=== PATIENT | female | born 1960 | race American Indian/Alaskan Native ===

== ENCOUNTER 2020-11-11 10:06 | Emergency (ER) | payer SELFPAY ==
[2020-11-11] VITALS (8 sets, daily range): BP systolic 103–130; BP diastolic 62–78; PULSE 71–95; RESP 16–32; TEMP 37; O2SAT 94–99; BMI 41.6
[2020-11-11] MEDS: sodium chloride 0.9% 1,000 ML 999 ML IV ×2 (10:39→12:45)
[2020-11-11] MEDS: ondansetron 2 mg/ML SDV 2 mL 4 MG IVP (10:40)
[2020-11-11 10:41] LABS: Basophils % 0.2 %; Hematocrit 35.1 % (37.0-47.0); Hemoglobin 11.8 g/dL (11.5-15.3); Lymphocytes # 1.6 10^3/uL (0.8-4.8); Lymphocytes % 15.4 %; Mean Corpuscular HGB Conc 33.6 g/dL (30.0-36.0); Mean Corpuscular Volume 101.2 fL (81-99); Mean Platelet Volume 9.5 fL (7.4-10.4); Monocytes # 0.8 10^3/uL (0.2-0.9); Monocytes % 7.7 %; Neutrophils # 8.07 10^3/uL (1.8-7.7); Neutrophils % 76.2 %; Nucleated Red Blood Cells % 0.4 %; Platelet Count 250 10^3/cmm (130-400); Red Blood Count 3.47 10^6/uL (4.1-5.3); Red Cell Distribution Width 13.2 % (12.1-15.1); White Blood Count 10.6 10^3/uL (4.0-10.0)
[2020-11-11 11:08] LABS: Alanine Aminotransferase 31 U/L (0-33); Albumin Level 4.3 g/dL (3.5-5.2); Alkaline Phosphatase 81 IU/L (35-105); Blood Urea Nitrogen 15 mg/dL (8-23); Calcium 8.2 mg/dL (8.5-10.5); Carbon Dioxide 21 mmol/L (22-29); Chloride 90 mmol/L (98-107); Globulin 2.4 g/dL (1.3-4.6); Glomerular Filtration Rate 45.5 mL/min (90-130); Glucose 150 mg/dL (65-115); Osmolality Calculated 278 mOsm/kg (285-295); Sodium 132 mmol/L (136-145); Total Bilirubin 0.7 mg/dL (0.15-1.2); Total Protein 6.7 g/dL (6.6-8.7)
--- NOTE | 2020-11-11 11:11 | PC.NURSE ---
patient stated felt better, no acute distress noted at this time.
[2020-11-11 11:12] LABS: Anion Gap 25.1 (5-19)
[2020-11-11 11:13] LABS: Aspartate Amino Transferase 71 U/L (0-32); Potassium 4.1 mmol/L (3.5-5.1)
--- NOTE | 2020-11-11 11:27 | ED_ITS ---
HPI - Nausea/Vomiting/Diarrhea General: Chief complaint: Nausea/Vomiting/Diarrhea Stated complaint: n/v having cp while n/v Time Seen by Provider: 11/11/20 10:27 History of Present Illness: HPI Narrative: 60 yo m female who presents to ER with comppiants of N/V and mild chest discomfort. She had been out in the heat for the last couple of days and had feeling feeling dehydrated lightheaded and dizzy. She then ate some chicken and crackers that she bought a local [employer] store and immediately got sick to her stomach and is vomiting. She states she feels dehydrated similar to something that happened 8 years ago. MD elicited complaint: nausea and vomiting Onset (ago): hour(s) Description of vomiting: food contents and watery Associated nausea: Yes Associated abdominal pain: Yes Location of pain: Diffuse Pain consistency: intermittent Severity: mild Quality: cramping Exacerbating factors: eating Associated symtoms: Reports bloating, anorexia, malaise and nausea; Denies altered mental status, anxiety, change in vision, chest pain, cough, diaphoresis, decreased urine output, dizziness, dysuria, epistaxis, fatigue, fecal incontinence, fevers/chills, headache(s), myalgias, numbness, palpitations, rash, short of breath, syncope, tenesmus, tinnitus or weakness Review of Systems Const: Reports: malaise; Denies: fatigue or diaphoresis Eyes: Denies: change in vision ENMT: Denies: tinnitus or epistaxis Card: Denies: chest pain, palpitations or syncope Resp: Denies: dyspnea, productive cough or non-productive cough GI: Reports: nausea and bloating; Denies: fecal incontinence : Denies: dysuria Skin/Breast: Denies: rash or pruritus Neuro: Denies: headache(s) or dizziness Psych: Denies: anxiety Physical Exam Const: COMMON NORMALS: no acute distress EXAM LIMITATIONS: no altered mental status GENERAL APPEARANCE: cooperative and comfortable ORIENTATIO N/CONSCIOUSNESS: Yes awake, Yes oriented to person, Yes oriented to place and Yes oriented to time HENMT: COMMON NORMALS: normocephalic, atraumatic, hearing grossly normal bilaterally and external ears normal HEAD & SCALP: normocephalic and atraumatic EXTERNAL EAR: Yes external ears normal Neck/C-Spine: COMMON NORMALS: no JVD Resp: COMMON NORMALS: normal respiratory effort, No retractions, No use of accessory muscles and clear to auscultation bilaterally AUSCULTATION: clear to auscultation bilaterally Cardio: COMMON NORMALS: no JVD, regular rate, regular rhythm and No murmurs present (Cardio) RATE: regular rate RHYTHM: regular rhythm GI: COMMON NORMALS: Soft to palpation and No hepatosplenomegaly present AUSCULTATION: Yes normoactive bowel sounds PALPATION: Yes Soft to palpation, No Tenderness to palpation present (GI), No Guarding due to palpation present (GI) and Yes No hepatosplenomegaly present Extremity: COMMON NORMALS: normal to inspection, capillary refill normal, no clubbing, cyanosis or edema, no calf tenderness and no pedal edema Neuro: SENSORIUM/ORIENTATION: Yes oriented to person, Yes oriented to place a nd Yes oriented to time Skin: COMMON NORMALS: no rashes or lesions noted GENERAL SKIN EXAM: no rashes or lesions noted Course Vital Signs: Vital signs: Vital Signs Temperature 98.6 F 11/11/20 10:18 Pulse Rate 92 11/11/20 15:47 Respiratory Rate 16 11/11/20 15:47 Blood Pressure 130/75 11/11/20 15:47 Pulse Oximetry 96 11/11/20 15:47 MDM - Nausea/Vomiting/Diarrhea MDM Narrative: Medical decision making narrative: Improved after fluids. Will discharge home with antiemetics clear liquid diet for 48 hours and advance as tolerated worsening symptoms return Lab Data: Labs: Lab Results 11/11/20 11/11/20 11/11/20 Range/Units 10:25 10:25 12:01 WBC 10.6 H (4.0-10.0) 10^3/ uL RBC 3.47 L (4.1-5.3) 10^6/u L Hgb 11.8 (11.5-15.3) g/dL Hct 35.1 L (37.0-47.0) % MCV 101.2 H (81-99) fL MCH 34.0 (28.0-34.0) pg MCHC 33.6 (30.0-36.0) g/dL RDW 13.2 (12.1-15.1) % Plt Count 250 (130-400) 10^3/c mm MPV 9.5 (7.4-10.4) fL Neut % (Auto) 76.2 % Lymph % (Auto) 15.4 % Hunt % (Auto) 7.7 % Eos % (Auto) 0.0 % Baso % (Auto) 0.2 % Neut # (Auto) 8.07 H (1.8-7.7) 10^3/u L Lymph # (Auto) 1.6 (0.8-4.8) 10^3/u L Hunt # (Auto) 0.8 (0.2-0.9) 10^3/u L Eos # (Auto) 0.0 (0.0-0.8) 10^3/u L Baso # (Auto) 0.0 (0.0-0.1) 10^3/u L Nucleated RBC % (a uto) 0.4 % Nucleated RBCs # 0.0 /100WBC Sodium 132 L (136-145) mmol/L Potassium 4.1 (3.5-5.1) mmol/L Chloride 90 L (98-107) mmol/L Carbon Dioxide 21 L (22-29) mmol/L Anion Gap 25.1 H (5-19) BUN 15 (8-23) mg/dL Creatinine 1.2 H (0.5-0.9) mg/dL GFR Calculation 45.5 L (90-130) mL/min Glucose 150 H (65-115) mg/dL Calculated Osmolal ity 278 L (285-295) mOsm/k g Calcium 8.2 L (8.5-10.5) mg/dL Total Bilirubin 0.7 (0.15-1.2) mg/dL AST 71 H (0-32) U/L ALT 31 (0-33) U/L Alkaline Phosphata se 81 (35-105) IU/L Total Protein 6.7 (6.6-8.7) g/dL Albumin 4.3 (3.5-5.2) g/dL Globulin 2.4 (1.3-4.6) g/dL Urine Color Yellow (Yellow) Urine Appearance Cloudy (CLEAR) Urine pH 5 (5-7) Ur Specific Gravit y 1.020 (1.005-1.030) Urine Protein Trace (Negative) Urine Glucose (UA) Norm (Normal) Urine Ketones 2+ H (Negative) Urine Blood 2+ H (Negative) Urine Nitrate Negative (Negative) Urine Bilirubin 2+ H (Negative) Urine Urobilinogen 1 H (Negative) mg/dL Ur Leukocyte Amy ase Negative (Negative) Urine RBC 0-4 H (0-2) /hpf Urine WBC 0-4 H (0-5) /hpf Ur Squamous Epith Cells 10-15 H (0-5) /hpf Amorphous Sediment Not Reportable Urine Bacteria 1+ H (NONE) /hpf Hyaline Casts 55-80 H /lpf Urine Mucus Trace /hpf 11/11/20 Range/Units 14:18 WBC (4.0-10.0) 10^3/ uL RBC (4.1-5.3) 10^6/u L Hgb (11.5-15.3) g/dL Hct (37.0-47.0) % MCV (81-99) fL MCH (28.0-34.0) pg MCHC (30.0-36.0) g/dL RDW (12.1-15.1) % Plt Count (130-400) 10^3/c mm MPV (7.4-10.4) fL Neut % (Auto) % Lymph % (Auto) % Hunt % (Auto) % Eos % (Auto) % Baso % (Auto) % Neut # (Auto) (1.8-7.7) 10^3/u L Lymph # (Auto) (0.8-4.8) 10^3/u L Hunt # (Auto) (0.2-0.9) 10^3/u L Eos # (Auto) (0.0-0.8) 10^3/u L Baso # (Auto) (0.0-0.1) 10^3/u L Nucleated RBC % (a uto) % Nucleated RBCs # /100WBC Sodium 133 L (136-145) mmol/L Potassium 3.7 (3.5-5.1) mmol/L Chloride 94 L (98-107) mmol/L Carbon Dioxide 22 (22-29) mmol/L Anion Gap 20.7 H (5-19) BUN 17 (8-23) mg/dL Creatinine 1.0 H (0.5-0.9) mg/dL GFR Calculation 56.2 L (90-130) mL/min Glucose 113 (65-115) mg/dL Calculated Osmolal ity 278 L (285-295) mOsm/k g Calcium 7.6 L (8.5-10.5) mg/dL Total Bilirubin (0.15-1.2) mg/dL AST (0-32) U/L ALT (0-33) U/L Alkaline Phosphata se (35-105) IU/L Total Protein (6.6-8.7) g/dL Albumin (3.5-5.2) g/dL Globulin (1.3-4.6) g/dL Urine Color (Yellow) Urine Appearance (CLEAR) Urine pH (5-7) Ur Specific Gravit y (1.005-1.030) Urine Protein (Negative) Urine Glucose (UA) (Normal) Urine Ketones (Negative) Urine Blood (Negative) Urine Nitrate (Negative) Urine Bilirubin (Negative) Urine Urobilinogen (Negative) mg/dL Ur Leukocyte Amy ase (Negative) Urine RBC (0-2) /hpf Urine WBC (0-5) /hpf Ur Squamous Epith Cells (0-5) /hpf Amorphous Sediment Urine Bacteria (NONE) /hpf Hyaline Casts /lpf Urine Mucus /hpf Discharge Plan Discharge Patient Disposition: Home Clinical Impression: Nausea & vomiting, Dehydration Condition: Stable Prescriptions: New Zofran 4 mg tablet 4 mg PO Q6H PRN (Reason: nausea and vomiting) Qty: 20 RF: 0 No Action lisinopril-hydrochlorothiazide 20-12.5 mg Tablet 1 tab PO DAILY PRN (Reason: Blood Pressure) RF: 0 Discharge Orders: Discharge ED (Routine); Ordered 11/11/20 Ordered By: Jitendra Rosas Discharge Diet: Clear Liquid Discharge Activity: Increase activity as tolerated Patient Instructions: Opioid Safety Activity Restrictions/Additional Instructions: Clear liquid diet for 24 to 48 hours and advance as tolerated. Follow-up with your primary care doctor. Return if you have further problems. Coding Level of Care Code ED Event Operations Manager for Louie Reyes
[2020-11-11 12:44] LABS: Add Urine Microscopic? YES; Bilirubin Urine 2+ (Negative); Blood Urine 2+ (Negative); Glucose Urine UA Norm (Normal); Ketones Urine 2+ (Negative); Leukocyte Esterase Urine Negative (Negative); Nitrate Urine Negative (Negative); Protein Urine Trace (Negative); Urine Appearance Cloudy (CLEAR); Urine Color Yellow (Yellow); Urobilinogen Urine 1 mg/dL (Negative); pH Urine 5 (5-7)
[2020-11-11 12:46] LABS: Bacteria Urine 1+ /hpf; RBC Urine 0-4 /hpf (0-2); WBC Urine 0-4 /hpf (0-5)
[2020-11-11] MEDS: promethazine 25 mg/mL SDV 1 mL 12.5 MG IM (12:46)
[2020-11-11 12:47] LABS: Add Urine Culture? No; Hyaline Casts Urine 55-80 /lpf; Mucus Urine TRACE /hpf
[2020-11-11 15:20] LABS: Anion Gap 20.7 (5-19); Blood Urea Nitrogen 17 mg/dL (8-23); Calcium 7.6 mg/dL (8.5-10.5); Carbon Dioxide 22 mmol/L (22-29); Chloride 94 mmol/L (98-107); Glomerular Filtration Rate 56.2 mL/min (90-130); Glucose 113 mg/dL (65-115); Osmolality Calculated 278 mOsm/kg (285-295); Potassium 3.7 mmol/L (3.5-5.1); Sodium 133 mmol/L (136-145)
--- NOTE | 2020-11-11 15:54 | PC.NURSE ---
outpatient form for enteric parasite panel and instructions given to patient
== END 2020-11-11 15:55 | disposition home or self-care (01) ==
PROVIDERS: Emergency Provider Family Medicine
DX: R11.2 Nausea with vomiting, unspecified (principal); E86.0 Dehydration
CPT/HCPCS: 80048; 80053; 81001; 85025; 96361; 96372; 96374; 99284; J2405; J2550; J7030

== ENCOUNTER 2021-06-11 13:04 | Inpatient (IN) | payer SELFPAY ==
[2021-06-11 13:15] VITALS: BP 135/80; PULSE 81; RESP 18; TEMP 36.6; O2SAT 100; BMI 37.0
--- NOTE | 2021-06-11 13:20 | ECG_ITS ---
[facility] Test Date: 2021-06-11 Pat Name: Denia Espino Department: Room: Gender: Female [employer] Supervisor: : 1960 Requested By: Nguyen Coley Order Number: [id number] Aleksandra MD: RAMÓN DAI Measurements Intervals [place] Rate: 72 P: 75 ME: 156 QRS: 67 QRSD: 104 T: 79 QT: 415 QTc: 456 Interpretive Statements SINUS RHYTHM No previous ECG available for comparison Electronically Signed On 06-11-2021 17:47:12 LINING CLEANER by RAMÓN DAI [email or web address]
--- NOTE | 2021-06-11 13:41 | ED_ITS ---
HPI - Chest Pain General: Chief Complaint: Chest Pain Stated Complaint: CP Time Seen by Provider: 06/11/21 13:35 Source: patient Limitations: no limitations History of Present Illness: HPI narrative: Patient with complaints of intermittent chest pain, tachycardia, palpitations and mild shortness of breath since last night. She states she lives alone and has had no exposures to flu or COVID. She states she has not seen anybody in at least 1 month. She denies any previous cardiac history. She states she has no other medical problems except for obesity. She states she is lost approximately 100 pounds in the last 2 months by dieting. Patient denies tobacco use. She takes no routine medications. MD complaint: chest pain Onset (ago): day(s) (2) Timing of current episode: episodic Prior episodes: No Onset: during rest Pain location: substernal Pain radiation: none Severity: mild Quality: aching Relieving factors: nothing Exacerbating factors: nothing Associated symptoms: Reports dyspnea and palpitations; Deny abdominal pain, diaphoresis, fever(s), leg edema, nausea, sense of impending doom, syncope or vomiting Treatment prior to arrival: none and aspirin (had asa last pm) Review of Systems Const: Denies: fever(s) or diaphoresis Eyes: Denies: change in vision ENMT: Denies: throat pain Card: Reports: chest pain and palpitations; Denies: lightheadedness or syncope Resp: Reports: dyspnea GI: Denies: abdominal pain, nausea or vomiting : Denies: flank pain Musc: Denies: neck pain or back pain Skin/Breast: Denies: rash or pruritus Neuro: Denies: headache(s) or numbness in extremities Psych: Denies: anxiety Mello/Lymph: Denies: enlarged lymph nodes Physical Exam Const: COMMON NORMALS: no acute distress, patient oriented x3, no limitations, healthy appearing, alert and well nourished EXAM LIMITATIONS: altered mental status GENERAL APPEARANCE: cooperative NUTRITIONAL APPEARANCE: obese morbidly obese HENMT: COMMON NORMALS: normocephalic and atraumatic HEAD & SCALP: normocephalic and atraumatic FACE & SINUS: normal facial exam Eye: COMMON NORMALS: EOMs intact bilaterally Neck/C-Spine: COMMON NORMALS: full ROM, no lymphadenopathy, supple, no meningeal signs and no JVD GENERAL: Yes normal visual inspection Lymph: LYMPHATIC: no lymphadenopathy noted Chest: COMMONS NORMALS: normal inspection of the chest and normal palpation of entire chest wall CHEST: No Ecchymosis present and No rash Resp: COMMON NORMALS: normal respiratory effort, No retractions, No use of accessory muscles and clear to auscultation bilaterally EFFORT & INSPECTION: No respiratory distress AUSCULTATION: clear to auscultation bilaterally Cardio: COMMON NORMALS: no JVD, regular rate, regular rhythm and Peripheral pulses 2+ throughout JUGULAR VENOUS DISTENTION: no JVD RATE: regular rate RHYTHM: regular rhythm PERIPHERAL PULSES: Peripheral pulses 2+ throughout GI: COMMON NORMALS: Normal to inspection, nondistended, normoactive bowel sounds present and non-tender : COMMON NORMALS: Yes no CVA tenderness BLADDER/KIDNEY EXAM: Yes no CVA tenderness Back/Pelvis: COMMON NORMALS: no CVA tenderness Extremity: COMMON NORMALS: normal to inspection, full ROM and capillary refill normal Neuro: COMMON NORMALS: patient oriented x3, CN's II-XII intact bilaterally, no focal motor deficits and no sensory deficits noted SENSORIUM/ORIENTATION: Yes alert MENINGEAL SIGNS: Yes no meningeal signs Psych: COMMON NORMALS: mental status grossly normal and Normal thought process present THOUGHT PROCESS: Normal thought process present Skin: COMMON NORMALS: no rashes or lesions noted and no wounds GENERAL SKIN EXAM: no rashes or lesions noted Course Vital Signs: Vital signs: Vital Signs Temperature 97.8 F 06/11/21 13:15 Pulse Rate 79 06/11/21 16:40 Respiratory Rate 16 06/11/21 16:40 Blood Pressure 139/58 06/11/21 16:40 Pulse Oximetry 100 06/11/21 16:40 MDM - Chest Pain MDM Narrative: Medical decision making narrative: 1635: 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 He suggested admission to the hospitalist and if stress test is positive he will consult. 1640: D/w Dr. Chaves. Lab Data: Attestation: I reviewed the patient's lab results. Labs: Lab Results 06/11/21 06/11/21 06/11/21 14:07 14:07 14:07 WBC 6.1 10^3/uL 10^3/ uL (4.0-10.0) RBC 3.04 10^6/uL L 10 ^6/uL (4.1-5.3) Hgb 10.8 g/dL L g/dL (11.5-15.3) Hct 33.0 % L % (37.0-47.0) MCV 108.6 fl H fl (81-99) MCH 35.5 pg H pg (28.0-34.0) MCHC 32.7 g/dL g/dL (30.0-36.0) RDW 15.2 % H % (12.1-15.1) Plt Count 238 10^3/cmm 10^3 /cmm (130-400) MPV 9.9 fL fL (7.4-10.4) Neut % (Auto) 63.5 % % Lymph % (Auto) 25.2 % % [place] % (Auto) 9.8 % % Eos % (Auto) 0.8 % % Baso % (Auto) 0.5 % % Neut # (Auto) 3.89 10^3/uL 10^3 /uL (1.8-7.7) Lymph # (Auto) 1.5 10^3/uL 10^3/ uL (0.8-4.8) [place] # (Auto) 0.6 10^3/uL 10^3/ uL (0.2-0.9) Eos # (Auto) 0.1 10^3/uL 10^3/ uL (0.0-0.8) Baso # (Auto) 0.0 10^3/uL 10^3/ uL (0.0-0.1) Nucleated RBC % (a uto) 0.3 % % Nucleated RBCs # 0.0 /100WBC /100W BC Sodium 137 mmol/L mmol/L (136-145) Potassium 3.7 mmol/L mmol/L (3.5-5.1) Chloride 98 mmol/L mmol/L (98-107) Carbon Dioxide 14 mmol/L L mmol/ L (22-29) Anion Gap 28.7 H (5-19) BUN 6 mg/dL L mg/dL (8-23) Creatinine 0.7 mg/dL mg/dL (0.5-0.9) GFR Calculation 84.5 mL/min L mL/ min (90-130) Glucose 106 mg/dL mg/dL (65-115) Calculated Osmolal ity 282 mOsm/kg L mOs m/kg (285-295) Calcium 8.4 mg/dL L mg/dL (8.5-10.5) Troponin T Baselin e 9 ng/L ng/L (0-10) Troponin T 120 Min maggie Delta Troponin T NT-Pro-B Natriuret Pep 1238 pg/mL H pg/m L (0-125) 06/11/21 16:04 WBC RBC Hgb Hct MCV MCH MCHC RDW Plt Count MPV Neut % (Auto) Lymph % (Auto) [place] % (Auto) Eos % (Auto) Baso % (Auto) Neut # (Auto) Lymph # (Auto) [place] # (Auto) Eos # (Auto) Baso # (Auto) Nucleated RBC % (a uto) Nucleated RBCs # Sodium Potassium Chloride Carbon Dioxide Anion Gap BUN Creatinine GFR Calculation Glucose Calculated Osmolal ity Calcium Troponin T Baselin e Troponin T 120 Min maggie 9.60 ng/L ng/L (0-10) Delta Troponin T 0.60 ABS# ABS# (0-10) NT-Pro-B Natriuret Pep Imaging Data^: CXR: Attestation: I personally reviewed and interpreted this imaging study as follows: My impression: Nothing acute on chest x-ray Radiologist's impression: PROCEDURE INFORMATION: Exam: XR Chest Exam date and time: 06/11/2021 1:45 PM Age: 61 years old Clinical indication: Chest pain/pressure. Dyspnea. TECHNIQUE: Imaging protocol: XR of the chest. Views: 1 view. COMPARISON: No relevant prior studies available. FINDINGS: Lungs: There is smooth bulging of the right hilum that could reflect an ascending thoracic aortic aneurysm. No pulmonary consolidation. Subsegmental atelectasis in the lower chest bilaterally. Pleural spaces: No pleural effusion. No pneumothorax. Heart/Mediastinum: The cardiac silhouette is unremarkable. No gross evidence of pneumomediastinum. Bones/joints: No gross fracture. There is widening of the AC joint on the right which could reflect acute or remote acromioclavicular joint separation or prior surgery. XR/XR chest 1V portable [id number] IMPRESSION: 1. There is smooth bulging of the right hilum that could reflect an ascending thoracic aortic aneurysm. Consider CTA chest to further assess if clinically warranted. 2. There is widening of the AC joint on the right which could reflect acute or remote acromioclavicular joint separation or prior surgery. Correlate clinically. Dictated By:Ronak Duranigned By:Ronak Duranigned Date/Time:06/11/[address] Chest: Radiologist's impression: PROCEDURE INFORMATION: Exam: CTA Chest Without And With Contrast Exam date and time: 06/11/2021 3:20 PM Age: 61 years old Clinical indication: Chest pressure/pain. Complains of central chest pain/pressure with abnormal chest x-ray. TECHNIQUE: Imaging protocol: Computed tomographic angiography of the chest without and with contrast. 3D rendering (Not supervised by radiologist): MIP and/or 3D reconstructed images were created by the technologist. Radiation optimization: All CT scans at this facility use at least one of these dose optimization techniques: automated exposure control; mA and/or kV adjustment per patient size (includes targeted exams where dose is matched to clinical indication); or iterative reconstruction. Contrast material: OMNI 350; Contrast volume: 95 ml; Contrast route: INTRAVENOUS (IV); COMPARISON: CR (CHEST, ) 06/11/2021 2:15 PM RADIATION DOSE METRICS: Total DLP (mGy-cm): 1446.37 FINDINGS: Pulmonary arteries: No acute pulmonary embolus is identified. The main pulmonary artery is enlarged (4 cm) suspicious for pulmonary arterial hypertension. Aorta: No thoracic aortic aneurysm. No thoracic aortic dissection. Lungs: Calcified granuloma in the right upper lobe. Subsegmental atelectasis in the lingula. No pulmonary consolidation. No pulmonary mass. Pleural spaces: No pleural effusion. No pneumothorax. Heart: No pericardial effusion. Lymph nodes: Small calcified right hilar lymph nodes are noted. No significant mediastinal lymphadenopathy. Diaphragm: Small hiatal hernia. Liver: There is diffuse hepatic steatosis. There is a lesion between the left hepatic lobe and the overlying diaphragm that measures 1.0 x 1.7 x 1.4 cm. There are multiple splenules the left upper quadrant. Bones/joints: No acute fracture is seen. Soft tissues: Incompletely visualized nodule in the right breast with an associated calcification. This nodule measures at least 1.[address]/CT angio chest [id number] IMPRESSION: 1. No acute pulmonary embolus is identified. No thoracic aortic aneurysm or dissection. 2. The main pulmonary artery is enlarged (4 cm) suspicious for pulmonary arterial hypertension. 3. Lesion situated between the left hepatic lobe and the overlying diaphragm. Recommend nonemergent MR abdomen hepatic protocol with and without contrast to better characterize. 4. Incompletely visualized nodule in the right breast with an associated calcification. Recommend nonemergent diagnostic right breast mammogram with concurrent ultrasound to further assess. 5. Small hiatal hernia. 6. Diffuse hepatic steatosis. Dictated By:Ronak Duranigned By:Ronak Duranigned Date/Time:06/11/21 1622 EKG Data^: EKG 1: Attestation: I personally reviewed and interpreted this EKG as follows: EKG interpretation date: 06/11/21 EKG interpretation time: 13:45 Interpretation: Normal EKG. Normal sinus rhythm with heart rate of 72. Normal axis. Normal OH interval, normal QRS, normal T waves, normal ST segments. Normal QT interval. Discharge Plan Discharge Patient Disposition: Placed in Observation Clinical Impression: Chest pain Qualifiers: Chest pain type: unspecified Qualified Code(s): R07.9 - Chest pain, unspecified Coding Level of Care Code ED Charge Manager for Chg Fwd Exam Comprehensive
--- NOTE | 2021-06-11 13:45 | XRR_ITS ---
PROCEDURE INFORMATION: Exam: XR Chest Exam date and time: 06/11/2021 1:45 PM Age: 61 years old Clinical indication: Chest pain/pressure. Dyspnea. TECHNIQUE: Imaging protocol: XR of the chest. Views: 1 view. COMPARISON: No relevant prior studies available. FINDINGS: Lungs: There is smooth bulging of the right hilum that could reflect an ascending thoracic aortic aneurysm. No pulmonary consolidation. Subsegmental atelectasis in the lower chest bilaterally. Pleural spaces: No pleural effusion. No pneumothorax. Heart/Mediastinum: The cardiac silhouette is unremarkable. No gross evidence of pneumomediastinum. Bones/joints: No gross fracture. There is widening of the AC joint on the right which could reflect acute or remote acromioclavicular joint separation or prior surgery. XR/XR chest 1V portable [id number] IMPRESSION: 1. There is smooth bulging of the right hilum that could reflect an ascending thoracic aortic aneurysm. Consider CTA chest to further assess if clinically warranted. 2. There is widening of the AC joint on the right which could reflect acute or remote acromioclavicular joint separation or prior surgery. Correlate clinically.
[2021-06-11 14:16] LABS: Basophils % 0.5 %; Eosinophils # 0.1 10^3/uL (0.0-0.8); Eosinophils % 0.8 %; Hemoglobin 10.8 g/dL (11.5-15.3); Lymphocytes # 1.5 10^3/uL (0.8-4.8); Lymphocytes % 25.2 %; Mean Corpuscular HGB Conc 32.7 g/dL (30.0-36.0); Mean Corpuscular Hemoglobin 35.5 pg (28.0-34.0); Mean Corpuscular Volume 108.6 fl (81-99); Mean Platelet Volume 9.9 fL (7.4-10.4); Monocytes # 0.6 10^3/uL (0.2-0.9); Monocytes % 9.8 %; Neutrophils # 3.89 10^3/uL (1.8-7.7); Neutrophils % 63.5 %; Nucleated Red Blood Cells % 0.3 %; Platelet Count 238 10^3/cmm (130-400); Red Blood Count 3.04 10^6/uL (4.1-5.3); Red Cell Distribution Width 15.2 % (12.1-15.1); White Blood Count 6.1 10^3/uL (4.0-10.0)
[2021-06-11] MEDS: aspirin 81 mg Chew Tablet 324 MG PO (14:28)
[2021-06-11 14:41] LABS: Troponin(5th) Baseline 9 ng/L (0-10)
[2021-06-11 14:44] LABS: Blood Urea Nitrogen 6 mg/dL (8-23); Calcium 8.4 mg/dL (8.5-10.5); Carbon Dioxide 14 mmol/L (22-29); Chloride 98 mmol/L (98-107); Glomerular Filtration Rate 84.5 mL/min (90-130); Glucose 106 mg/dL (65-115); NT Pro B Type Natriuretic Pept 1238 pg/mL (0-125); Osmolality Calculated 282 mOsm/kg (285-295); Sodium 137 mmol/L (136-145)
[2021-06-11 14:48] LABS: Anion Gap 28.7 (5-19); Potassium 3.7 mmol/L (3.5-5.1)
--- NOTE | 2021-06-11 15:20 | CTR_ITS ---
PROCEDURE INFORMATION: Exam: CTA Chest Without And With Contrast Exam date and time: 06/11/2021 3:20 PM Age: 61 years old Clinical indication: Chest pressure/pain. Complains of central chest pain/pressure with abnormal chest x-ray. TECHNIQUE: Imaging protocol: Computed tomographic angiography of the chest without and with contrast. 3D rendering (Not supervised by radiologist): MIP and/or 3D reconstructed images were created by the technologist. Radiation optimization: All CT scans at this facility use at least one of these dose optimization techniques: automated exposure control; mA and/or kV adjustment per patient size (includes targeted exams where dose is matched to clinical indication); or iterative reconstruction. Contrast material: OMNI 350; Contrast volume: 95 ml; Contrast route: INTRAVENOUS (IV); COMPARISON: CR (CHEST, ) 06/11/2021 2:15 PM RADIATION DOSE METRICS: Total DLP (mGy-cm): 1446.37 FINDINGS: Pulmonary arteries: No acute pulmonary embolus is identified. The main pulmonary artery is enlarged (4 cm) suspicious for pulmonary arterial hypertension. Aorta: No thoracic aortic aneurysm. No thoracic aortic dissection. Lungs: Calcified granuloma in the right upper lobe. Subsegmental atelectasis in the lingula. No pulmonary consolidation. No pulmonary mass. Pleural spaces: No pleural effusion. No pneumothorax. Heart: No pericardial effusion. Lymph nodes: Small calcified right hilar lymph nodes are noted. No significant mediastinal lymphadenopathy. Diaphragm: Small hiatal hernia. Liver: There is diffuse hepatic steatosis. There is a lesion between the left hepatic lobe and the overlying diaphragm that measures 1.0 x 1.7 x 1.4 cm. There are multiple splenules the left upper quadrant. Bones/joints: No acute fracture is seen. Soft tissues: Incompletely visualized nodule in the right breast with an associated calcification. This nodule measures at least 1.[address]/CT angio chest [id number] IMPRESSION: 1. No acute pulmonary embolus is identified. No thoracic aortic aneurysm or dissection. 2. The main pulmonary artery is enlarged (4 cm) suspicious for pulmonary arterial hypertension. 3. Lesion situated between the left hepatic lobe and the overlying diaphragm. Recommend nonemergent MR abdomen hepatic protocol with and without contrast to better characterize. 4. Incompletely visualized nodule in the right breast with an associated calcification. Recommend nonemergent diagnostic right breast mammogram with concurrent ultrasound to further assess. 5. Small hiatal hernia. 6. Diffuse hepatic steatosis.
[2021-06-11] MEDS: iohexol 350 mg/mL 100 mL Btl IV (15:52)
[2021-06-11 16:40] VITALS: BP 139/58; PULSE 79; RESP 16; O2SAT 100
[2021-06-11 16:59] LABS: Erythrocyte Sedimentation Rate 21 mm/hr (0-15)
[2021-06-11 17:18] LABS: Alanine Aminotransferase 9 U/L (0-33); Aspartate Amino Transferase 27 U/L (0-32); Gamma Glutamyl Transferase 98 U/L (5-36); Lactate Dehydrogenase 139 U/L (135-214)
[2021-06-11 17:24] LABS: Procalcitonin 0.07 ng/mL (0-0.5)
--- NOTE | 2021-06-11 17:41 | PM.HP ---
Providers/Chief Complaint Chief Complaint: CP History of Present Illness Denia Espino is a 61 year old female with a past medical history of morbid obesity, hypertension, who presents to [facility] for chest pain. 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 Also describes some nausea, no right upper quadrant pain. In the emergency room her initial troponin was negative, EKG no acute ST-T wave changes, CTA negative for pulm emboli or aortic dissection, hospitalist team was called for admission Review of Systems Const: Denies: fever(s), chills, fatigue or malaise Eyes: Denies: change in vision or blurry vision ENMT: Denies: nasal congestion Resp: Denies: dyspnea, productive cough, non-productive cough or wheezing GI: Denies: abdominal pain, nausea, vomiting, constipation, hematochezia or melena : Denies: flank pain, dysuria or urinary frequency Neuro: Denies: headache(s), dizziness or vertigo Medications/Allergies Home Medications Medication Instructions Recorded Confirmed Last Taken Type No Known Home Medications 06/11/21 06/11/21 Unknown History Allergies Allergy/AdvReac Type Severity Reaction Status Date / Time acetaminophen [From Vicodin] Allergy ADR-Vomitin Verified 11/11/20 10:26 g cephalexin [From Keflex] Allergy ADR-Vomitin Verified 11/11/20 10:26 g hydrocodone [From Vicodin] Allergy ADR-Vomitin Verified 11/11/20 10:26 g propoxyphene [From Darvon] Allergy ADR-Vomitin Verified 11/11/20 10:26 g PFSH Acute PFSH: Medical History (Updated 06/11/21 @ 17:43 by Rian Chaves MD) History of hypertension Morbid obesity Surgical History (Updated 06/11/21 @ 17:43 by Rian Chaves MD) History of right hip replacement Status post splenectomy Family History (Updated 06/11/21 @ 17:43 by Rian Chaves MD) Mother CAD (coronary artery disease) Father Stroke Social History (Updated 06/11/21 @ 17:44 by Rian Chaves MD) Smoking and tobacco status: never smoked Alcohol intake: never Substance/Drug Use: never Vitals/I&O/Wt Last Vital Signs Temp 97.8 F 06/11/21 13:15 Pulse 79 06/11/21 16:40 Resp 16 06/11/21 16:40 BP 139/58 06/11/21 16:40 Pulse Ox 100 06/11/21 16:40 Weight last 48 hrs Weight 94.801 kg Physical Exam Const: COMMON NORMALS: no acute distress and patient oriented x3 GENERAL APPEARANCE: cooperative and comfortable HENMT: COMMON NORMALS: normocephalic HEAD & SCALP: normocephalic Eye: COMMON NORMALS: Equal, round and reactive pupils present, EOMs intact bilaterally and no papilledema GENERAL EYE: appearance normal, both eyes and all related structures PUPIL: Yes Equal, round and reactive pupils present Neck/C-Spine: COMMON NORMALS: full ROM, no lymphadenopathy, no JVD and Thyroid normal THYROID: Thyroid normal Lymph: LYMPHATIC: no lymphadenopathy noted Resp: COMMON NORMALS: normal respiratory effort, No retractions, No use of accessory muscles and clear to auscultation bilaterally AUSCULTATION: clear to auscultation bilaterally Cardio: COMMON NORMALS: no JVD, regular rate, regular rhythm, S1 normal heart sound present, S2 normal heart sound present, No gallops present (Cardio), No clicks present (Cardio) and No murmurs present (Cardio) RATE: regular rate RHYTHM: regular rhythm HEART SOUNDS: S1 normal heart sound present and S2 normal heart sound present GI: COMMON NORMALS: Normal to inspection, nondistended, normoactive bowel sounds present, Soft to palpation, non-tender and No hepatosplenomegaly present PALPATION: Yes Soft to palpation and Yes Tenderness to palpation present (GI) Details: RUQ Extremity: COMMON NORMALS: normal to inspection, full ROM and no pedal edema Neuro: COMMON NORMALS: patient oriented x3, CN's II-XII intact bilaterally, moves all extremities and no focal motor deficits Psych: COMMON NORMALS: mental status grossly normal, Normal thought process present and cooperative THOUGHT PROCESS: Normal thought process present Data : 06/11/21 14:07 06/11/21 14:07 A&P Assessment and plan (1) Chest pain: - Admit to cardiac stepdown unit -Serial troponins, serial EKGs, monitor for chest pain -Aspirin, statin -Nitro as needed for chest pain -Cardiac echocardiogram -Right upper quadrant ultrasound, LFTs -Elevated BNP, consider Lasix -N.p.o. 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
[2021-06-11 20:18] VITALS: PULSE 97; RESP 16; O2SAT 98
[2021-06-11 20:55] VITALS: BMI 40.8
[2021-06-11 20:55] LABS: Troponin 5 6HR 10.07 ng/L (0-10); Troponin 5 6HR Delta 1.07 ng/L (0-12)
[2021-06-11 21:00] VITALS: BP 125/68; PULSE 95; RESP 16; TEMP 36.7; O2SAT 97
[2021-06-11] MEDS: famotidine 20 mg Tablet PO (21:20)
[2021-06-11] MEDS: atorvastatin 40 mg Tablet PO (21:20)
[2021-06-11 21:29] LABS: Thyroid Stimulating Hormone 4.83 uIU/mL (0.27-4.20)
[2021-06-11] MEDS: diphenhydrAMINE 50 mg Capsule PO (23:30)
[2021-06-11 23:34] VITALS: BP 134/64; PULSE 87; RESP 16; TEMP 36.5; O2SAT 95
[2021-06-12] VITALS (8 sets, daily range): BP systolic 102–119; BP diastolic 60–72; PULSE 70–139; RESP 13–18; TEMP 36.5–37.1; O2SAT 95–98
--- NOTE | 2021-06-12 03:33 | ECG_ITS ---
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: : 1960 Requested By: Damion Sparks Order Number: [id number] Aleksandra MD: RAMÓN DAI Measurements Intervals [place] Rate: 169 P: OR: QRS: 32 QRSD: 102 T: -60 QT: 257 QTc: 432 Interpretive Statements ATRIAL FIBRILLATION WITH RAPID VENTRICULAR RESPONSE NONSPECIFIC ST & T-WAVE ABNORMALITY CRITICAL TEST RESULT Compared to ECG 06/11/2021 13:13:40 T-wave abnormality now present Sinus rhythm no longer present Electronically Signed On 06-12-2021 20:53:51 CIGAR MAKING MACHINE SUPERVISOR by RAMÓN DAI [id number]
[2021-06-12] MEDS: metoprolol tartrate 1 mg/1 mL SDV 5 mL 5 MG (03:50)
[2021-06-12] MEDS: sodium chloride 0.9% 500 ML 999 ML IV (04:28)
[2021-06-12 05:33] LABS: Basophils % 0.5 %; Eosinophils # 0.2 10^3/uL (0.0-0.8); Eosinophils % 2.5 %; Hemoglobin 10.3 g/dL (11.5-15.3); Lymphocytes # 2.3 10^3/uL (0.8-4.8); Lymphocytes % 37.2 %; Mean Corpuscular HGB Conc 33.2 g/dL (30.0-36.0); Mean Corpuscular Hemoglobin 35.6 pg (28.0-34.0); Mean Corpuscular Volume 107.3 fl (81-99); Mean Platelet Volume 10.7 fL (7.4-10.4); Monocytes # 0.6 10^3/uL (0.2-0.9); Monocytes % 10.5 %; Neutrophils # 2.98 10^3/uL (1.8-7.7); Neutrophils % 48.8 %; Nucleated Red Blood Cells % 0.3 %; Platelet Count 204 10^3/cmm (130-400); Red Blood Count 2.89 10^6/uL (4.1-5.3); Red Cell Distribution Width 15.1 % (12.1-15.1); White Blood Count 6.1 10^3/uL (4.0-10.0)
[2021-06-12 06:03] LABS: Alanine Aminotransferase 9 U/L (0-33); Albumin Level 3.5 g/dL (3.5-5.2); Alkaline Phosphatase 105 IU/L (35-105); Aspartate Amino Transferase 23 U/L (0-32); Blood Urea Nitrogen 6 mg/dL (8-23); Calcium 9.1 mg/dL (8.5-10.5); Carbon Dioxide 20 mmol/L (22-29); Chloride 100 mmol/L (98-107); Chol HDL Ratio 1.79 mg/dL (0.0-4.40); Cholesterol 183 mg/dL (0-200); Creatinine Clr Calc Pharmacy 111.0493; Globulin 2.4 g/dL (1.3-4.6); Glucose 108 mg/dL (65-115); HDL Cholesterol 102 mg/dL (60-100); LDL Cholesterol Calculated 59 mg/dL (50-129); LDL HDL Ratio 0.58 RATIO (0.00-3.22); Magnesium 1.5 mg/dL (1.7-2.3); NT Pro B Type Natriuretic Pept 396 pg/mL (0-125); Osmolality Calculated 280 mOsm/kg (285-295); Sodium 136 mmol/L (136-145); Total Bilirubin 0.7 mg/dL (0.15-1.2); Total Protein 5.9 g/dL (6.6-8.7); Triglycerides 110 mg/dL (0-150)
[2021-06-12 06:31] LABS: Estmated Average Glucose 74; Hemoglobin A1C 4.2 % (4.0-6.0)
[2021-06-12 06:42] LABS: Phosphorus 0.4 mg/dL (2.5-4.5)
--- NOTE | 2021-06-12 06:44 | PC.NURSE ---
Critical phosphorus of 0.4 reported to special education coordinator hospitalist.
--- NOTE | 2021-06-12 07:34 | ECG_ITS ---
[facility] Test Date: 2021-06-12 Pat Name: Denia Espino Department: Room: 108 Gender: Female Special Shopper: Telma Domingo : 1960 Requested By: Rian Chaves Order Number: [id number] Aleksandra MD: Jada Seymour M.D. Interpretive Statements NAME OF STUDY: LEXISCAN SESTAMIBI STRESS TEST INDICATION: Chest Pain PROCEDURE: At the baseline, the blood pressure was 99/72 mm Hg, oxygen saturation of 97% with a heart rate of 90 bpm. The electrocardiogram showed normal sinus rhythm, normal axis and normal ST-T's. The Lexiscan was infused over a period of 20 seconds. A total of 0.4 milligrams of Lexiscan was infused. The stress phase was continued for a total of 5 minutes. Heart rate at the end of the stress phase was 90 bpm, oxygen saturation of 97% with a blood pressure of 102/73 mm Hg. The EKG at the peak infusion revealed no significant ST-T wave changes.The study was terminated due to protocol completion. Sestamibi was injected 20 seconds after the Lexiscan infusion. Blood pressure at the end of the recovery phase was 111/71 bpm, oxygen saturation of 96% with a heart rate of 88 beats per minute. CONCLUSION: 1. No significant EKG changes with the LexiScan infusion. 2. No LexiScan induced chest pain or cardiac arrhythmia. 3. Normal blood pressure and heart rate response. 4. Sestamibi/sestamibi perfusion scan pending; see separate report. Electronically Signed On 06-12-2021 19:52:37 BAKESHOP CLEANER by Jada Seymour M.D. [id number]
[2021-06-12] MEDS: regadenoson 0.4 Mg/5 ml Syringe IVP (08:11)
[2021-06-12] MEDS: ondansetron 2 mg/ML SDV 2 mL 4 MG IVP (08:15)
[2021-06-12] MEDS: phosphorus 250 mg Tablet PO ×2 (09:29→18:22)
[2021-06-12] MEDS: aspirin 81 mg EC Tablet PO (09:29)
[2021-06-12] MEDS: famotidine 20 mg Tablet PO ×2 (09:29→18:22)
[2021-06-12] MEDS: magnesium sulfate premix 2 GM/50 ML PIGGYBACK IV (09:30)
--- NOTE | 2021-06-12 15:54 | P.PN_ITS ---
Subjective Subjective: Interval history: Patient was seen this morning, she was seen in the stress unit lab, currently denying chest pain, she developed A. fib overnight, converted to normal sinus rhythm, currently on Cardizem drip, she also had a accidental fall out of bed, fell on both knees, currently minimal pain, no head trauma, no loss of consciousness, currently denying any chest pain Vitals/I&O/Wt Last Vital Signs Temp 98.8 F 06/12/21 15:11 Pulse 90 06/12/21 15:11 Resp 15 06/12/21 15:11 BP 110/60 06/12/21 11:09 Pulse Ox 98 06/12/21 15:11 06/12/21 06/12/21 06/12/21 06:59 14:59 22:59 Intake Total 754.833 / 994.833 480 / 480 Output Total 200 / 200 Balance 554.833 / 794.833 480 / 480 Weight last 48 hrs Weight 104.644 kg Weight 94.801 kg Physical Exam Const: COMMON NORMALS: no acute distress and patient oriented x3 Resp: COMMON NORMALS: normal respiratory effort, No retractions, No use of accessory muscles and clear to auscultation bilaterally AUSCULTATION: clear to auscultation bilaterally Cardio: COMMON NORMALS: regular rate, regular rhythm, S1 normal heart sound present and S2 normal heart sound present RATE: regular rate RHYTHM: regular rhythm HEART SOUNDS: S1 normal heart sound present and S2 normal heart sound present GI: COMMON NORMALS: Normal to inspection, nondistended, normoactive bowel sounds present, Soft to palpation and non-tender PALPATION: Yes Soft to palpation Extremity: COMMON NORMALS: no pedal edema Neuro: COMMON NORMALS: patient oriented x3 Psych: COMMON NORMALS: mental status grossly normal Data : 06/12/21 04:16 06/12/21 04:16 A&P Assessment and plan (1) Chest pain: - Admit to cardiac stepdown unit -Serial troponins, serial EKGs, monitor for chest pain -Aspirin, statin -Nitro as needed for chest pain -Cardiac echocardiogram pending -Cardiac stress test pending -Elevated BNP, consider Lasix -Patient tells me that she wants to be DNR/DNI, as her father suffered a stroke and laid in the hospital for 6 weeks and she does not want to have that happen to her Hypokalemia, replaced Hypophosphatemia replace Hypomagnesemia replace A. fib with RVR, converted to normal sinus rhythm, continue aspirin Pulm hypertension continue monitor Lesion left hepatic lobe, ultrasound pending Breast lesion, needs outpatient follow-up Status: Acute Qualifiers: Chest pain type: unspecified Qualified Code(s): R07.9 - Chest pain, unspecified (2) Hypokalemia: Status: Acute (3) Hypophosphatemia: Status: Acute (4) Hypomagnesemia: Status: Acute (5) Atrial fibrillation with RVR: Status: Acute Attestations Medical Necessity Statement*: Patient requires hospitalization for chest pain, hypokalemia, hypomagnesemia, hypophosphatemia Coding Level of Care Code 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
--- NOTE | 2021-06-12 15:57 | CTR_ITS ---
PROCEDURE INFORMATION: Exam: CT Abdomen And Pelvis Without And With Contrast Exam date and time: 06/12/2021 3:57 PM Age: 61 years old Clinical indication: Nausea; Prior surgery; Surgery type: Tubal; Additional info: CT liver 3 phase, CT liver 3 phase TECHNIQUE: Imaging protocol: Computed tomography of the abdomen and pelvis without and with contrast. Radiation optimization: All CT scans at this facility use at least one of these dose optimization techniques: automated exposure control; mA and/or kV adjustment per patient size (includes targeted exams where dose is matched to clinical indication); or iterative reconstruction. Contrast material: OMNI 300; Contrast volume: 95 ml; Contrast route: INTRAVENOUS (IV); COMPARISON: CT angio chest [id number] 06/11/2021 3:43 PM RADIATION DOSE METRICS: Total DLP (mGy-cm): 4473.1 FINDINGS: Liver: Mild diffuse hepatic steatosis. There is a wedge-shaped geographic area of decreased attenuation within segment 4 B which has the appearance of focal fat; there is a similar but smaller area within segment 5 along the gallbladder fossa. No enhancing hepatic lesion. Gallbladder and bile ducts: Gallbladder slightly contracted. No visualized stones. Normal caliber bile duct. Pancreas: Normal. No ductal dilation. Spleen: Splenosis in the left upper quadrant. Adrenal glands: Normal. No mass. Kidneys and ureters: Normal. No hydronephrosis. Stomach and bowel: No bowel obstruction. Mild colonic diverticulosis. No active diverticulitis. Appendix: No evidence of appendicitis. Intraperitoneal space: Unremarkable. No free air. No significant fluid collection. Vasculature: No abdominal aortic aneurysm. Incidental 15 mm partially calcified right renal artery aneurysm on image 39 series 4; no rupture. There are 2 right renal arteries. Lymph nodes: Unremarkable. No enlarged lymph nodes. Urinary bladder: Unremarkable as visualized. Reproductive: Slightly lobular uterus with suspected fibroids. Bones/joints: Lumbar degenerative changes. No acute or aggressive osseous lesion. Right hip prosthesis. Soft tissues: Unremarkable. CT/CT abdomen pelvis wo/w [id number] IMPRESSION: 1. Geographic areas of focal fat within hepatic segments IVb and V5, on a background of mild diffuse steatosis. No enhancing liver lesion. 2. Diverticulosis without evidence of active diverticulitis. 3. Lobular uterus with suspected fibroids. 4. 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 This can be evaluated by vascular surgery on a non emergent basis. At the minimum, follow-up CT recommended in 1 year if this has not previously been documented. 5. Right hip prosthesis with related artifact.
[2021-06-12 16:20] LABS: Anion Gap 17.8 (5-19); Blood Urea Nitrogen 8 mg/dL (8-23); Calcium 9.4 mg/dL (8.5-10.5); Carbon Dioxide 23 mmol/L (22-29); Chloride 98 mmol/L (98-107); Glomerular Filtration Rate 161.2 mL/min (90-130); Glucose 115 mg/dL (65-115); Osmolality Calculated 279 mOsm/kg (285-295); Phosphorus 1.1 mg/dL (2.5-4.5); Potassium 3.8 mmol/L (3.5-5.1); Sodium 135 mmol/L (136-145)
[2021-06-12] MEDS: iohexol 300 mg/mL 100 mL Btl IV (18:55)
[2021-06-12] MEDS: LORazepam 1 mg Tablet PO (20:21)
[2021-06-12] MEDS: atorvastatin 40 mg Tablet PO (20:21)
--- NOTE | 2021-06-12 20:41 | PC.NURSE ---
Patient asking to speak with a vegetable washer.
--- NOTE | 2021-06-12 20:42 | NMCV_ITS ---
NM grayson perf SPECT r/s* [id number] Denia Espino Age: 61 Gender: F : 1960 Exam Date: 06/12/2021 07:26 Ordering Phys: Rian Chaves MD Technologist: VICKY Sifuentes Exam Location: [facility] Indications: CHEST PAIN STRESS TEST Please see separate stress test report in [facility] for full findings IMAGE PROTOCOL Rest/Stress 1 Lexiscan Day Radiopharmaceutical Dose (mCi) Administration Site Administered by Rest: Tc-99m 10.8 IV VICKY Stoddard Sestamibi Stress:Tc-99m 32.9 IV VICKY Stoddard Sestamibi Rest: 12-Jun-2021 60 Discovery 630 Stress: 12-Jun-2021 30 Discovery 630 0.4mg Lexiscan. Images obtained in supine and prone position. SPECT RESULTS Technical Quality: Excellent Raw Data Analysis: Normal Image Corrections: No attenuation or motion correction applied Summed Stress Score: 2 Summed Rest Score: 0 Summed Difference Score: 2 PERFUSION FINDINGS Small area of moderately decreased tracer uptake in the mid inferolateral region with complete reversibility in the supine position. However with the prone imaging, there was no reversible defects FUNCTIONAL RESULTS (calculated via Gated SPECT) Stress Image LV EF (%): 64 Stress EDV (mL):114 TID: 1.07 Stress ESV (mL):41 FUNCTIONAL FINDINGS: Segmental wall motion analysis revealing no gross wall motion abnormalities. IMPRESSIONS 1. Myocardial perfusion imaging revealing a small area of reversibility within the mid inferolateral region, suggestive of ischemia in the distribution of the circumflex artery. However because of inconsistency with the prone imaging, this could be artifactual. 2. Normal LV ejection fraction of 64%. 3. LV wall motion analysis revealing no gross wall motion abnormalities. 4. Normal LV volume. No similar previous studies are available for comparison. Clinical correlation is recommended Dr James Azar MD [facility] (Electronically Signed) Final Date: 12 June 2021 18:01 S
--- NOTE | 2021-06-12 20:42 | US_ITS ---
WS: [id number] Complete ABDOMINAL ULTRASOUND HISTORY: hepatic lesion COMPARISON: CT 06/11/2021 Liver: 18.0 cm in length. Liver is moderately enlarged and heterogeneous. Diffuse coarse echotexture throughout the liver. Previously described area of decreased attenuation along the falciform ligament seen by CT is not apparent by ultrasound. No mass identified. Liver is of increased echogenicity as compared to the liver consistent with hepatic steatosis. Portal Vein: Not visualized. Gallbladder: Normally distended with no gallstones, wall thickening or pericholecystic fluid. Gallbladder wall thickness: 0.3 cm. Pancreas: Poorly visualized but does appear atrophic. CBD: 0.5 cm. Right kidney: 12.0 cm x 6.1 cm x 5.9 cm. No mass, cortical thickening or hydronephrosis. Left kidney: 12.2 cm x 5.8 cm x 6.3 cm. No mass, cortical thickening or hydronephrosis. Spleen: Prior splenectomy. Abdominal aorta and IVC are within normal limits. No ascites. US/US abdomen complete* [id number] IMPRESSION: 1. Moderately enlarged liver with diffuse hepatic steatosis. Mass or focal valeria er abnormality is not visualized by ultrasound. I favor the changes within the liver may be due to hepatic steatosis. 2. Recommend MRI liver with and without contrast for further evaluation. This lesion was not included in its entirety on the CT therefore needs further evalu ation. 3. Normal gallbladder.
--- NOTE | 2021-06-12 20:42 | USCV_ITS ---
Denia Espino Age: 61 Gender: F : 1960 Exam Date: 06/12/2021 10:40 Ordering Phys: Rian Chaves MD Technologist: Nataliya Simms Exam Location: [facility] [place] Indication: SOB TACHY BP: 109 / 68 HR: 81 Rhythm: Sinus Technical Quality: Adequate MEASUREMENTS (Male / Female) Normal Values 2D ECHO LV Diastolic Diameter PLAX 4.1 cm 4.2 - 5.9 / 3.9 - 5.3 cm LV Systolic Diameter PLAX 1.9 cm LV Chamber Size 3.8 cm IVS Diastolic Thickness 1.0 cm 0.6 - 1.0 / 0.6 - 0.9 cm IVS Systolic Thickness 0.9 cm LVPW Diastolic Thickness 1.1 cm 0.6 - 1.0 / 0.6 - 0.9 cm LVPW Systolic Thickness 1.5 cm RV Chamber Size 2.3 cm LVOT Diameter 2.0 cm LV Ejection Fraction 2D Teich 85.1 % LV Ejection Fraction MOD 2C 57.9 % LV Ejection Fraction 2C AL 56.6 % LA Diameter 3.3 cm LA Width 3.1 cm LA Height 4.1 cm RA Width 4.2 cm RA Height 4.1 cm Aorta at Sinotubular Diameter 2.9 cm M-MODE Aortic Annulus Diameter 2.6 cm LA Ao Ratio MM 1.3 MV E Point Septal Separation 0.9 cm DOPPLER AV Peak Velocity 177.0 cm/s LVOT Peak Velocity 108.0 cm/s AV Area Cont Eq vti 2.2 cm squared AV Area Cont Eq pk 1.9 cm squared MV Area PHT 3.5 cm squared Mitral E to A Ratio 0.9 MV E' Velocity 43.5 cm/s Mitral E to MV E' Ratio 8.3 Mitral E to LV E' Lateral Ratio 8.8 Mitral E to LV E' Septal Ratio 7.9 TR Peak Velocity 176.1 cm/s TR Peak Gradient 12.4 mmHg TR Mean Velocity 145.1 cm/s TR Mean Gradient 8.7 mmHg TR Velocity Time Integral 42.0 cm TV Peak E Velocity 64.0 cm/s Right Atrial Pressure 3.0 mmHg Pulmonary Artery Systolic Pressu 15.4 mmHg PV Peak Velocity 86.7 cm/s RV Acceleration Time 0.2 s RV Ejection Time 0.4 s RV AcT/ET 0.5 FINDINGS Left Ventricle Normal left ventricular size and systolic function, EF 59 %. No regional wall motion abnormalities. Right Ventricle The right ventricle is normal in size and function. Right Atrium The right atrium is normal in size. Left Atrium The left atrium is normal in size. Mitral Valve No gross abnormalities noted Aortic Valve Thickened aortic valve. Tricuspid Valve Trace tricuspid valve regurgitation. Pulmonic Valve Trace pulmonary valve regurgitation. Pericardium Normal pericardium without effusion. Aorta Normal ascending aorta dimension. CONCLUSIONS Normal left ventricular size and systolic function, EF 59 %. No regional wall motion abnormalities. Thickened aortic valve. Trace pulmonary valve regurgitation. Trace tricuspid alve regurgitation. There is no pericardial effusion. Technically difficult study because of the poor ultrasonic window. Dr James Azar MD [facility] (Electronically Signed) Final Date: 12 June 2021 14:11 S
[2021-06-12] MEDS: diphenhydrAMINE 50 mg Capsule PO (23:38)
--- NOTE | 2021-06-12 23:45 | PC.NURSE ---
Patient states that she has difficulty sleeping at home. Patient states she either takes 2 Tylenol PM or 2 Benadryl at home to sleep. Patient states she cannot take ambien because it makes her mean and she states doesn't want to take anything addictive like Xanax. Patient states Melatonin doesn't work for her. Patient states she knows Tylenol is bad for her liver. Patient given PO Ativan x1 per Dr. Ashford order. Patient also given PRN Benadryl. Patient states that she still can't sleep. Patient states I'm going to ask the doctor if I can go home on something to help me sleep at home.
[2021-06-13] VITALS (7 sets, daily range): BP systolic 118–142; BP diastolic 62–84; PULSE 83–94; RESP 16–19; TEMP 36.6–36.7; O2SAT 96–100
--- NOTE | 2021-06-13 | XACV_ITS ---
Exam Room: 2 Ht: 160 cm Wt: 87 kg BSA: 2.00 m2 Gender: Female : 1960 Exam Priority: Routine Procedure(s): Procedure Description: Diagnostic procedure Procedure Description: Coronary Angiography Diagnostic Cath Status: Urgent Diagnostic Findings * No disease noted in the Left Main, Left Anterior Descending, Right, or Circumflex coronary arteries. * Coronary angiography shows right dominance. Conclusions 1. No disease noted in the Left Main, Left Anterior Descending, Right, or Circumflex coronary arteries. Recommendations * Continue current medical management and risk factor modification. Pressures Phase:Rest AO : 108 / 65 ( 81 ) @ 9:50:00 AM Clinical Evaluation EBL: 5mL-10mL Procedural Details Procedure Consent Obtained. Procedure started. Barbi Pierson RN, OLIVE PITTER was relieved by Em Chang RRT as monitoring person. Pre-Procedure Time Out. Identified patient by full name and date of as verbalized by the patient/guarantor. Does the consent match the physician's order: Yes. Accurate & Complete Informed Consent: Yes. Inpatient/Outpatient History & Physical on Chart: Yes. If H&P is completed, is and addenduem needed: No; If yes, is the addendum complete: N/A. Visualize and Verify Site with Patient/Guarantor: N/A. Relevant Radiology Images available: N/A. Pre-op teaching completed and patient verbalized understanding. The risks, benefits, and alternatives of sedation and/or procedure were discussed by physician. The patient agrees to continue. Procedure started. [facility] Clinical Fraility Score: 3: Managing Well. 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 Chest Pain Symptom Assessment: Atypical Angina. Correct patient, site and procedure confirmed by cath team. Current diagnosis: Chest Pain. PERRLA. 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 Lungs clear x 5 lobes. Physician arrived. Physician scrubbed in. Immediate Pre-Procedure Time Out. Correct Patient: Yes; Correct Procedure: Yes; Correct Site: Yes; Correct Patient Position: Yes; Correct Supplies: Yes; Dried Flammable Prep: Yes; Blood Products Available: N/A;. Baseline sample Acquired. HR: 82 BPM. right radial was prepped with chloroprep then draped in the usual sterile fashion. right groin was prepped with chloroprep then draped in the usual sterile fashion. Oxygen started at 2liters/min via nasal canula. Cardiovascular Instability: No. Lidocaine 1% infiltrated to the right radial. Equipment: 6F - Radial. Cardiac Cath Pack. [employer] Manifold Kit Model BT 2000. Heparinized Saline (2 units/mL), 1000 mL bag. Arterial access obtained. A 5 slovak Curtis catheter in over wire. Multiple views taken of right coronary artery. Catheter redirected to the LCA. Multiple views taken of left coronary artery. Catheter removed over the exchange wire. Physician scrubbed out. A TR Band was successful obtaining hemostatsis at the Right Radial artery insertion site. TR band placed. Hemostasis obtained. Post Procedure: Pulses reassessed and unchanged. PERRLA. 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 No VTE prophylaxis required. Medication's Wasted: Lidocaine 1% = 16 mL. Medication's Wasted: Nitro = 49.8 mg. Medication's Wasted: Heparin = 1000 units. Total IV fluids: 40 mL. Contrast type used: Visipaque 320 mgI/mL, 500 mL bottle. Post-op diagnosis: normal coronaries. Complications: none. Estimated blood loss: 5mL-10mL. Responsiveness - Normal response to verbal stimuli; alert and oriented, PERRLA. Airway - Unaffected, no intervention required; spontaneous ventilation. Circulation: W/N/L, pulses unchanged. Nausea/Vomiting: No. Procedure completed. Patient transferred by wheelchair to 1st floor. Access Site Site: Right Radial artery Sheath Size: 6 Fr Hemostasis Method: TR Band Hemostasis Success: Successful Procedure Medications Start: 11:46 AM Stop: 11:46 AM Medication: Versed Amount: 1 mg Route: I.V. Start: 11:46 AM Stop: 11:46 AM Medication: Fentanyl Amount: 50 mcg Route: I.V. Start: 11:48 AM Stop: 11:48 AM Medication: Nitrogylcerin Amount: 200 mcg Route: I.A. Start: 11:50 AM Stop: 11:50 AM Medication: Heparin Amount: 5000 units Route: I.V. Start: 11:50 AM Stop: 11:50 AM Medication: Versed Amount: 1 mg Route: I.V. I, the attending physician, have reviewed and verified all procedure medications. Yes, all medications given per verbal order History/Risk Factors Hypertension: Yes Dyslipidemia: No Peripheral Arterial Disease (PAD): No Myocardial Infarction ([place]): No Obesity: Yes Renal Disease: No Tobacco Use: Former Prior Interventions PCI: No CABG: No Valve Surgery: No Report Signatures Finalized by Steven Farah MD on 06/27/2021 07:13 PM
--- NOTE | 2021-06-13 00:21 | PC.NURSE ---
Addendum entered by Jeanette Curiel RN 06/13/21 00:26: Patient in SR 90s. Original Note: Cardizem drip was not running upon my arrival on shift.
[2021-06-13 03:28] LABS: Basophils % 0.4 %; Eosinophils # 0.1 10^3/uL (0.0-0.8); Eosinophils % 2.3 %; Hematocrit 29.7 % (37.0-47.0); Hemoglobin 9.9 g/dL (11.5-15.3); Lymphocytes # 2.1 10^3/uL (0.8-4.8); Lymphocytes % 35.9 %; Mean Corpuscular HGB Conc 33.3 g/dL (30.0-36.0); Mean Corpuscular Hemoglobin 34.9 pg (28.0-34.0); Mean Corpuscular Volume 104.6 fl (81-99); Mean Platelet Volume 10.8 fL (7.4-10.4); Monocytes # 0.5 10^3/uL (0.2-0.9); Monocytes % 9.1 %; Neutrophils # 2.96 10^3/uL (1.8-7.7); Neutrophils % 51.8 %; Nucleated Red Blood Cells # 0.1 /100WBC; Nucleated Red Blood Cells % 1.2 %; Platelet Count 207 10^3/cmm (130-400); Red Blood Count 2.84 10^6/uL (4.1-5.3); Red Cell Distribution Width 15.1 % (12.1-15.1); White Blood Count 5.7 10^3/uL (4.0-10.0)
[2021-06-13 03:56] LABS: Alanine Aminotransferase 7 U/L (0-33); Albumin Level 3.3 g/dL (3.5-5.2); Alkaline Phosphatase 114 IU/L (35-105); Anion Gap 15.1 (5-19); Aspartate Amino Transferase 24 U/L (0-32); Blood Urea Nitrogen 8 mg/dL (8-23); Carbon Dioxide 23 mmol/L (22-29); Chloride 102 mmol/L (98-107); Globulin 2.3 g/dL (1.3-4.6); Glomerular Filtration Rate 161.2 mL/min (90-130); Glucose 114 mg/dL (65-115); Magnesium 1.7 mg/dL (1.7-2.3); Osmolality Calculated 283 mOsm/kg (285-295); Phosphorus 1.5 mg/dL (2.5-4.5); Potassium 3.1 mmol/L (3.5-5.1); Sodium 137 mmol/L (136-145); Total Bilirubin 0.5 mg/dL (0.15-1.2); Total Protein 5.6 g/dL (6.6-8.7)
[2021-06-13 03:57] LABS: Creatinine Clr Calc Pharmacy 150.2041
[2021-06-13] MEDS: magnesium sulfate premix 2 GM/50 ML PIGGYBACK IV (08:10)
--- NOTE | 2021-06-13 08:57 | PC.CHAP ---
Pastoral Care Encounter/Spiritual Assessment Type of Contact [] Declined scleroscope tester visit [] Patient/Family/Request visit [] Outpatient visit [] Follow-up visit [] Physician referral [] Code/Alert [x] Routine visit [] Staff referral [] Actively dying [] Patient sleeping [] Family support [] [] Out of room [] Palliative care [] [] Receiving care in room [] Pre-surgical visit [] Trauma [] Long length of stay [] ICU visit [] Other: Relational/Emotional Strength [] Patient feels connected with others/family/visitors/staff [] Distress [] Loneliness/isolation [] Abandonment Spirituality of Patient [x] Person of Yamileth [] Attends Confucianism of their Yamileth [x] Believes in Prayer [x] Reads Bible or Orthodox materials [] There are Spiritual issues to be addressed Nurses Director Interventions [x] Prayer [x] Active listening [x] Non-anxious presence [x] Spiritual/emotional support [] Crisis/trauma care [] Spiritual counseling [] Bereavement support [] Provided bereavement packet [] Provided Bible/devotional materials [] Provided toy/stuffed animal, coloring book to patient or family member [] Provided Communion [] Anointing/[place] [] Salvation [x] Completed spiritual assessment [] Other: Impact on Illness or Injury [] Angry [] Fearful [] Anxious [] Often cries [] Exhaustion [] Unable to work [] Unable to attend church [] Unable to walk/stand [] Unable to read [] Unable to drive [] Unable to eat/drink [] Unable to sleep [] Unable to be with family [] Patient intubated [] Other: Summary Pt complained the nurses had just put in a new IV and it was hurting. Nurses Director went to nurses station and let them know so someone could come by and check it. Pt said she has no family (, children, parents, siblings). She has lived alone since 1992 when her parents . 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 She has property in [place] and also in [place] and is currently staying on her [place] property. She has recently moved here and plans to set up an off grid home and small self sustaining farm. She says she has been off grid most of her life so this is not particularly a tough challenge for her. She came to [place] because she was tired of shoveling snow . Pt is an avid reba and said while in [place] she lived mainly off of wild game and vegetables she grew in her garden. Pt says she is a person of yamileth but has not attended roman catholic since she was often on the road. With her current living arrangement she comes to town only about once per month and her outside contact is very limited. Time spent with patient 20 m
[2021-06-13] MEDS: famotidine 20 mg Tablet PO (09:47)
[2021-06-13] MEDS: phosphorus 250 mg Tablet PO (09:47)
[2021-06-13] MEDS: aspirin 81 mg EC Tablet PO (09:47)
--- NOTE | 2021-06-13 10:22 | P.CONIM_ITS ---
Providers/Reason For Consult Consulting Physician/Specialty*: Cardiology Reason for Consult*: Recurrent chest pain Requesting Physician: Dr. Bird Attending Physician: Rian Chaves MD History of Present Illness History of Present Illness Denia Espino is a 61 year old female past medical history significant for hypertension hyperlipidemia recent paroxysmal A. fib and recent intentional weight loss of 100 pounds in last 1 year trying to lose 50 more pounds on a highly restricted 500 caloric diet with 1 gallon of daily water presented with worsening of chest pressure feel like a tight band across the chest and the back going on for the last few weeks off-and-on basis. Last night she went into A. fib with RVR for a brief period of time and got out of it it appeared to be paroxysmal. She denies any prior history of A. fib. She also underwent stress test which showed small area of mild ischemia in the circumflex territory she was about to be discharged today however she started having chest pain and tightness around the chest, she does not feel to be safe. I been asked to assess the patient. I saw the patient she does give me history of chest pressure tightness around her chest going on for the last few weeks she does not know it is her anxiety or she pulled her muscle but she does have exertional component to it. This morning she had the same feeling. Since she has mildly abnormal stress test and other eugene I would not have perform angiogram but due to recurrent symptoms at this point we will proceed with invasive strategy. I will recommend left heart cath Review of Systems Const: Denies: fever(s), chills, fatigue, malaise or diaphoresis Eyes: Denies: change in vision or blurry vision ENMT: Denies: throat pain or nasal congestion Card: Reports: chest pain and palpitations; Denies: lightheadedness or syncope Resp: Denies: dyspnea, productive cough, non-productive cough or wheezing GI: Denies: abdominal pain, nausea, vomiting, constipation, hematochezia or melena : Denies: flank pain, dysuria or urinary frequency Musc: Denies: neck pain or back pain Skin/Breast: Denies: rash or pruritus Neuro: Denies: headache(s), numbness in extremities, dizziness or vertigo Psych: Denies: anxiety Mello/Lymph: Denies: enlarged lymph nodes Medications/Allergies Home Medications Medication Instructions Recorded Confirmed Last Taken Type No Known Home Medications 06/11/21 06/11/21 Unknown History Allergies Allergy/AdvReac Type Severity Reaction Status Date / Time acetaminophen [From Vicodin] Allergy ADR-Vomitin Verified 11/11/20 10:26 g cephalexin [From Keflex] Allergy ADR-Vomitin Verified 11/11/20 10:26 g hydrocodone [From Vicodin] Allergy ADR-Vomitin Verified 11/11/20 10:26 g propoxyphene [From Darvon] Allergy ADR-Vomitin Verified 11/11/20 10:26 g zolpidem [From Ambien] Allergy ADR-Agitate Verified 06/13/21 06:50 d Current Medications Generic Name Dose Route Start Last Admin Trade Name Freq PRN Reason Stop Dose Admin Aspirin 81 mg 06/12/21 09:00 06/13/21 09:47 Aspirin 81 Mg Ec Tablet PO 81 mg DAILY JOSEF Administration Atorvastatin Calcium 40 mg 06/11/21 21:00 06/12/21 20:21 Atorvastatin 40 Mg Tablet PO 40 mg BEDTIME JOSEF Administration Diphenhydramine HCl 50 mg 06/11/21 23:05 06/12/21 23:38 Diphenhydramine 50 Mg Capsule PO 50 mg BEDTIME PRN Administration INSOMNIA Famotidine 20 mg 06/11/21 20:42 06/13/21 09:47 Famotidine 20 Mg Tablet PO 20 mg BID JOSEF Administration Diltiazem HCl 125 mg/ Sodium 125 mls @ 0 mls/hr 06/12/21 04:30 06/12/21 05:22 Chloride IV 10 mg/hr .Q0M JOSEF 10 mls/hr Titration Protocol Per Protocol Ondansetron HCl 4 mg 06/12/21 07:37 06/12/21 08:15 Ondansetron 2 Mg/Ml Sdv 2 Ml IVP 4 mg Q2M PRN Administration NAUSEA Potassium Phosphate 250 mg 06/12/21 09:00 06/13/21 09:47 Phosphorus 250 Mg Tablet PO 250 mg BID JOSEF Administration PFSH Acute PFSH: Medical History (Updated 06/12/21 @ 15:55 by Rian Chaves MD) History of hypertension Morbid obesity Surgical History (Updated 06/11/21 @ 17:43 by Rian Chaves MD) History of right hip replacement Status post splenectomy Family History (Updated 06/11/21 @ 17:43 by Rian Chaves MD) Mother CAD (coronary artery disease) Father Stroke Social History (Updated 06/11/21 @ 17:44 by Rian Chaves MD) Smoking and tobacco status: never smoked Alcohol intake: never Substance/Drug Use: never Vitals/I&O/Wt Last Vital Signs Temp 98.1 F 06/13/21 08:00 Pulse 89 06/13/21 08:00 Resp 16 06/13/21 08:00 BP 142/84 06/13/21 08:00 Pulse Ox 96 06/13/21 08:00 06/12/21 06/13/21 06/13/21 22:59 06:59 14:59 Intake Total 240 / 720 600 / 1320 Output Total / Balance 238 / 718 600 / 1318 Weight last 48 hrs Weight 191 lb Weight 230 lb 11.2 oz Weight 209 lb Physical Exam Narrative: EXAM NARRATIVE: GENERAL: Patient is alert, awake and oriented x3. NECK: No jugular vein distension. HEENT: No cyanosis. No icterus. No pallor. HEART: Regular S1 and S2. No murmur, rub or gallop. LUNGS: Clear to auscultate bilaterally. ABDOMEN: Soft, nontender and nondistended. Positive bowel sounds. No guarding, rebound or tenderness. CENTRAL NERVOUS SYSTEM: Grossly nonfocal. EXTREMITIES: Lower extremities without edema bilaterally. A&P Assessment and plan (1) Chest pain: As defined above for recurrent chest pain abdominal stress test which could be falsely negative we will proceed with left heart cath Status: Acute Qualifiers: Chest pain type: unspecified Qualified Code(s): R07.9 - Chest pain, unspecified (2) Atrial fibrillation with RVR: Paroxysmal A. fib may benefit with beta-leah. Since she denies any prior episodes [id number] score appears to be less than 2. Full dose aspirin recommended. Beta-leah in the form of metoprolol succinate 12.5 mg daily. In case of worsening of palpitation pounding racing of the heart she should let us know. She will be following up with cardiology as an outpatient. Status: Acute (3) Hypomagnesemia: Getting replenished Status: Acute (4) Hypokalemia: Getting replenish Status: Acute Consult Attestations Medical Necessity Statement: Patient require continuation hospitalization for above defined care Coding Level of Care Code Acute Postpartum Nurse for Chg Fwd Diagnoses Chest pain R07.9 Chest pain type: unspecified Atrial fibrillation with RVR I48.91 Hypomagnesemia E83.42 Hypokalemia E87.6
--- NOTE | 2021-06-13 10:28 | PC.NURSE ---
At 0830 patient c/o pain at site of left ACF IV site. Site appears reddened and leaking. Site discontinued. ICU contacted for assistance to place new IV. EVS MANAGER at bedside attempting IV insertion with US.
--- NOTE | 2021-06-13 10:52 | PC.NURSE ---
IV insertion Ultra sound guided. 3 attempts. Right upper arm, 18 gauge. Pt tolerated very well.
--- NOTE | 2021-06-13 11:16 | PC.NUTR ---
Received consult for wt loss and electolytes. Discovered Pt eats 500 kcals /day and drinks 1 gallon of water/day. Discussed cutting back on water (MD was there who mentioned danger of Hyponatremia), adding PowerAide, not being afraid of CHO's, transitioning to more normal/healthful/Mediterranean style eating, eating 3 meals or times a day, upping kcals to 1326-3717/day. Pt very interested and very receptive. Left materials with her and she asked for some time tomorrow morning.
--- NOTE | 2021-06-13 12:00 | W.PM.OPSUD ---
Surgery/Procedure H&P Update DATE OF PROCEDURE: June 13, 2021 DATE H&P PERFORMED: 06/13/21 H&P UPDATE INFORMATION: I have reviewed H&P completed within last 30 days and I have examined patient prior to procedure PREOP DIAGNOSIS: Recurrent chest pain/abnormal stress test PATIENT REASSESSED PRIOR TO SEDATION, WITH NO CHANGE NOTED: Yes PHYSICAL EXAM: alert, oriented x 3 and clear to auscultation bilaterally AIRWAY EVAL/ANESTHESIA PLAN: ASA II and Risks, benefits & alternatives of sedation and/or procedure discussed
--- NOTE | 2021-06-13 13:58 | P.DS_ITS ---
Discharge Providers Date of Admission: 06/12/21 18:00 Date of Discharge: June 13, 2021 Attending Provider at Admission: Rian Chaves MD Attending Provider at Discharge: Rian Chaves MD Diagnoses at Discharge Discharge Diagnosis (1) Chest pain: Status: Acute Qualifiers: Chest pain type: unspecified Qualified Code(s): R07.9 - Chest pain, unspecified (2) Atrial fibrillation with RVR: Status: Acute (3) Hypomagnesemia: Status: Acute (4) Hypokalemia: Status: Acute Reason for Visit Reason for Visit: CP Hospital Course Hospital Course Denia Espino is a 61 year old female with a past medical history of morbid obesity, hypertension, who presents to [facility] for chest pain. For her chest pain, no significant ST-T wave changes on EKG, no significant troponin elevation, she underwent cardiac stress testing, which showed concerns for ischemia in the left circumflex territory, as she continued to have complaints of chest heaviness, she underwent coronary angiography which did not show any significant obstructive CAD. Patient had an episode of atrial fibrillation with RVR during the hospitalization, was hypomagnesemia, hypokalemic, hypophosphatemic secondary to dieting. Which resolved with Cardizem, she converted to normal sinus rhythm and remained in normal sinus rhythm during hospitalization. No rate or rhythm control medication is required on discharge. In terms of her [id number] score it is 1, intermediate, does have discharged on aspirin 81 mg daily She carries a history of hypertension at home, she lost over 100 pounds, remained normotensive during this hospitalization, no antihypertensive medications required Did have complaints of back pain during hospitalization, will discharge on short supply of cyclobenzaprine to be used as needed for back pain, do not drive or operate heavy machinery when taking medication. Was found to be anemic during hospitalization, hemoglobin as low as 9.9, no hemodynamic compromise, no complaints of bloody or black stools, MCV elevated, discharged on a multivitamin, follow-up with primary care provider as outpatient for consideration of colonoscopy Was found to be hypokalemic, hypomagnesemic, hypophosphatemic secondary to dieting during hospitalization, requiring IV supplementation, discharged on short-term supply of p.o. electrolyte replacement. 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, follow-up with vascular surgery as outpatient Physical Exam Const: COMMON NORMALS: no acute distress and patient oriented x3 Resp: COMMON NORMALS: normal respiratory effort, No retractions, No use of accessory muscles and clear to auscultation bilaterally AUSCULTATION: clear to auscultation bilaterally Cardio: COMMON NORMALS: regular rate, regular rhythm, S1 normal heart sound present and S2 normal heart sound present RATE: regular rate RHYTHM: regular rhythm HEART SOUNDS: S1 normal heart sound present and S2 normal heart sound present GI: COMMON NORMALS: Normal to inspection, nondistended, normoactive bowel sounds present, Soft to palpation and non-tender PALPATION: Yes Soft to palpation Extremity: COMMON NORMALS: no pedal edema Neuro: COMMON NORMALS: patient oriented x3 Psych: COMMON NORMALS: mental status grossly normal Discharge Data Data Completed and Pending: Completed Studies During Hospitalization Category Date Time Status CT abdomen pelvis wo/w [id number] Routin e Cat Scan 06/12/21 15:[address] angio chest 71 275 Urgent Cat Scan 06/11/21 15:[address] MIBI [Sestamibi Stress Test Reque st Exams 06/12/21 07:34 Completed ] Routine XR chest 1V guevara ble [id number] Stat Exams 06/11/21 13:45 Completed NM grayson perf SPECT r/s* [id number] Routin e Nuc Med 06/12/21 20:42 Completed CV. echo complete * [id number] Routine Ultrasound 06/12/21 20:42 Completed US abdomen comple te* [id number] Routine Ultrasound 06/12/21 20:42 Completed Pending at discharge Category Date Time Status MANAGER ASSESSMENT request for service Routin e Exams 06/13/21 Taken Complete Blood Co unt w/Auto AM LABS Lab 06/14/21 04:00 Ordered Comprehensive Met abolic Panel AM LA BS Lab 06/14/21 04:00 Ordered Magnesium AM LABS Lab 06/14/21 04:00 Ordered Phosphorus AM LAB S Lab 06/14/21 04:00 Ordered Labs from last 24 hours 06/13/21 06/13/21 06/12/21 02:40 02:40 15:50 WBC 5.7 RBC 2.84 L Hgb 9.9 L Hct 29.7 L MCV 104.6 H MCH 34.9 H MCHC 33.3 RDW 15.1 Plt Count 207 MPV 10.8 H Neut % (Auto) 51.8 Lymph % (Auto) 35.9 [place] % (Auto) 9.1 Eos % (Auto) 2.3 Baso % (Auto) 0.4 Neut # (Auto) 2.96 Lymph # (Auto) 2.1 [place] # (Auto) 0.5 Eos # (Auto) 0.1 Baso # (Auto) 0.0 Nucleated RBC % (a uto) 1.2 Nucleated RBCs # 0.1 Sodium 137 135 L Potassium 3.1 L 3.8 Chloride 102 98 Carbon Dioxide 23 23 Anion Gap 15.1 17.8 BUN 8 8 Creatinine 0.4 L 0.4 L GFR Calculation 161.2 H 161.2 H Glucose 114 115 Calculated Osmolal ity 283 L 279 L Calcium 9.0 9.4 Phosphorus 1.5 L 1.1 L D Magnesium 1.7 2.0 Total Bilirubin 0.5 AST 24 ALT 7 Alkaline Phosphata se 114 H Total Protein 5.6 L Albumin 3.3 L Globulin 2.3 Vitals: Last Vital Signs Temp 98.1 F 06/13/21 08:00 Pulse 89 06/13/21 08:00 Resp 16 06/13/21 08:00 BP 142/84 06/13/21 08:00 Pulse Ox 96 06/13/21 08:00 Discharge Plan Discharge Patient Disposition: Home Condition: Stable Prescriptions: New atorvastatin 40 mg Tablet 40 mg PO BEDTIME 30 Days Qty: 30 RF: 0 aspirin 81 mg Tablet,Delayed Release (Dr/Ec) 81 mg PO DAILY 30 Days Qty: 30 RF: 0 Phospha 250 Neutral 250 mg Tablet 250 mg PO BID 7 Days Qty: 14 RF: 0 Klor-Con M20 20 mEq tablet,ER particles/crystals 20 meq PO DAILY 7 Days Qty: 7 RF: 0 Magtab 84 mg tablet extended release 84 mg PO DAILY 7 Days Qty: 7 RF: 0 cyclobenzaprine 5 mg tablet 5 mg PO BID PRN (Reason: muscle spasm) 7 Days Qty: 14 RF: 0 Discharge Orders: Discharge Order (Routine); Ordered 06/13/21 Ordered By: Rian Chaves Other Ambulatory Orders: MCT/Event Monitor 30 Days (Routine) Timeframe: 1 Day Facility: [facility] - Location: Radiology Ordered By: Rian Chaevs Referrals: Shruthi Lizarraga RN [Registered Nurse] - Steven Farah MD [Physician] - 1 month Discharge Diet: Cardiac Discharge Activity: Resume usual activity Patient Instructions: Magnesium (By mouth), Heart Catheterization (DC), Opioid Safety, Post Angiogram Home Care Instructions Activity Restrictions/Additional Instructions: - Follow-up with cardiology in 1 month -Follow-up with primary care provider next week -You are anemic, follow-up with primary care provider for colonoscopy -Follow-up with primary care provider for mammography -For your fatty liver disease discussed with primary care for consideration of metformin -Please use cyclobenzaprine as needed for back pain -Advice to eat 3 meals a day, equaling 1600 gera/day -Take aspirin, statin -If you have recurrent chest pain or palpitations go to emergency room -If you have strokelike symptoms, call 911 Discharge Attestations Time Spent in Discharge Care*: less than 30 min Quality Metrics Clinical Quality Measures During this hospital stay, did patient experience: None Coding Level of Care Code Acute Chg FW DC note Exam Detailed Diagnoses Chest pain R07.9 Chest pain type: unspecified Atrial fibrillation with RVR I48.91 Hypomagnesemia E83.42 Hypokalemia E87.6
--- NOTE | 2021-06-13 16:03 | P.PN_ITS ---
Subjective Subjective: Interval history: Patient was seen this morning, after cardiac catheterization, normal coronary arteries, was going to be discharged this afternoon, but she tells nursing staff that she feels unwell, she feels drunk, last alcohol drink was over 5 days ago, she does not feel that she can go home today, she wants to go home tomorrow Vitals/I&O/Wt Last Vital Signs Temp 98.1 F 06/13/21 08:00 Pulse 94 06/13/21 15:38 Resp 16 06/13/21 15:38 BP 118/75 06/13/21 15:38 Pulse Ox 96 06/13/21 08:00 06/13/21 06/13/21 06/13/21 06:59 14:59 22:59 Intake Total 600 / 1320 240 / 240 Balance 600 / 1318 240 / 240 Weight last 48 hrs Weight 86.636 kg Weight 104.644 kg Physical Exam Const: COMMON NORMALS: no acute distress and patient oriented x3 Resp: COMMON NORMALS: normal respiratory effort, No retractions, No use of accessory muscles and clear to auscultation bilaterally AUSCULTATION: clear to auscultation bilaterally Cardio: COMMON NORMALS: regular rate, regular rhythm, S1 normal heart sound present and S2 normal heart sound present RATE: regular rate RHYTHM: regular rhythm HEART SOUNDS: S1 normal heart sound present and S2 normal heart sound present GI: COMMON NORMALS: Normal to inspection, nondistended, normoactive bowel sounds present, Soft to palpation, non-tender and No hepatosplenomegaly present PALPATION: Yes Soft to palpation and Yes No hepatosplenomegaly present Extremity: COMMON NORMALS: no pedal edema Neuro: COMMON NORMALS: patient oriented x3 Psych: COMMON NORMALS: mental status grossly normal Data : 06/13/21 02:40 06/13/21 02:40 A&P Assessment and plan (1) Chest pain: - Admit to cardiac stepdown unit -Positive stress test in left circumflex territory underwent coronary angiogram which was unremarkable -Aspirin, statin -Nitro as needed for chest pain -Patient tells me that she wants to be DNR/DNI, as her father suffered a stroke and laid in the hospital for 6 weeks and she does not want to have that happen to her Hypokalemia, replace Hypophosphatemia replace Hypomagnesemia replace A. fib with RVR, converted to normal sinus rhythm, continue aspirin Pulm hypertension continue monitor Lesion left hepatic lobe, ultrasound pending Breast lesion, needs outpatient follow-up Status: Acute Qualifiers: Chest pain type: unspecified Qualified Code(s): R07.9 - Chest pain, unspecified (2) Atrial fibrillation with RVR: Status: Acute (3) Hypomagnesemia: Status: Acute (4) Hypokalemia: Status: Acute Attestations Medical Necessity Statement*: Patient requires hospitalization for chest pain Coding Level of Care Code Acute Co Chairman for [facility] Fwd Diagnoses Chest pain R07.9 Chest pain type: unspecified Atrial fibrillation with RVR I48.91 Hypomagnesemia E83.42 Hypokalemia E87.6
--- NOTE | 2021-06-13 16:16 | PC.NURSE ---
Patient reports feeling to sleepy to drive herself home. Patient states i feel drunk from the medicines . and I'm too sleepy Hospitalist notified. Contacted case management.
--- NOTE | 2021-06-13 16:24 | PC.NURSE ---
Patient was offered an uber ride home. She declined stating its 35 miles to my home. Then I have to pay for a ride back here to get my car. Patient stated again that she is too sleepy to go home alone. Machine Grainer and physician updated. We agreed to reassess patient's status after dinner.
--- NOTE | 2021-06-13 18:00 | PC.NURSE ---
At dinner, assisted patient with tray set up. Patient states she still feels too sleepy to drive .
--- NOTE | 2021-06-13 18:55 | PC.NURSE ---
Dr. Chaves notified that all of patients medications are on hold.
[2021-06-13] MEDS: atorvastatin 40 mg Tablet PO (19:22)
[2021-06-13] MEDS: acetaminophen 325 mg Tablet 650 MG PO (21:01)
[2021-06-14 03:54] VITALS: BP 108/64; PULSE 90; RESP 16; TEMP 36.6; O2SAT 96
[2021-06-14 03:54] LABS: Basophils % 0.2 %; Eosinophils # 0.2 10^3/uL (0.0-0.8); Hematocrit 29.2 % (37.0-47.0); Hemoglobin 9.7 g/dL (11.5-15.3); Lymphocytes # 1.7 10^3/uL (0.8-4.8); Lymphocytes % 37.2 %; Mean Corpuscular HGB Conc 33.2 g/dL (30.0-36.0); Mean Corpuscular Hemoglobin 34.6 pg (28.0-34.0); Mean Corpuscular Volume 104.3 fl (81-99); Mean Platelet Volume 10.5 fL (7.4-10.4); Monocytes # 0.3 10^3/uL (0.2-0.9); Monocytes % 6.9 %; Neutrophils # 2.31 10^3/uL (1.8-7.7); Nucleated Red Blood Cells % 0.9 %; Platelet Count 211 10^3/cmm (130-400); Red Cell Distribution Width 15.1 % (12.1-15.1); White Blood Count 4.5 10^3/uL (4.0-10.0)
[2021-06-14 04:06] VITALS: PULSE 95
[2021-06-14 04:14] LABS: Alanine Aminotransferase 10 U/L (0-33); Albumin Level 3.2 g/dL (3.5-5.2); Alkaline Phosphatase 104 IU/L (35-105); Anion Gap 13.4 (5-19); Aspartate Amino Transferase 35 U/L (0-32); Blood Urea Nitrogen 13 mg/dL (8-23); Calcium 8.7 mg/dL (8.5-10.5); Carbon Dioxide 27 mmol/L (22-29); Chloride 103 mmol/L (98-107); Globulin 1.9 g/dL (1.3-4.6); Glomerular Filtration Rate 161.2 mL/min (90-130); Glucose 110 mg/dL (65-115); Magnesium 1.9 mg/dL (1.7-2.3); Osmolality Calculated 291 mOsm/kg (285-295); Potassium 3.4 mmol/L (3.5-5.1); Sodium 140 mmol/L (136-145); Total Bilirubin 0.3 mg/dL (0.15-1.2); Total Protein 5.1 g/dL (6.6-8.7)
[2021-06-14 04:16] LABS: Creatinine Clr Calc Pharmacy 150.2041
[2021-06-14] MEDS: phosphorus 250 mg Tablet PO (08:42)
[2021-06-14] MEDS: potassium chloride ER 20 mEq Tablet 40 MEQ PO (08:42)
[2021-06-14] MEDS: aspirin 81 mg EC Tablet PO (08:43)
[2021-06-14] MEDS: famotidine 20 mg Tablet PO (08:43)
[2021-06-14 10:16] VITALS: BP 134/84; PULSE 75; RESP 12; TEMP 37; O2SAT 100
[2021-06-14 10:35] VITALS: BP 134/84; PULSE 75; RESP 12; TEMP 37; O2SAT 100
--- NOTE | 2021-06-14 10:36 | PC.NURSE ---
Patient education provided, no questions or concerns. Post angiogram education provided. Follow up appointments were arranged. VS stable upon departure.
== END 2021-06-14 09:30 | disposition home or self-care (01) | DRG 287 ==
LOC: ER 20:22 → MEDSURG 20:23 → CSU 06-12 15:27
PROVIDERS: Internal Medicine Cardiovascular Disease; Admitting Provider Family Medicine; Emergency Provider Family Medicine; Visit Provider Family Medicine
PROC: B211YZZ Fluoroscopy of Multiple Coronary Arteries using Other Contrast (ICD-10-PCS; principal; 2021-06-13 11:00)
DX: R07.9 Chest pain, unspecified (principal); E83.42 Hypomagnesemia; I10 Essential (primary) hypertension; E66.01 Morbid (severe) obesity due to excess calories; Z68.33 Body mass index [BMI] 33.0-33.9, adult; E87.6 Hypokalemia; E83.39 Other disorders of phosphorus metabolism; D64.9 Anemia, unspecified; K76.0 Fatty (change of) liver, not elsewhere classified; N63.0 Unspecified lump in unspecified breast; I72.2 Aneurysm of renal artery; Z66 Do not resuscitate; E78.5 Hyperlipidemia, unspecified; I48.0 Paroxysmal atrial fibrillation; J98.4 Other disorders of lung; Z87.891 Personal history of nicotine dependence
CPT/HCPCS: 36415; 71045; 71275; 74178; 76700; 78452; 80048; 80053; 80061; 82977; 83036; 83615; 83735; 83880; 84100; 84145; 84443; 84450; 84460; 84484; 85025; 85651; 93005; 93017; 93306; 93454; 99285; A9500; C1769; C1887; C1894; G0378; J1644; J2250; J2405; J2785; J3010; J3475; J3490; J7040; Q0163; Q9967

== ENCOUNTER 2021-10-10 18:24 | Emergency (ER) | payer MEDICAID, SELFPAY ==
[2021-10-10 18:32] VITALS: BP 155/91; PULSE 107; RESP 18; TEMP 37; O2SAT 96; BMI 36.3
--- NOTE | 2021-10-10 18:37 | W.ED.ANIMALB ---
HPI - Animal Bite General: Chief Complaint: Animal Bite Stated Complaint: Tick bite needs looked at Time Seen by Provider: 10/10/21 18:37 History of Present Illness: 61-year-old female comes in today for malaise and a tick bite to the right breast. Patient reports for the last 3 to 4 days she has felt unwell. Patient reports some increasing redness to a tick bite that occurred about 1 week ago. Patient appears nontoxic. Patient appears in no pain. Associated symptoms: Deny fever(s) Review of Systems General: Reports: 10 or more systems reviewed and unremarkable except in HPI and below Const: Reports: fatigue and malaise; Denies: fever(s) Card: Denies: chest pain Resp: Denies: dyspnea GI: Reports: nausea : Denies: difficulty voiding Skin/Breast: Reports: pruritus and new lesions PFSH ED PFSH: Medical History History of hypertension Morbid obesity Surgical History History of right hip replacement Status post splenectomy Family History Mother CAD (coronary artery disease) Father Stroke Social History Smoking and tobacco status: never smoked Alcohol intake: never Physical Exam Const: COMMON NORMALS: alert HENMT: COMMON NORMALS: normocephalic HEAD & SCALP: normocephalic Neck/C-Spine: COMMON NORMALS: full ROM and no lymphadenopathy Resp: COMMON NORMALS: normal respiratory effort Cardio: COMMON NORMALS: regular rate RATE: regular rate Extremity: COMMON NORMALS: normal to inspection Neuro: SENSORIUM/ORIENTATION: Yes alert Skin: LESIONS: lesion noted (Small 5 mm erythematous area to the areola right breast) Course Vital Signs: Vital signs: Vital Signs Temperature 98.6 F 10/10/21 18:32 Pulse Rate 107 H 10/10/21 18:32 Respiratory Rate 18 10/10/21 18:32 Blood Pressure 155/91 10/10/21 18:32 Pulse Oximetry 96 10/10/21 18:32 MDM - Animal Bite Medical Decision Making 61-year-old female comes in today for complaints of insect bite to the right breast. On exam the insect bite is superficial with only about 5 mm area of redness with no surrounding induration. Patient also made complaints of feeling poorly for the last 3 days. Respirations were even lungs were clear to auscultation. Skin was warm and dry. Differential diagnosis includes tickborne illness, dehydration, worried well. CBC and CMP noted some mild decrease in sodium of 132. Urinalysis did have some increased white blood cells although it was not a clean-catch. Tick panel was sent for review per laboratory. Patient will be started on doxycycline due to the exposure and risk of tickborne illness. Patient was encouraged to drink plenty of fluids try to avoid the heat of the day. And follow-up with primary care. Patient stated understanding and agreed to plan. Lab Data : 10/10/21 19:13 10/10/21 19: Laboratory Results WBC 8.9 10^3/uL (4.0-10.0) 10/10/21 19: RBC 4.06 10^6/uL (4.1-5.3) L 10/10/21 19:13 Hgb 13.8 g/dL (11.5-15.3) 10/10/21 19:13 Hct 40.4 % (37.0-47.0) 10/10/21 19:13 MCV 99.5 fl (81-99) H 10/10/21 19:13 MCH 34.0 pg (28.0-34.0) 10/10/21 19: MCHC 34.2 g/dL (30.0-36.0) 10/10/21 19:13 RDW 13.7 % (12.1-15.1) 10/10/21 19:13 Plt Count 221 10^3/cmm (130-400) 10/10/21 19:13 MPV 9.7 fL (7.4-10.4) 10/10/21 19:13 Neut % (Auto) 64.5 % 10/10/21 19:13 Lymph % (Auto) 28.4 % 10/10/21 19:13 [place] % (Auto) 5.6 % 10/10/21 19:13 Eos % (Auto) 0.9 % 10/10/21 19: Baso % (Auto) 0.3 % 05/17/22 19:13 Neut # (Auto) 5.76 10^3/uL (1.8-7.7) 10/10/21 19:13 Lymph # (Auto) 2.5 10^3/uL (0.8-4.8) 10/10/21 19:13 [place] # (Auto) 0.5 10^3/uL (0.2-0.9) 10/10/21 19:13 Eos # (Auto) 0.1 10^3/uL (0.0-0.8) 10/10/21 19:13 Baso # (Auto) 0.0 10^3/uL (0.0-0.1) 10/10/21 19:13 Nucleated RBC % (auto) 0 % 10/10/21 19:13 Nucleated RBCs # 0.0 /100WBC 10/10/21 19:13 Sodium 132 mmol/L (136-145) L 10/10/21 19:13 Potassium 3.9 mmol/L (3.5-5.1) 10/10/21 19:13 Chloride 94 mmol/L (98-107) L 10/10/21 19:13 Carbon Dioxide 26 mmol/L (22-29) 10/10/21 19:13 Anion Gap 15.9 (5-19) 10/10/21 19:13 BUN 23 mg/dL (8-23) 10/10/21 19:13 Creatinine 0.7 mg/dL (0.5-0.9) 10/10/21 19:13 GFR Calculation 84.5 mL/min (90-130) L 10/10/21 19:13 Glucose 115 mg/dL (65-115) 10/10/21 19:13 Calculated Osmolality 279 mOsm/kg (285-295) L 10/10/21 19:13 Calcium 10.6 mg/dL (8.5-10.5) H 10/10/21 19:13 Total Bilirubin 1.2 mg/dL (0.15-1.2) 10/10/21 19:13 AST 40 U/L (0-32) H 10/10/21 19:13 ALT 17 U/L (0-33) 10/10/21 19:13 Alkaline Phosphatase 79 IU/L (35-105) 10/10/21 19:13 Total Protein 7.9 g/dL (6.6-8.7) 10/10/21 19:13 Albumin 4.7 g/dL (3.5-5.2) 10/10/21 19:13 Globulin 3.2 g/dL (1.3-4.6) 10/10/21 19:13 Urine Color Yellow (Yellow) 10/10/21 19:37 Urine Appearance Sl hazy (CLEAR) 10/10/21 19:37 Urine pH 6 (5-7) 10/10/21 19:37 Ur Specific [place] 1.010 (1.005-1.030) 10/10/21 19:37 Urine Protein Neg (Negative) 10/10/21 19:37 Urine Glucose (UA) Norm (Normal) 10/10/21 19:37 Urine Ketones 1+ (Negative) H 10/10/21 19:37 Urine Blood 2+ (Negative) H 10/10/21 19:37 Urine Nitrate Negative (Negative) 10/10/21 19:37 Urine Bilirubin 1+ (Negative) H 10/10/21 19:37 Urine Urobilinogen Norm mg/dL (Negative) 10/10/21 19:37 Ur Leukocyte Esterase 2+ (Negative) H 10/10/21 19:37 Urine RBC 0-4 /hpf (0-2) H 10/10/21 19:37 Urine WBC 25-40 /hpf (0-5) H 10/10/21 19:37 Ur Squamous Epith Cells 0-4 /hpf (0-5) H 10/10/21 19:37 Amorphous Sediment Not Reportable 10/10/21 19:37 Urine Bacteria 2+ /hpf (NONE) H 10/10/21 19:37 Urine Mucus 1+ /hpf 10/10/21 19:37 Discharge Plan Discharge Patient Disposition: Home Clinical Impression: Malaise Tick bite of breast Qualifiers: Encounter type: initial encounter Laterality: right Qualified Code(s): S20.161A - Insect bite (nonvenomous) of breast, right breast, initial encounter Condition: Stable Prescriptions: New doxycycline monohydrate 100 mg capsule 100 mg PO BID 10 Days Qty: 20 0RF Discharge Orders: Discharge ED (Routine); Ordered 10/10/21 Ordered By: Anuel Yañez Discharge Diet: Usual diet Discharge Activity: Increase activity as tolerated Patient Instructions: Tick Bite (ED) Activity Restrictions/Additional Instructions: Take antibiotic as directed. 1 capsule twice a day for 10 days. Follow-up with primary care for persistence of symptoms. Return to ER for new concerns. Coding Level of Care Code ED Furnace Utility Operator for Louie Reyes Exam Detailed
[2021-10-10 19:18] LABS: Basophils % 0.3 %; Eosinophils # 0.1 10^3/uL (0.0-0.8); Eosinophils % 0.9 %; Hematocrit 40.4 % (37.0-47.0); Hemoglobin 13.8 g/dL (11.5-15.3); Lymphocytes # 2.5 10^3/uL (0.8-4.8); Lymphocytes % 28.4 %; Mean Corpuscular HGB Conc 34.2 g/dL (30.0-36.0); Mean Corpuscular Volume 99.5 fl (81-99); Mean Platelet Volume 9.7 fL (7.4-10.4); Monocytes # 0.5 10^3/uL (0.2-0.9); Monocytes % 5.6 %; Neutrophils # 5.76 10^3/uL (1.8-7.7); Neutrophils % 64.5 %; Nucleated Red Blood Cells % 0 %; Platelet Count 221 10^3/cmm (130-400); Red Blood Count 4.06 10^6/uL (4.1-5.3); Red Cell Distribution Width 13.7 % (12.1-15.1); White Blood Count 8.9 10^3/uL (4.0-10.0)
[2021-10-10 19:41] LABS: Alanine Aminotransferase 17 U/L (0-33); Albumin Level 4.7 g/dL (3.5-5.2); Alkaline Phosphatase 79 IU/L (35-105); Anion Gap 15.9 (5-19); Aspartate Amino Transferase 40 U/L (0-32); Blood Urea Nitrogen 23 mg/dL (8-23); Calcium 10.6 mg/dL (8.5-10.5); Carbon Dioxide 26 mmol/L (22-29); Chloride 94 mmol/L (98-107); Globulin 3.2 g/dL (1.3-4.6); Glomerular Filtration Rate 84.5 mL/min (90-130); Glucose 115 mg/dL (65-115); Osmolality Calculated 279 mOsm/kg (285-295); Potassium 3.9 mmol/L (3.5-5.1); Sodium 132 mmol/L (136-145); Total Bilirubin 1.2 mg/dL (0.15-1.2); Total Protein 7.9 g/dL (6.6-8.7)
[2021-10-10 20:01] LABS: Leukocyte Esterase Urine 2+ (Negative); Urine Appearance SL Hazy (CLEAR); Urine Color Yellow (Yellow); pH Urine 6 (5-7)
[2021-10-10 20:02] LABS: Add Urine Microscopic? YES; Bilirubin Urine 1+ (Negative); Blood Urine 2+ (Negative); Glucose Urine UA Norm (Normal); Ketones Urine 1+ (Negative); Nitrate Urine Negative (Negative); Protein Urine Neg (Negative); Urobilinogen Urine Norm (Negative)
[2021-10-10 20:06] LABS: Add Urine Culture? Yes; Bacteria Urine 2+ /hpf; Mucus Urine 1+ /hpf; RBC Urine 0-4 /hpf (0-2); Squamous Epithelial Cell Urine 0-4 /hpf (0-5); WBC Urine 25-40 /hpf (0-5)
[2021-10-10] MEDS: doxycycline 100 mg Tablet PO (20:17)
== END 2021-10-10 20:23 | disposition home or self-care (01) ==
PROVIDERS: Emergency Provider Nurse Practitioner Family
DX: S20.161A Insect bite (nonvenomous) of breast, right breast, initial encounter (principal); W57.XXXA Bitten or stung by nonvenomous insect and other nonvenomous arthropods, initial encounter; R53.81 Other malaise; I10 Essential (primary) hypertension
CPT/HCPCS: 80053; 81001; 85025; 87077; 87086; 87186; 99283

== ENCOUNTER 2021-12-12 09:17 | Emergency (ER) | payer MEDICAID, SELFPAY ==
[2021-12-12 09:34] VITALS: BP 161/82; PULSE 109; RESP 19; TEMP 37; O2SAT 97; BMI 34.5
--- NOTE | 2021-12-12 09:38 | XR_ITS ---
WS: [id number] XR lumbar spine 2-3V* [id number] REASON FOR EXAM: fall/pain FINDINGS: Mild rotatory scoliosis convex left. Mild straightening of the normal lordosis. No significant compression deformity or other focal lesion of the lumbar vertebrae. Severe narrowing of the L4-L5 disc space, with an plate sclerosis and osteophyte formation, and moder ate narrowing of the L5-S1 disc space. No significant listhesis. Degenerative facet joint changes at L4-L5 and L5-S1. Previously defined right renal artery aneurysm. XR/XR lumbar spine 2-3V* [id number] IMPRESSION: No acute abnormality identified. Degenerative spondylosis.
--- NOTE | 2021-12-12 09:38 | XR_ITS ---
WS: [id number] XR sacrum coccyx min 2V [id number] REASON FOR EXAM: fall/pain FINDINGS: No fracture or focal bone lesion of the sacrum. No fracture of the coccyx. There is separation of the 2 most distal coccygeal segments from the remai nder of the coccyx. This may be a chronic finding however cannot exclude this being a manifestation o f acute injury. Clinical correlation to be made. XR/XR sacrum coccyx min 2V [id number] IMPRESSION: Coccyx abnormality which may represent an acute injury.
--- NOTE | 2021-12-12 09:41 | W.ED.FALL ---
HPI - Fall General: Chief Complaint: Fall Stated Complaint: fall/ low back pain Time Seen by Provider: 12/12/21 09:18 Source: patient Mode of arrival: ambulatory History of Present Illness: 61-year-old female who stumbled and fell at home landed on her buttocks directly with no loss consciousness. This was 5 days ago she still has significant pain in the tailbone . Patient is also concerned about a prosthetic right hip arthroplasty. She is concerned she may have dislocated it. MD complaint: fall Onset (ago): day(s) (5) Fall from: standing Loss of consciousness: None Prolonged down time: no Context: tripped/slipped Location of injury: back and pelvis Associated symptoms-after fall: Reports difficulty walking; Denies abdominal pain, chest pain, confusion, headache(s), hematuria, lightheadedness, neck pain, numbness, short of breath, vertigo or weakness Review of Systems Const: Denies: fever(s), chills, body aches, change in appetite, fatigue or malaise Eyes: Denies: change in vision ENMT: Denies: throat pain, ear or mastoid pain, nasal discharge or nasal congestion Card: Denies: chest pain or lightheadedness Resp: Denies: dyspnea, productive cough or non-productive cough GI: Denies: abdominal pain or nausea : Denies: flank pain, difficulty voiding, dysuria, urinary frequency, urinary urgency or hematuria Musc: Reports: back pain (Coccyx) and joint pain; Denies: neck pain Skin/Breast: Denies: rash or pruritus Neuro: Reports: difficulty walking; Denies: headache(s), vertigo or confusion [facility] PFSH: Medical History History of hypertension Morbid obesity Surgical History History of right hip replacement Status post splenectomy Family History Mother CAD (coronary artery disease) Father Stroke Social History Smoking and tobacco status: never smoked Alcohol intake: never Physical Exam Const: GENERAL APPEARANCE: cooperative and comfortable ORIENTATION/CONSCIOUSNESS: Yes awake, Yes oriented to person, Yes oriented to place and Yes oriented to time HENMT: COMMON NORMALS: normocephalic, atraumatic and hearing grossly normal bilaterally HEAD & SCALP: normocephalic and atraumatic Neck/C-Spine: COMMON NORMALS: no JVD Resp: COMMON NORMALS: normal respiratory effort, No retractions, No use of accessory muscles and clear to auscultation bilaterally AUSCULTATION: clear to auscultation bilaterally Cardio: COMMON NORMALS: no JVD, regular rate, regular rhythm and No murmurs present (Cardio) RATE: regular rate RHYTHM: regular rhythm GI: COMMON NORMALS: Soft to palpation and No hepatosplenomegaly present AUSCULTATION: Yes normoactive bowel sounds PALPATION: Yes Soft to palpation, No Tenderness to palpation present (GI), No Guarding due to palpation present (GI) and Yes No hepatosplenomegaly present Back/Pelvis: COCCYX: Coccyx tenderness present Extremity: COMMON NORMALS: normal to inspection, capillary refill normal, no clubbing, cyanosis or edema, no calf tenderness and no pedal edema Neuro: SENSORIUM/ORIENTATION: Yes oriented to person, Yes oriented to place and Yes oriented to time Skin: COMMON NORMALS: no rashes or lesions noted GENERAL SKIN EXAM: no rashes or lesions noted Course Vital Signs: Vital signs: Vital Signs Temperature 98.6 F 12/12/21 09:34 Pulse Rate 109 H 12/12/21 09:34 Respiratory Rate 16 12/12/21 10:25 Blood Pressure 161/82 12/12/21 09:34 Pulse Oximetry 96 12/12/21 10:25 MDM - Fall Medical Decision Making Radiology read on the coccyx sacral x-ray questions a fracture given her degree of pain and believe it probably is acute. She has loss of disc space at L5-S1 but does not really have terrible a lot of pain at that level at this point and does not really have significant radicular pain. Tramadol to use as needed increase activity as tolerated and follow-up with her primary care if not improving Medical Records I reviewed the patient's medical records. Lab Data I reviewed the patient's lab results. Radiology Impressions Lumbar Spine X-Ray 12/12/21 09:38 IMPRESSION: No acute abnormality identified. Degenerative spondylosis. Sacrum and Coccyx X-Ray 12/12/21 09:38 IMPRESSION: Coccyx abnormality which may represent an acute injury. Discharge Plan Discharge Patient Disposition: Home Clinical Impression: Fall, Coccygeal fracture Condition: Stable Prescriptions: New tramadol 50 mg tablet 50 mg PO Q6H PRN (Reason: pain) Qty: 14 0RF Discharge Orders: Discharge ED (Routine); Ordered 12/12/21 Ordered By: Jitendra Rosas Patient Instructions: Opioid Safety Coding Level of Care Code ED Event Marketing Representative for Chg Fwd Exam Comprehensive
[2021-12-12 10:25] VITALS: RESP 16; O2SAT 96
[2021-12-12] MEDS: morphine 4 mg/mL SDV 1 mL IVP (10:25)
[2021-12-12] MEDS: orphenadrine 30 mg/mL Inj 2 mL 60 MG IVP (10:27)
== END 2021-12-12 11:02 | disposition home or self-care (01) ==
PROVIDERS: Emergency Provider Family Medicine
DX: S32.2XXA Fracture of coccyx, initial encounter for closed fracture (principal); W01.0XXA Fall on same level from slipping, tripping and stumbling without subsequent striking against object, initial encounter; I10 Essential (primary) hypertension
CPT/HCPCS: 72100; 72220; 96374; 96375; 99284; J2270; J2360

== ENCOUNTER 2021-12-13 19:00 | Inpatient (IN) | payer MEDICAID, SELFPAY ==
[2021-12-13 19:13] VITALS: BP 112/74; PULSE 99; RESP 18; TEMP 37.2; O2SAT 96; BMI 35.0
[2021-12-13 21:47] LABS: Basophils # 0.1 10^3/uL (0.0-0.1); Basophils % 0.7 %; Eosinophils % 0.4 %; Hematocrit 39.7 % (37.0-47.0); Hemoglobin 13.5 g/dL (11.5-15.3); Lymphocytes # 2.1 10^3/uL (0.8-4.8); Lymphocytes % 23.2 %; Mean Corpuscular Hemoglobin 33.7 pg (28.0-34.0); Mean Platelet Volume 10.2 fL (7.4-10.4); Monocytes # 0.8 10^3/uL (0.2-0.9); Monocytes % 8.8 %; Neutrophils # 5.96 10^3/uL (1.8-7.7); Neutrophils % 66.6 %; Nucleated Red Blood Cells % 0 %; Platelet Count 199 10^3/cmm (130-400); Red Blood Count 4.01 10^6/uL (4.1-5.3); Red Cell Distribution Width 14.1 % (12.1-15.1)
[2021-12-13] MEDS: sodium chloride 0.9% 1,000 ML 999 ML IV (21:51)
[2021-12-13 22:04] LABS: Alanine Aminotransferase 18 U/L (0-33); Alkaline Phosphatase 96 IU/L (35-105); Anion Gap 16.2 (5-19); Aspartate Amino Transferase 29 U/L (0-32); Blood Urea Nitrogen 12 mg/dL (8-23); Calcium 9.9 mg/dL (8.5-10.5); Carbon Dioxide 27 mmol/L (22-29); Chloride 96 mmol/L (98-107); Globulin 2.9 g/dL (1.3-4.6); Glomerular Filtration Rate 84.5 mL/min (90-130); Glucose 117 mg/dL (65-115); Lipase 12 U/L (13-60); Osmolality Calculated 283 mOsm/kg (285-295); Potassium 3.2 mmol/L (3.5-5.1); Sodium 136 mmol/L (136-145); Total Bilirubin 0.6 mg/dL (0.15-1.2); Total Protein 6.9 g/dL (6.6-8.7)
--- NOTE | 2021-12-13 22:07 | W.ED.GENADLT ---
HPI - General Adult General: Chief complaint: ER Hold Stated complaint: Dehydrated Time Seen by Provider: 12/13/21 21:40 History of Present Illness: Patient is a 61-year-old female with history of prior splenectomy presenting to the emergency room with ongoing multiple bouts of diarrhea since 5 days ago. Tell me that every time she eats anything she has diarrhea. She has 8-10 episodes of liquid stool every day. Patient denies any blood in the stool. Intermittent, patient with complaints of abdominal cramps. Patient denies any nausea/vomiting fever/chills, urinary complaint, flank pain. Patient denies any recent antibiotics or reading recent travel. Denies any sick contact around her. Patient denies any cough, runny nose, sore throat, chest pain, shortness of breath, loss of taste, fever or chill. Onset:5 days ago Duration:5 days Location:home Severity:moderate Associated symptoms: Deny chest pain, dyspnea, nausea, rash, palpitations or vomiting Review of Systems Const: Denies: fever(s) or chills Eyes: Denies: change in vision ENMT: Denies: mouth pain Card: Denies: chest pain or palpitations Resp: Denies: dyspnea or non-productive cough GI: Reports: abdominal pain (+intermittent abd cramps) and diarrhea; Denies: nausea or vomiting : Denies: dysuria Musc: Denies: extremity pain Skin/Breast: Denies: rash or new lesions Neuro: Denies: weakness in extremities Psych: Reports: other (Normal mood) Mello/Lymph: Denies: easy bruising PFSH ED PFSH: Medical History History of hypertension Morbid obesity Surgical History History of right hip replacement Status post splenectomy Family History Mother CAD (coronary artery disease) Father Stroke Social History Smoking and tobacco status: never smoked Alcohol intake: never Substance/Drug Use: never Lives independently: Yes Household members: none Marital status: Physical Exam Const: COMMON NORMALS: alert HENMT: COMMON NORMALS: atraumatic HEAD & SCALP: atraumatic MOUTH: moist mucous membranes not abnormal Eye: COMMON NORMALS: EOMs intact bilaterally and conjunctivae normal CONJUNCTIVA: Yes conjunctivae normal Neck/C-Spine: COMMON NORMALS: full ROM and supple Resp: COMMON NORMALS: normal respiratory effort and clear to auscultation bilaterally AUSCULTATION: clear to auscultation bilaterally Cardio: COMMON NORMALS: regular rate RATE: regular rate GI: COMMON NORMALS: Soft to palpation and non-tender PALPATION: Yes Soft to palpation OTHER: No focal TTP. NO guarding rebound, guarding, rigidity. No CVA tenderness to percussion. Neg Swan/Neg McBurney's point tenderness, no suprabupic tenderness to palpation. Extremity: COMMON NORMALS: full ROM Neuro: SENSORIUM/ORIENTATION: Yes alert MOTOR EXAM: No Abnormal motor strength present and Other motor observations present (no focal motor deficits) Psych: COMMON NORMALS: speech normal SPEECH: Yes normal speech MOOD & AFFECT: Yes euthymic mood Course Vital Signs: Vital signs: Vital Signs Temperature 97.4 F L 12/18/21 07:57 Pulse Rate 64 12/18/21 07:57 Respiratory Rate 16 12/18/21 07:57 Blood Pressure 125/81 12/18/21 07:57 Pulse Oximetry 96 12/18/21 07:57 [facility] - General Adult Medical Decision Making 61-year-old female with history of splenectomy presenting to the emergency room multiple episodes of diarrhea x5 days. Exam, patient appears to be dry. Hemodynamically stable. Patient is now hemoconcentrated at 13.5. Potassium 3.2 today. Creatinine within normal. Patient received IVF reports feeling symptomatically improved. Stool sample has been sent. Case has been signed out to Dr. Mena pending reassessment Lab Data : 12/18/21 03:50 12/18/21 03:50 Radiology Impressions Abdomen/Pelvis CT 12/14/21 10:45 IMPRESSION: 1. Moderate diffuse circumferential wall thickening involving the colon more prominent in the transverse, descending, and sigmoid colon compatible with infectious or inflammatory colitis with surrounding induration and inflammatory changes. 2. Scattered reactive mesenteric lymph nodes with mild mesenteric edema. 3. No other significant changes compared to previous. 4. Contracted gallbladder. 5. Stable RIGHT renal artery aneurysm measuring 15 mm. 6. Fibroid uterus. Notified Araceli Schwartz MD at 12/14/2021 11:54 AM. Laboratory Results WBC 8.9 10^3/uL (4.0-10.0) 12/15/21 04:52 RBC 3.18 10^6/uL (4.1-5.3) L 12/15/21 04:52 Hgb 10.7 g/dL (11.5-15.3) L 12/15/21 04:52 Hct 31.6 % (37.0-47.0) L 12/15/21 04:52 MCV 99.4 fl (81-99) H 12/15/21 04:52 MCH 33.6 pg (28.0-34.0) 12/15/21 04:52 MCHC 33.9 g/dL (30.0-36.0) 12/15/21 04:52 RDW 14.0 % (12.1-15.1) 12/15/21 04:52 Plt Count 180 10^3/cmm (130-400) 12/15/21 04:52 MPV 10.6 fL (7.4-10.4) H 12/15/21 04:52 Neut % (Auto) 52.2 % 12/15/21 04:52 Lymph % (Auto) 34.5 % 12/15/21 04:52 Randall % (Auto) 10.0 % 12/15/21 04:52 Eos % (Auto) 1.7 % 12/15/21 04:52 Baso % (Auto) 0.7 % 12/15/21 04:52 Neut # (Auto) 4.67 10^3/uL (1.8-7.7) 12/15/21 04:52 Lymph # (Auto) 3.1 10^3/uL (0.8-4.8) 12/15/21 04:52 Randall # (Auto) 0.9 10^3/uL (0.2-0.9) 12/15/21 04:52 Eos # (Auto) 0.2 10^3/uL (0.0-0.8) 12/15/21 04:52 Baso # (Auto) 0.1 10^3/uL (0.0-0.1) 12/15/21 04:52 Nucleated RBC % (auto) 0 % 12/15/21 04:52 Nucleated RBCs # 0.0 /100WBC 12/15/21 04:52 Sodium 138 mmol/L (136-145) 12/15/21 04:52 Potassium 3.3 mmol/L (3.5-5.1) L 12/15/21 04:52 Chloride 101 mmol/L (98-107) 12/15/21 04:52 Carbon Dioxide 28 mmol/L (22-29) 12/15/21 04:52 Anion Gap 12.3 (5-19) 12/15/21 04:52 BUN 10 mg/dL (8-23) 12/15/21 04:52 Creatinine 0.4 mg/dL (0.5-0.9) L 12/15/21 04:52 GFR Calculation 161.2 mL/min (90-130) H 12/15/21 04:52 Glucose 112 mg/dL (65-115) 12/15/21 04:52 Calculated Osmolality 286 mOsm/kg (285-295) 12/15/21 04:52 Calcium 9.4 mg/dL (8.5-10.5) 12/15/21 04:52 Magnesium 1.5 mg/dL (1.7-2.3) L 12/13/21 21:27 Total Bilirubin 0.4 mg/dL (0.15-1.2) 12/15/21 04:52 AST 14 U/L (0-32) 12/15/21 04:52 ALT 10 U/L (0-33) 12/15/21 04:52 Alkaline Phosphatase 74 IU/L (35-105) 12/15/21 04:52 Total Protein 5.2 g/dL (6.6-8.7) L 12/15/21 04:52 Albumin 3.1 g/dL (3.5-5.2) L 12/15/21 04:52 Globulin 2.1 g/dL (1.3-4.6) 12/15/21 04:52 Lipase 12 U/L (13-60) L 12/13/21 21:27 Urine Color Dark yellow (Yellow) 12/13/21 23:35 Urine Appearance Sl hazy (CLEAR) 12/13/21 23:35 Urine pH 5 (5-7) 12/13/21 23:35 Ur Specific [place] 1.025 (1.005-1.030) 12/13/21 23:35 Urine Protein 1+ (Negative) H 12/13/21 23:35 Urine Glucose (UA) Norm (Normal) 12/13/21 23:35 Urine Ketones 1+ (Negative) H 12/13/21 23:35 Urine Blood 2+ (Negative) H 12/13/21 23:35 Urine Nitrate Positive (Negative) H 12/13/21 23:35 Urine Bilirubin 2+ (Negative) H 12/13/21 23:35 Urine Urobilinogen 1 mg/dL (Negative) H 12/13/21 23:35 Ur Leukocyte Esterase 1+ (Negative) H 12/13/21 23:35 Urine RBC 0-4 /hpf (0-2) H 12/13/21 23:35 Urine WBC 0-4 /hpf (0-5) H 12/13/21 23:35 Ur Squamous Epith Cells 15-25 /hpf (0-5) H 12/13/21 23:35 Amorphous Sediment Not Reportable 12/13/21 23:35 Urine Bacteria 3+ /hpf (NONE) H 12/13/21 23:35 Hyaline Casts 5-10 /lpf H 12/13/21 23:35 Urine Mucus 4+ /hpf 12/13/21 23:35 Discharge Plan Discharge Patient Disposition: Placed in Observation Admit Provider: Chris Emerson Clinical Impression: Diarrhea, Generalized weakness, C. difficile diarrhea Discharge Diet: Advance as tolerated Discharge Activity: Increase activity as tolerated Coding Level of Care Code ED Electronic Service Technician for Chg Fwd Exam Comprehensive
[2021-12-13 23:51] LABS: Add Urine Microscopic? YES; Bacteria Urine 3+ /hpf; Bilirubin Urine 2+ (Negative); Blood Urine 2+ (Negative); Glucose Urine UA Norm (Normal); Ketones Urine 1+ (Negative); Leukocyte Esterase Urine 1+ (Negative); Mucus Urine 4+ /hpf; Nitrate Urine Positive (Negative); Protein Urine 1+ (Negative); RBC Urine 0-4 /hpf (0-2); Specific Gravity, Urine 1.025 (1.005-1.030); Squamous Epithelial Cell Urine 15-25 /hpf (0-5); Urine Appearance SL Hazy (CLEAR); Urine Color Dark Yellow (Yellow); Urobilinogen Urine 1 mg/dL (Negative); WBC Urine 0-4 /hpf (0-5); pH Urine 5 (5-7)
[2021-12-13 23:52] LABS: Add Urine Culture? No
--- NOTE | 2021-12-14 01:36 | PM.HP ---
Providers/Chief Complaint Admitting Physician: Chris Emerson Chief Complaint: Dehydrated History of Present Illness Pleasant 61-year-old lady presents due to 5 days of recurrent episodes of diarrhea, copious watery, nonbloody, up to 8 or 9 episodes a day. She has not been able to keep up with it. He is found positive for C. difficile. Denies any recent antibiotic use. Denies any hospitalization. Does state that she keeps birds at home including turkeys, geese. She has been having cramping abdominal pain. Some nausea, no vomiting. Afebrile. Recently had also fallen down with finding of coccygeal fracture which has been bothering her but pain is little bit better now. Had at least 4 large copious watery bowel movements in ER this evening before I had even seen her. Review of Systems Const: Denies: fever(s), chills, body aches or malaise Eyes: Denies: change in vision, eye discomfort or eye redness ENMT: Denies: throat pain, oral sores or ear or mastoid pain Card: Denies: chest pain, edema, pre-syncope or dyspnea on exertion Resp: Denies: dyspnea, productive cough, change in phlegm color or hemoptysis GI: Reports: abdominal pain, nausea and diarrhea; Denies: vomiting, constipation, hematochezia or melena : Denies: flank pain, urinary frequency or hematuria Musc: Reports: back pain; Denies: joint swelling or joint redness Skin/Breast: Denies: rash or new lesions Neuro: Denies: headache(s), numbness in extremities, weakness in extremities, dizziness, confusion or seizure-like activity Endo: Denies: polyuria or polydipsia Mello/Lymph: Denies: easy bleeding or tender lymph nodes All/Imm: Denies: urticaria or tongue swelling Medications/Allergies Home Medications Medication Instructions Recorded Confirmed Last Taken Type cyclobenzaprine 10 mg tablet 10 mg PO TID PRN #20 tab 12/12/21 Unknown Rx tramadol 50 mg tablet 50 mg PO Q6H PRN #14 tab 12/12/21 Unknown Rx Allergies Allergy/AdvReac Type Severity Reaction Status Date / Time acetaminophen [From Vicodin] Allergy ADR-Vomitin Verified 07/03/21 08:43 g cephalexin [From Keflex] Allergy ADR-Vomitin Verified 07/03/21 08:43 g hydrocodone [From Vicodin] Allergy ADR-Vomitin Verified 07/03/21 08:43 g propoxyphene [From Darvon] Allergy ADR-Vomitin Verified 07/03/21 08:43 g zolpidem [From Ambien] Allergy ADR-Agitate Verified 07/03/21 08:43 d PFSH Acute PFSH: Medical History History of hypertension Morbid obesity Surgical History History of right hip replacement Status post splenectomy Family History Mother CAD (coronary artery disease) Father Stroke Social History Smoking and tobacco status: never smoked Alcohol intake: never Substance/Drug Use: never Lives independently: Yes Household members: none Marital status: Vitals/I&O/Wt Last Vital Signs Temp 99.0 F 12/13/21 19:13 Pulse 99 12/13/21 19:13 Resp 18 12/13/21 19:13 BP 112/74 12/13/21 19:13 Pulse Ox 96 12/13/21 19:13 12/13/21 12/13/21 12/14/21 14:59 22:59 06:59 Intake Total 1000 / 1000 Balance 1000 / 1000 Weight last 48 hrs Weight 89.811 kg Physical Exam Const: COMMON NORMALS: alert GENERAL APPEARANCE: cooperative ORIENTATION/CONSCIOUSNESS: Yes awake HENMT: COMMON NORMALS: normocephalic, EAC's normal, Normal external nose present and moist oral mucous membranes HEAD & SCALP: normocephalic NOSE: Normal external nose present EXTERNAL AUDITORY CANAL: EAC's normal Neck/C-Spine: COMMON NORMALS: no meningeal signs Chest: CHEST: Yes Symmetrical chest wall rise Resp: COMMON NORMALS: clear to auscultation bilaterally AUSCULTATION: clear to auscultation bilaterally Cardio: COMMON NORMALS: regular rate, regular rhythm and No murmurs present (Cardio) RATE: regular rate RHYTHM: regular rhythm GI: COMMON NORMALS: Normal to inspection, nondistended, normoactive bowel sounds present and Soft to palpation PALPATION: Yes Soft to palpation and Yes Tenderness to palpation present (GI) Details: RLQ Extremity: COMMON NORMALS: no pedal edema Neuro: COMMON NORMALS: moves all extremities SENSORIUM/ORIENTATION: Yes alert MENINGEAL SIGNS: Yes no meningeal signs Psych: COMMON NORMALS: mental status grossly normal Skin: COMMON NORMALS: no wounds RASHES: no rashes Data : 12/13/21 21:27 12/13/21 21:27 Micro: Microbiology 12/13/21 22:08 Stool Lactoferrin - Final Stool C.difficile Toxin B Gene (PCR) - Final Occult Blood (FIT) - Final A&P Assessment and plan (1) C. difficile diarrhea: Copious diarrhea, 8-9 bowel movements at home, 4 bowel movements here, is not keeping up with it.. With dehydration. Gentle IV hydration. P.o. vancomycin. Declines rectal tube at this time. Keeps birds at home including geese and turkeys. Could be source of transmission. Denies recent antibiotics, denies hospitalization. Please advise at discharge on keeping extra caution around the birds, making sure to wash hands, use bleach on items that may come in contact with stool. Lives alone. Status: Acute (2) Generalized weakness: With dehydration, C. difficile colitis. As above. Status: Acute (3) Dehydration: Continue IV hydration P.o. intake as tolerating Status: Acute (4) Insomnia: She is willing to try trazodone. Status: Acute (5) Hypokalemia: Replace, check magnesium. Status: Acute Plan Recent coccygeal fracture after fall Attestations Medical Necessity Statement*: Place in observation for additional assessment management of C. difficile colitis due to severity of diarrhea with copious watery bowel movements, dehydration, electrolyte deficiencies. 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 difficile diarrhea A04.72 Generalized weakness R53.1 Dehydration E86.0 Insomnia G47.00 Hypokalemia E87.6
[2021-12-14] MEDS: ondansetron 2 mg/ML SDV 2 mL 4 MG IVP (01:37)
[2021-12-14 02:16] VITALS: BP 120/76; PULSE 90; RESP 18; TEMP 37.2; O2SAT 97
[2021-12-14] MEDS: lidocaine 1% 5 ML in potassium chloride premix 100 ML 50 ML IV (02:25)
[2021-12-14] MEDS: heparin 5,000 unit/mL INJ 1 mL 5000 UNIT SUBCUT ×3 (02:49→19:30)
[2021-12-14] MEDS: trazodone 50 mg Tablet PO ×2 (02:50→22:39)
[2021-12-14 03:06] LABS: Magnesium 1.5 mg/dL (1.7-2.3)
[2021-12-14 04:23] LABS: Basophils # 0.1 10^3/uL (0.0-0.1); Basophils % 0.6 %; Eosinophils # 0.1 10^3/uL (0.0-0.8); Eosinophils % 0.9 %; Hematocrit 36.2 % (37.0-47.0); Lymphocytes # 2.5 10^3/uL (0.8-4.8); Mean Corpuscular HGB Conc 33.1 g/dL (30.0-36.0); Mean Corpuscular Hemoglobin 34.3 pg (28.0-34.0); Mean Corpuscular Volume 103.4 fl (81-99); Monocytes # 0.9 10^3/uL (0.2-0.9); Neutrophils # 4.27 10^3/uL (1.8-7.7); Neutrophils % 55.1 %; Nucleated Red Blood Cells % 0 %; Platelet Count 174 10^3/cmm (130-400); Red Cell Distribution Width 14.3 % (12.1-15.1); White Blood Count 7.8 10^3/uL (4.0-10.0)
[2021-12-14] MEDS: lactated ringers 1,000 ML 100 ML IV ×3 (04:30→22:35)
[2021-12-14 04:48] LABS: Alanine Aminotransferase 14 U/L (0-33); Albumin Level 3.5 g/dL (3.5-5.2); Alkaline Phosphatase 79 IU/L (35-105); Anion Gap 14.7 (5-19); Aspartate Amino Transferase 21 U/L (0-32); Blood Urea Nitrogen 11 mg/dL (8-23); Carbon Dioxide 27 mmol/L (22-29); Chloride 98 mmol/L (98-107); Globulin 2.3 g/dL (1.3-4.6); Glomerular Filtration Rate 124.6 mL/min (90-130); Glucose 102 mg/dL (65-115); Osmolality Calculated 282 mOsm/kg (285-295); Potassium 3.7 mmol/L (3.5-5.1); Sodium 136 mmol/L (136-145); Total Bilirubin 0.5 mg/dL (0.15-1.2); Total Protein 5.8 g/dL (6.6-8.7)
[2021-12-14 06:36] VITALS: BP 103/71; PULSE 88; RESP 18; TEMP 37.4; O2SAT 95
--- NOTE | 2021-12-14 08:01 | PM.MISC ---
Miscellaneous Note Purpose of Documentation: progress note. Note: Seen this morning. CT abdomen checked moderate diffuse circumferential wall thickening involving colon more prominent and transverse descending sigmoid colon compatible with infectious or inflammatory colitis with surrounding induration and inflammatory changes. Reactive mesenteric lymph nodes with mild mesenteric edema also present. C. difficile positive Campylobacter jejuni positive We will add IV metronidazole 500 every 8 hours and azithromycin 500 daily IV to treat for above. Continue oral vancomycin at this time. Abdomen soft but tender to palpation and right lower quadrant more so than other quadrants. Lungs clear to auscultation. Patient continues to have bloody bowel movements every 3-4 hours. Continue IV hydration. Transfer to floor when bed available. Rest of management as per HPI
--- NOTE | 2021-12-14 10:45 | CT_ITS ---
WS: [id number] CT ABDOMEN PELVIS TECHNIQUE: Noncontrast CT of the abdomen and pelvis with coronal and sagittal reformatted images. CLINICAL INFORMATION: r/o collitis COMPARISON: June 12, 2021 DLP: 1205.[address] scans at [facility] use at least one of these dose optimization techniques: automated e xposure control; mA and/or kV adjustment per patient size (includes targeted exams where dose is matc hed to clinical indication); or iterative reconstruction. FINDINGS: Moderate circumferential wall thickening involving the sigmoid colon also involving the transverse an d LEFT descending colon with surrounding inflammatory changes suspicious for infectious or inflammato ry colitis. Recommend correlation with infection. Mild induration involving the RIGHT colon. No evide nce of high-grade obstruction. A few prominent mesenteric lymph nodes with some mesenteric edema like ly reactive. A few prominent lymph nodes along the celiac and SMA. No other significant changes neil red to previous. Normal noncontrast liver. Gallbladder is contracted. Noncontrast pancreas appears normal. Normal GE j unction. Distended stomach with food products. Adrenal glands are normal. No hydronephrosis in either kidney. Adrenal glands are normal. Unchanged RIGHT renal artery aneurysm measuring 15 mm. Tiny fat-c ontaining umbilical hernia. Fibroid uterus. Postoperative changes RIGHT KOLTON. CT/CT abdomen pelvis wo con [id number] IMPRESSION: 1. Moderate diffuse circumferential wall thickening involving the colon more p rominent in the transverse, descending, and sigmoid colon compatible with infec tious or inflammatory colitis with surrounding induration and inflammatory pritchard ges. 2. Scattered reactive mesenteric lymph nodes with mild mesenteric edema. 3. No other significant changes compared to previous. 4. Contracted gallbladder. 5. Stable RIGHT renal artery aneurysm measuring 15 mm. 6. Fibroid uterus. Notified Araceli Schwartz MD at 12/14/2021 11:54 AM.
[2021-12-14] MEDS: metroNIDAZOLE IV 500 MG/100 ML PREMIX 100 MG IV (15:37)
[2021-12-14] MEDS: azithromycin 500 MG in sodium chloride 0.9% 250 ML 250 MG IV (17:39)
[2021-12-14 20:00] VITALS: BP 123/75; PULSE 89; RESP 18; TEMP 37.7; O2SAT 92
--- NOTE | 2021-12-14 21:00 | PC.NURSE ---
i reported high temp 99.8 to nurse
[2021-12-14 22:36] VITALS: RESP 18
[2021-12-14] MEDS: oxyCODONE 5 mg IR Tab/Cap PO (22:36)
[2021-12-14] MEDS: metroNIDAZOLE IV 500 MG/100 ML PREMIX 125 MG IV (22:49)
[2021-12-15] VITALS (9 sets, daily range): BP systolic 107–123; BP diastolic 68–75; PULSE 70–77; RESP 14–18; TEMP 36.7–37.1; O2SAT 94–96
[2021-12-15] MEDS: heparin 5,000 unit/mL INJ 1 mL 5000 UNIT SUBCUT ×3 (04:23→20:03)
[2021-12-15 05:59] LABS: Basophils # 0.1 10^3/uL (0.0-0.1); Basophils % 0.7 %; Eosinophils # 0.2 10^3/uL (0.0-0.8); Eosinophils % 1.7 %; Hematocrit 31.6 % (37.0-47.0); Hemoglobin 10.7 g/dL (11.5-15.3); Lymphocytes # 3.1 10^3/uL (0.8-4.8); Lymphocytes % 34.5 %; Mean Corpuscular HGB Conc 33.9 g/dL (30.0-36.0); Mean Corpuscular Hemoglobin 33.6 pg (28.0-34.0); Mean Corpuscular Volume 99.4 fl (81-99); Mean Platelet Volume 10.6 fL (7.4-10.4); Monocytes # 0.9 10^3/uL (0.2-0.9); Neutrophils # 4.67 10^3/uL (1.8-7.7); Neutrophils % 52.2 %; Nucleated Red Blood Cells % 0 %; Platelet Count 180 10^3/cmm (130-400); Red Blood Count 3.18 10^6/uL (4.1-5.3); White Blood Count 8.9 10^3/uL (4.0-10.0)
[2021-12-15 06:25] LABS: Alanine Aminotransferase 10 U/L (0-33); Albumin Level 3.1 g/dL (3.5-5.2); Alkaline Phosphatase 74 IU/L (35-105); Anion Gap 12.3 (5-19); Aspartate Amino Transferase 14 U/L (0-32); Blood Urea Nitrogen 10 mg/dL (8-23); Calcium 9.4 mg/dL (8.5-10.5); Carbon Dioxide 28 mmol/L (22-29); Chloride 101 mmol/L (98-107); Globulin 2.1 g/dL (1.3-4.6); Glomerular Filtration Rate 161.2 mL/min (90-130); Glucose 112 mg/dL (65-115); Osmolality Calculated 286 mOsm/kg (285-295); Potassium 3.3 mmol/L (3.5-5.1); Sodium 138 mmol/L (136-145); Total Bilirubin 0.4 mg/dL (0.15-1.2); Total Protein 5.2 g/dL (6.6-8.7)
[2021-12-15] MEDS: metroNIDAZOLE IV 500 MG/100 ML PREMIX 125 MG IV ×2 (06:45→16:00)
[2021-12-15] MEDS: lidocaine 5% Patch 1 PATCH TOPICAL ×2 (09:39→22:02)
[2021-12-15] MEDS: oxyCODONE 5 mg IR Tab/Cap PO ×3 (09:46→21:58)
--- NOTE | 2021-12-15 11:23 | PM.PN ---
Subjective Subjective: Seen this morning. Patient continues to have watery bowel movements and bowel incontinence as she tries to get to the bedside commode. Hypokalemic today. Blood pressure stable. Patient seen in bed with blankets on but no gown. She states that by the time she is able to remove her gown to use the toilet she ends up soiling herself. Therefore she is lying there in a blanket. Vitals/I&O/Wt Last Vital Signs Temp 98.8 F 12/15/21 08:14 Pulse 76 12/15/21 08:14 Resp 18 12/15/21 09:46 BP 120/72 12/15/21 08:14 Pulse Ox 95 12/15/21 08:14 12/14/21 12/15/21 12/15/21 22:59 06:59 14:59 Intake Total 1286.667 / 2286.667 700 / 2986.667 460 / 460 Balance 1286.667 / 2286.667 700 / 2986.667 460 / 460 Weight last 48 hrs Weight 94.801 kg Weight 92.986 kg Weight 89.811 kg Physical Exam Narrative: General: Alert oriented x3, patient seen laying in bed with no gown on. She was only covered with blanket. HEENT: Normocephalic, atraumatic, EOMI, breathing normally Cardio: Regular rate rhythm, normal S1-S2, Respiratory: Good bilateral air entry, no wheezes no rhonchi appreciated GI: Abdomen soft, mildly tender to palpation all 4 quadrants with right lower quadrant more so than the others. Nondistended, bowel sounds + Behavior: Appropriate and cooperative Extremities: no edema, no cyanosis Data : 12/15/21 04:52 12/15/21 04:52 Micro: Microbiology 12/13/21 22:08 Stool Lactoferrin - Final Stool Enteric Pathogens (PCR) - Final Parasite Antigen Panel - Final C.difficile Toxin B Gene (PCR) - Final Occult Blood (FIT) - Final A&P Assessment and plan (1) Hypokalemia: Status: Acute (2) Dehydration: Status: Acute (3) Fall: Status: Acute (4) Diarrhea: Status: Acute (5) Generalized weakness: Status: Acute (6) C. difficile diarrhea: Status: Acute (7) Coccygeal fracture: Status: Acute Plan #Diarrhea secondary to severe c. difficile colitis #Positive for Campylobacter jejuni #Hypokalemia #Dehydration fall, generalized weakness #Coccygeal fracture -Continue oral vancomycin for total of 10 days ? Continue IV metronidazole 500 every 8 hours x5 days total ? Continue azithromycin 500 daily IV x3 days total ? Continue IV hydration ? Lidocaine patch for coccygeal area ? Replete potassium Full code DVT prophylaxis: Lovenox Attestations Medical Necessity Statement*: Will need to stay in the hospital to complete IV medication therapy due to severe C. difficile colitis. 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 difficile diarrhea A04.72 Coccygeal fracture S32.2XXA
[2021-12-15] MEDS: potassium chloride ER 20 mEq Tablet 40 MEQ PO ×2 (12:57→17:47)
--- NOTE | 2021-12-15 13:05 | PC.CHAP ---
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 [] Patient/Family/Request visit [] Outpatient visit [] Follow-up visit [] Physician referral [] Code/Alert [x] Routine visit [] Staff referral [] Actively dying [] Patient sleeping [] Family support [] [] Out of room [] Palliative care [] [] Receiving care in room [] Pre-surgical visit [] Trauma [] Long length of stay [] ICU visit [] Other: Relational/Emotional Strength [] Patient feels connected with others/family/visitors/staff [] Distress [] Loneliness/isolation [] Abandonment Spirituality of Patient [] Person of Yamileth [] Attends Samaritan of their Yamileth [] Believes in Prayer [] Reads Bible or Shinto materials [] There are Spiritual issues to be addressed Clinical Nurse Occupational Medicine Interventions [] Prayer [] Active listening [] Non-anxious presence [] Spiritual/emotional support [] Crisis/trauma care [] Spiritual counseling [] Bereavement support [] Provided bereavement packet [] Provided Bible/devotional materials [] Provided toy/stuffed animal, coloring book to patient or family member [] Provided Communion [] Anointing/[place] [] Salvation [] Completed spiritual assessment [] Other: Impact on Illness or Injury [] Angry [] Fearful [] Anxious [] Often cries [] Exhaustion [] Unable to work [] Unable to attend islam [] Unable to walk/stand [] Unable to read [] Unable to drive [] Unable to eat/drink [] Unable to sleep [] Unable to be with family [] Patient intubated [] Other: Summary isolation Time spent with patient
[2021-12-15] MEDS: lactated ringers 1,000 ML 100 ML IV (16:02)
[2021-12-15] MEDS: azithromycin 500 MG in sodium chloride 0.9% 250 ML 250 MG IV (17:48)
[2021-12-15] MEDS: trazodone 50 mg Tablet PO (22:03)
[2021-12-15] MEDS: metroNIDAZOLE IV 500 MG/100 ML PREMIX 100 MG IV (22:07)
[2021-12-16] VITALS (9 sets, daily range): BP systolic 104–132; BP diastolic 66–77; PULSE 68–79; RESP 14–18; TEMP 36.4–37.3; O2SAT 93–96
[2021-12-16] MEDS: heparin 5,000 unit/mL INJ 1 mL 5000 UNIT SUBCUT ×3 (02:15→17:58)
[2021-12-16] MEDS: lactated ringers 1,000 ML 100 ML IV (02:18)
[2021-12-16 04:48] LABS: Basophils % 0.4 %; Eosinophils # 0.3 10^3/uL (0.0-0.8); Eosinophils % 2.7 %; Hematocrit 31.8 % (37.0-47.0); Hemoglobin 10.8 g/dL (11.5-15.3); Lymphocytes # 3.5 10^3/uL (0.8-4.8); Lymphocytes % 30.4 %; Mean Corpuscular Hemoglobin 34.2 pg (28.0-34.0); Mean Corpuscular Volume 100.6 fl (81-99); Mean Platelet Volume 10.1 fL (7.4-10.4); Monocytes % 9.2 %; Neutrophils # 6.28 10^3/uL (1.8-7.7); Neutrophils % 55.4 %; Nucleated Red Blood Cells % 0 %; Platelet Count 205 10^3/cmm (130-400); Red Blood Count 3.16 10^6/uL (4.1-5.3); White Blood Count 11.3 10^3/uL (4.0-10.0)
[2021-12-16 05:14] LABS: Alanine Aminotransferase 8 U/L (0-33); Alkaline Phosphatase 75 IU/L (35-105); Aspartate Amino Transferase 15 U/L (0-32); Blood Urea Nitrogen 7 mg/dL (8-23); Calcium 8.9 mg/dL (8.5-10.5); Carbon Dioxide 28 mmol/L (22-29); Chloride 99 mmol/L (98-107); Globulin 2.3 g/dL (1.3-4.6); Glomerular Filtration Rate 161.2 mL/min (90-130); Glucose 100 mg/dL (65-115); Magnesium 1.3 mg/dL (1.7-2.3); Osmolality Calculated 274 mOsm/kg (285-295); Sodium 133 mmol/L (136-145); Total Bilirubin 0.3 mg/dL (0.15-1.2); Total Protein 5.3 g/dL (6.6-8.7)
[2021-12-16] MEDS: metroNIDAZOLE IV 500 MG/100 ML PREMIX 100 MG IV ×3 (05:21→22:18)
[2021-12-16] MEDS: lidocaine 5% Patch 1 PATCH TOPICAL ×2 (08:46→20:59)
[2021-12-16] MEDS: oxyCODONE 5 mg IR Tab/Cap PO ×2 (10:52→20:57)
--- NOTE | 2021-12-16 13:02 | P.PN_ITS ---
Subjective Subjective: Diarrhea still occuring but frequency has decreased. Feeling better Vitals/I&O/Wt Last Vital Signs Temp 97.9 F 12/16/21 12:00 Pulse 68 12/16/21 12:00 Resp 17 12/16/21 12:00 BP 125/77 12/16/21 12:00 Pulse Ox 96 12/16/21 12:00 12/15/21 12/16/21 12/16/21 22:59 06:59 14:59 Intake Total 590 / 2050 1200 / 3250 Balance 590 / 2050 1200 / 3250 Weight last 48 hrs Weight 95.708 kg Weight 94.801 kg Weight 92.986 kg Physical Exam Narrative: General: Alert oriented x3, patient seen laying in bed HEENT: Normocephalic, atraumatic, EOMI, breathing normally Cardio: Regular rate rhythm, normal S1-S2, Respiratory: Good bilateral air entry, no wheezes no rhonchi appreciated GI: Abdomen soft, mild generalized tenderness to palpation, significant improvement than prior days.? Nondistended, bowel sounds + Behavior: Appropriate and cooperative Extremities: no edema, no cyanosis ? Data : 12/16/21 04:25 12/16/21 04:25 A&P Assessment and plan (1) Insomnia: Status: Acute (2) Dehydration: Status: Acute (3) Fall: Status: Acute (4) Coccygeal fracture: Status: Acute (5) Diarrhea: Status: Acute (6) Generalized weakness: Status: Acute (7) C. difficile diarrhea: Status: Acute Plan #Diarrhea secondary to severe c. difficile colitis #Positive for Campylobacter jejuni #Hypokalemia #Dehydration fall, generalized weakness #Coccygeal fracture -Continue oral vancomycin for total of 10 days ? Continue IV metronidazole 500 every 8 hours x5 days total ? Continue azithromycin 500 daily IV x3 days total ? Continue IV hydration ? Lidocaine patch for coccygeal area ? Replete potassium Full code DVT prophylaxis: Lovenox Attestations Medical Necessity Statement*: Will need to stay in the hospital to complete IV medication therapy due to severe C. 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 difficile diarrhea A04.72
[2021-12-16] MEDS: sodium chloride 0.9% 1,000 ML 100 ML IV ×2 (14:02→22:19)
[2021-12-16] MEDS: azithromycin 500 MG in sodium chloride 0.9% 250 ML 250 MG IV (15:09)
[2021-12-16] MEDS: magnesium sulfate premix 4 GM/100 ML PREMIX IV (15:13)
[2021-12-16] MEDS: ondansetron 2 mg/ML SDV 2 mL 4 MG IVP (20:51)
[2021-12-16] MEDS: trazodone 50 mg Tablet PO (20:57)
[2021-12-17] VITALS (8 sets, daily range): BP systolic 104–132; BP diastolic 65–83; PULSE 62–72; RESP 13–18; TEMP 36.4–37; O2SAT 94–96
[2021-12-17] MEDS: heparin 5,000 unit/mL INJ 1 mL 5000 UNIT SUBCUT ×3 (02:27→17:46)
[2021-12-17 04:40] LABS: Hematocrit 30.5 % (37.0-47.0); Hemoglobin 9.9 g/dL (11.5-15.3); Mean Corpuscular HGB Conc 32.5 g/dL (30.0-36.0); Mean Corpuscular Hemoglobin 33.7 pg (28.0-34.0); Mean Corpuscular Volume 103.7 fl (81-99); Mean Platelet Volume 10.6 fL (7.4-10.4); Platelet Count 218 10^3/cmm (130-400); Red Blood Count 2.94 10^6/uL (4.1-5.3); Red Cell Distribution Width 14.4 % (12.1-15.1); White Blood Count 8.5 10^3/uL (4.0-10.0)
[2021-12-17 05:04] LABS: Alanine Aminotransferase 6 U/L (0-33); Albumin Level 2.8 g/dL (3.5-5.2); Alkaline Phosphatase 77 IU/L (35-105); Anion Gap 11.8 (5-19); Aspartate Amino Transferase 12 U/L (0-32); Blood Urea Nitrogen 5 mg/dL (8-23); Calcium 8.3 mg/dL (8.5-10.5); Carbon Dioxide 27 mmol/L (22-29); Chloride 105 mmol/L (98-107); Glomerular Filtration Rate 161.2 mL/min (90-130); Glucose 91 mg/dL (65-115); Osmolality Calculated 287 mOsm/kg (285-295); Potassium 3.8 mmol/L (3.5-5.1); Sodium 140 mmol/L (136-145); Total Bilirubin 0.2 mg/dL (0.15-1.2); Total Protein 4.8 g/dL (6.6-8.7)
[2021-12-17 05:11] LABS: Creatinine Clr Calc Pharmacy 161.0488
[2021-12-17 05:22] LABS: Absolute Segmented Neutrophil 2.5 10/cmm (1.6-7.1); Band Neutrophils Absolute 0.1 10^3/cmm (0.0-1.2); Lymphocytes 54 %; Monocytes Absolute 0.7 10^3/cmm (0.1-0.6); Segmented Neutrophils 29 %; Total Cells Counted 100 (0-100)
[2021-12-17 05:23] LABS: Absolute Eosinophils 0.4 10^3/cmm (0.0-0.7); Absolute Neutrophil 2.6 10^3/cmm (1.4-6.5); Eosinophils 5 %; Lymphocytes Absolute 4.8 10^3/cmm (1.2-3.4); Platelet Estimate Normal (Normal)
[2021-12-17] MEDS: metroNIDAZOLE IV 500 MG/100 ML PREMIX 100 MG IV ×3 (05:29→22:57)
[2021-12-17] MEDS: lidocaine 5% Patch 1 PATCH TOPICAL ×2 (08:33→20:43)
[2021-12-17] MEDS: oxyCODONE 5 mg IR Tab/Cap PO ×2 (09:43→20:42)
--- NOTE | 2021-12-17 14:22 | PM.PN ---
Subjective Subjective: Feeling a lot better compared to before. Can go home tomorrow. She needs meds to beds. Does not have any money to buy medications if we discharge her today. Vitals/I&O/Wt Last Vital Signs Temp 97.9 F 12/17/21 12:00 Pulse 63 12/17/21 12:00 Resp 14 12/17/21 12:00 BP 132/83 12/17/21 12:00 Pulse Ox 96 12/17/21 12:00 12/16/21 12/17/21 12/17/21 22:59 06:59 14:59 Intake Total 2638.333 / 2758.333 200 / 2958.333 940 / 940 Balance 2638.333 / 2758.333 200 / 2958.333 940 / 940 Weight last 48 hrs Weight 98.566 kg Weight 95.708 kg Physical Exam Narrative: General: Alert oriented x3, patient seen laying in bed HEENT: Normocephalic, atraumatic, EOMI, breathing normally Cardio: Regular rate rhythm, normal S1-S2, Respiratory: Good bilateral air entry, no wheezes no rhonchi appreciated GI: Abdomen soft, nontender to palpation. Nondistended, bowel sounds + Behavior: Appropriate and cooperative Extremities: no edema, no cyanosis Data : 12/17/21 03:45 12/17/21 03:45 A&P Assessment and plan (1) Hypokalemia: Status: Acute (2) Dehydration: Status: Acute (3) Fall: Status: Acute (4) Diarrhea: Status: Acute (5) Generalized weakness: Status: Acute (6) C. difficile diarrhea: Status: Acute (7) Coccygeal fracture: Status: Acute Plan #Diarrhea secondary to severe c. difficile colitis #Positive for Campylobacter jejuni #Hypokalemia?resolved #Dehydration fall, generalized weakness #Coccygeal fracture -Continue oral vancomycin for total of 10 days ? Continue IV metronidazole 500 every 8 hours x5 days total?we will complete on 12/18. ? Continue azithromycin 500 daily IV x3 days total?completed. ? Continue IV hydration ? Normal saline 1 L bolus for today. ? Lidocaine patch for coccygeal area ? Labs stable today. Full code DVT prophylaxis: Lovenox NOTE: PATIENT WILL NEED MEDS TO BEDS AT ME TOMORROW. Attestations Medical Necessity Statement*: Needs continued hospitalization for IV metronidazole today. May be able to discharge home tomorrow if medically stable. 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 difficile diarrhea A04.72 Coccygeal fracture S32.2XXA
[2021-12-17] MEDS: sodium chloride 0.9% 1,000 ML 999 ML IV (15:00)
[2021-12-17] MEDS: sodium chloride 0.9% 1,000 ML 100 ML IV (17:45)
[2021-12-17] MEDS: trazodone 50 mg Tablet PO (20:42)
[2021-12-18] VITALS (7 sets, daily range): BP systolic 125–161; BP diastolic 77–84; PULSE 60–69; RESP 16–18; TEMP 36.3–37; O2SAT 93–98
[2021-12-18] MEDS: heparin 5,000 unit/mL INJ 1 mL 5000 UNIT SUBCUT ×3 (03:16→18:02)
[2021-12-18] MEDS: sodium chloride 0.9% 1,000 ML 100 ML IV ×2 (03:16→14:13)
[2021-12-18 04:47] LABS: Basophils # 0.1 10^3/uL (0.0-0.1); Basophils % 1.4 %; Eosinophils # 0.5 10^3/uL (0.0-0.8); Hematocrit 32.4 % (37.0-47.0); Hemoglobin 10.4 g/dL (11.5-15.3); Lymphocytes # 4.3 10^3/uL (0.8-4.8); Mean Corpuscular HGB Conc 32.1 g/dL (30.0-36.0); Mean Corpuscular Hemoglobin 33.7 pg (28.0-34.0); Mean Corpuscular Volume 104.9 fl (81-99); Mean Platelet Volume 10.6 fL (7.4-10.4); Monocytes # 0.9 10^3/uL (0.2-0.9); Monocytes % 10.3 %; Neutrophils # 2.01 10^3/uL (1.8-7.7); Neutrophils % 22.2 %; Nucleated Red Blood Cells % 0 %; Platelet Count 258 10^3/cmm (130-400); Red Blood Count 3.09 10^6/uL (4.1-5.3); Red Cell Distribution Width 14.7 % (12.1-15.1); White Blood Count 9.1 10^3/uL (4.0-10.0)
[2021-12-18 05:12] LABS: Anion Gap 13.1 (5-19); Blood Urea Nitrogen 6 mg/dL (8-23); Calcium 8.7 mg/dL (8.5-10.5); Carbon Dioxide 25 mmol/L (22-29); Chloride 107 mmol/L (98-107); Glomerular Filtration Rate 161.2 mL/min (90-130); Glucose 95 mg/dL (65-115); Osmolality Calculated 289 mOsm/kg (285-295); Potassium 4.1 mmol/L (3.5-5.1); Sodium 141 mmol/L (136-145)
[2021-12-18 05:15] LABS: Slide Review Slide Review Perform
[2021-12-18] MEDS: metroNIDAZOLE IV 500 MG/100 ML PREMIX 100 MG IV ×3 (06:05→21:00)
[2021-12-18] MEDS: lidocaine 5% Patch 1 PATCH TOPICAL ×2 (09:21→21:01)
--- NOTE | 2021-12-18 12:59 | P.PN_ITS ---
Subjective Subjective: Patient was seen this morning she continues to complain of diarrhea, but her bowel movements are more soft, does complain of fatigue and tiredness, no fevers, no nausea, no vomiting Vitals/I&O/Wt Last Vital Signs Temp 97.4 F L 12/18/21 07:57 Pulse 64 12/18/21 07:57 Resp 16 12/18/21 07:57 BP 125/81 12/18/21 07:57 Pulse Ox 96 12/18/21 07:57 12/17/21 12/18/21 12/18/21 22:59 06:59 14:59 Intake Total 1240 / 3180 1051.667 / 4231.667 100 / 100 Output Total 800 / 800 Balance 440 / 2380 1051.667 / 3431.667 100 / 100 Weight last 48 hrs Weight 102.104 kg Weight 98.566 kg Physical Exam Const: COMMON NORMALS: no acute distress and patient oriented x3 Resp: COMMON NORMALS: normal respiratory effort, No retractions, No use of a ccessory muscles and clear to auscultation bilaterally AUSCULTATION: clear to auscultation bilaterally Cardio: COMMON NORMALS: regular rate, regular rhythm, S1 normal heart sound present and S2 normal heart sound present RATE: regular rate RHYTHM: regular rhythm HEART SOUNDS: S1 normal heart sound present and S2 normal heart sound present GI: COMMON NORMALS: Normal to inspection, nondistended, normoactive bowel sounds present, Soft to palpation and non-tender PALPATION: Yes Soft to palpation Extremity: COMMON NORMALS: no pedal edema Neuro: COMMON NORMALS: patient oriented x3 Psych: COMMON NORMALS: mental status grossly normal Data : 12/18/21 03:50 12/18/21 03:50 A&P Assessment and plan (1) Hypokalemia: Status: Acute (2) Dehydration: Status: Acute (3) Fall: Status: Acute (4) Diarrhea: Status: Acute (5) Generalized weakness: Status: Acute (6) C. difficile diarrhea: Status: Acute (7) Coccygeal fracture: Status: Acute Plan #Diarrhea secondary to severe c. difficile colitis #Positive for Campylobacter jejuni #Hypokalemia?resolved #Dehydration fall, generalized weakness #Coccygeal fracture -Continue oral vancomycin for total of 10 days ? Continue IV metronidazole 500 every 8 hours x5 days total?we will complete on 12/18. ? Continue azithromycin 500 daily IV x3 days total?completed. ? Continue IV hydration ? Lidocaine patch for coccygeal area ? Labs stable today. Full code DVT prophylaxis: Lovenox NOTE: PATIENT WILL NEED MEDS TO BEDS AT [place] Attestations Medical Necessity Statement*: Patient requires hospitalization for C. 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 difficile diarrhea A04.72 Coccygeal fracture S32.2XXA
[2021-12-18] MEDS: oxyCODONE 5 mg IR Tab/Cap PO ×2 (14:11→20:59)
[2021-12-18] MEDS: guaiFENesin 600 mg Tablet PO (20:55)
[2021-12-18] MEDS: trazodone 50 mg Tablet PO (20:59)
[2021-12-19] VITALS (7 sets, daily range): BP systolic 112–161; BP diastolic 68–90; PULSE 64–78; RESP 14–18; TEMP 36.2–37; O2SAT 93–97
[2021-12-19] MEDS: sodium chloride 0.9% 1,000 ML 100 ML IV (01:13)
[2021-12-19] MEDS: heparin 5,000 unit/mL INJ 1 mL 5000 UNIT SUBCUT ×3 (03:29→18:09)
[2021-12-19 06:03] LABS: Hematocrit 31.5 % (37.0-47.0); Hemoglobin 9.8 g/dL (11.5-15.3); Mean Corpuscular HGB Conc 31.1 g/dL (30.0-36.0); Mean Corpuscular Hemoglobin 33.6 pg (28.0-34.0); Mean Corpuscular Volume 107.9 fl (81-99); Mean Platelet Volume 10.2 fL (7.4-10.4); Platelet Count 316 10^3/cmm (130-400); Red Blood Count 2.92 10^6/uL (4.1-5.3); Red Cell Distribution Width 15.1 % (12.1-15.1)
[2021-12-19 06:25] LABS: Alanine Aminotransferase 11 U/L (0-33); Albumin Level 2.6 g/dL (3.5-5.2); Alkaline Phosphatase 72 IU/L (35-105); Aspartate Amino Transferase 30 U/L (0-32); Blood Urea Nitrogen 4 mg/dL (8-23); Calcium 8.7 mg/dL (8.5-10.5); Carbon Dioxide 23 mmol/L (22-29); Chloride 107 mmol/L (98-107); Globulin 2.4 g/dL (1.3-4.6); Glomerular Filtration Rate 161.2 mL/min (90-130); Glucose 92 mg/dL (65-115); Magnesium 1.7 mg/dL (1.7-2.3); Osmolality Calculated 287 mOsm/kg (285-295); Phosphorus 4.4 mg/dL (2.5-4.5); Sodium 140 mmol/L (136-145); Total Bilirubin 0.2 mg/dL (0.15-1.2)
[2021-12-19 06:40] LABS: Anion Gap 14.1 (5-19); Potassium 4.1 mmol/L (3.5-5.1)
[2021-12-19 07:16] LABS: Slide Review Slide Review Perform
[2021-12-19 07:17] LABS: Absolute Eosinophils 0.3 10^3/cmm (0.0-0.7); Absolute Neutrophil 3.8 10^3/cmm (1.4-6.5); Absolute Segmented Neutrophil 2.5 10/cmm (1.6-7.1); Anisocytosis 2+; Band Neutrophils Absolute 1.3 10^3/cmm (0.0-1.2); Eosinophils 4 %; Lymphocytes 38 %; Macrocytosis 2+; Platelet Estimate Normal (Normal); Segmented Neutrophils 28 %; Total Cells Counted 100 (0-100); Toxic Granulation 1+; Toxic Vacuolation 1+
[2021-12-19] MEDS: lidocaine 5% Patch 1 PATCH TOPICAL ×2 (08:35→21:47)
--- NOTE | 2021-12-19 16:26 | US_ITS ---
WS: [id number] Complete ABDOMINAL ULTRASOUND HISTORY: us gallbladder COMPARISON: 06/12/2021 Liver: 15.1 cm in length. Normal size liver. Mild increased echogenicity and coarse echotexture throu ghout the liver from hepatic steatosis. No mass identified. No bile duct dilatation. Portal Vein: Normal hepatopetal flow with monophasic waveform. Gallbladder: Normally distended gallbladder with mild diffuse wall thickening may be due to hepatocel lular disease. Gallbladder wall thickness: 0.3 cm. Pancreas: Normal size and echogenicity. CBD: 0.5 cm. Right kidney: 11.5 cm x 6.1 cm x 5.8 cm. No mass, cortical thickening or hydronephrosis. Left kidney: 12.1 cm x 6.8 cm x 5.7 cm. No mass, cortical thickening or hydronephrosis. Spleen: Patient provided a history of a prior splenectomy. There is a mass in the LEFT upper quadrant measuring 6.7 x 4.4 x 6.6 cm. This is probably related to splenosis. Multiple small splenic like mas ses were noted on the recent CT. Abdominal aorta and IVC are within normal limits. No ascites. US/US abdomen complete* [id number] IMPRESSION: 1. Mild gallbladder wall thickening without cholelithiasis. Probably related t o hepatocellular disease. 2. Mild hepatic steatosis. 3. LEFT upper quadrant mass consistent with splenosis. Patient is status post prior splenectomy. 4. No ascites or bile duct dilatation.
--- NOTE | 2021-12-19 16:27 | PM.PN ---
Subjective Subjective: Patient was seen this morning, she tells me that she continues to have abdominal distention, she had episodes of diarrhea overnight, she has some right upper quadrant pain this morning Vitals/I&O/Wt Last Vital Signs Temp 98.6 F 12/19/21 15:39 Pulse 67 12/19/21 15:39 Resp 16 12/19/21 15:39 BP 154/86 12/19/21 15:39 Pulse Ox 95 12/19/21 15:39 12/19/21 12/19/21 12/19/21 06:59 14:59 22:59 Intake Total 1200 / 2980 850 / 850 Balance 1200 / 2980 850 / 850 Weight last 48 hrs Weight 102.087 kg Weight 102.104 kg Physical Exam Const: COMMON NORMALS: no acute distress and patient oriented x3 Resp: COMMON NORMALS: normal respiratory effort, No retractions, No use of accessory muscles and clear to auscultation bilaterally AUSCULTATION: clear to auscultation bilaterally GI: COMMON NORMALS: Normal to inspection, nondistended, normoactive bowel sounds present and Soft to palpation PALPATION: Yes Soft to palpation OTHER: Has right upper quadrant tenderness Extremity: COMMON NORMALS: capillary refill normal, no clubbing, cyanosis or edema, no calf tenderness and no pedal edema Neuro: COMMON NORMALS: patient oriented x3 Psych: COMMON NORMALS: mental status grossly normal Data : 12/19/21 05:23 12/19/21 05:23 A&P Assessment and plan (1) Hypokalemia: Status: Acute (2) Dehydration: Status: Acute (3) Fall: Status: Acute (4) Diarrhea: Status: Acute (5) Generalized weakness: Status: Acute (6) C. difficile diarrhea: Status: Acute (7) Coccygeal fracture: Status: Acute Plan #Diarrhea secondary to severe c. difficile colitis #Positive for Campylobacter jejuni #Hypokalemia?resolved #Dehydration fall, generalized weakness #Coccygeal fracture -Continue oral vancomycin for total of 10 days ? Continue IV metronidazole 500 every 8 hours given continued abdominal pain ? Continue azithromycin 500 daily IV x3 days total?completed. ? Stop IV hydration ? Lidocaine patch for coccygeal area ? Labs stable today. -Right upper quadrant ultrasound Full code DVT prophylaxis: Lovenox NOTE: PATIENT WILL NEED MEDS TO BEDS AT [place] Attestations Medical Necessity Statement*: Patient requires hospitalization for C. 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 difficile diarrhea A04.72 Coccygeal fracture S32.2XXA
--- NOTE | 2021-12-19 16:42 | PC.NURSE ---
In room to notify patient that she is to have nothing by mouth until after her gallbladder US. Patient has water and 2 cans of Sprite on her bedside table. Attempted to move the Sprite and water to the side of the room by the sink and patient states, Just leave that right there I have enough self control. Left liquids at bedside at her request.
[2021-12-19] MEDS: metroNIDAZOLE IV 500 MG/100 ML PREMIX 100 MG IV (18:09)
--- NOTE | 2021-12-19 18:58 | PC.NURSE ---
Report to Lesley JONES at this time.
[2021-12-19] MEDS: trazodone 50 mg Tablet PO (21:44)
[2021-12-19] MEDS: oxyCODONE 5 mg IR Tab/Cap PO (21:44)
[2021-12-19] MEDS: guaiFENesin 600 mg Tablet PO (21:44)
[2021-12-20] VITALS: BP 144/66; PULSE 65; RESP 13; TEMP 36.6; O2SAT 92
[2021-12-20] MEDS: metroNIDAZOLE IV 500 MG/100 ML PREMIX 100 MG IV ×2 (00:03→08:33)
[2021-12-20] MEDS: heparin 5,000 unit/mL INJ 1 mL 5000 UNIT SUBCUT ×2 (02:27→11:37)
--- NOTE | 2021-12-20 07:11 | PC.NURSE ---
Report received from ROBERT Sutton.
[2021-12-20 08:00] VITALS: BP 129/72; PULSE 58; RESP 16; TEMP 36.6; O2SAT 95
[2021-12-20] MEDS: lidocaine 5% Patch 1 PATCH TOPICAL (08:32)
[2021-12-20 09:18] LABS: Basophils # 0.1 10^3/uL (0.0-0.1); Eosinophils # 0.3 10^3/uL (0.0-0.8); Eosinophils % 3.6 %; Hemoglobin 10.4 g/dL (11.5-15.3); Lymphocytes # 2.9 10^3/uL (0.8-4.8); Lymphocytes % 34.9 %; Mean Corpuscular HGB Conc 32.5 g/dL (30.0-36.0); Mean Corpuscular Hemoglobin 33.9 pg (28.0-34.0); Mean Corpuscular Volume 104.2 fl (81-99); Mean Platelet Volume 10.4 fL (7.4-10.4); Monocytes # 0.9 10^3/uL (0.2-0.9); Monocytes % 11.3 %; Neutrophils # 3.29 10^3/uL (1.8-7.7); Neutrophils % 40.1 %; Nucleated Red Blood Cells % 0 %; Platelet Count 390 10^3/cmm (130-400); Red Blood Count 3.07 10^6/uL (4.1-5.3); Red Cell Distribution Width 15.3 % (12.1-15.1); White Blood Count 8.2 10^3/uL (4.0-10.0)
[2021-12-20 09:39] LABS: Alanine Aminotransferase 15 U/L (0-33); Albumin Level 2.8 g/dL (3.5-5.2); Alkaline Phosphatase 82 IU/L (35-105); Anion Gap 14.3 (5-19); Aspartate Amino Transferase 33 U/L (0-32); Blood Urea Nitrogen 5 mg/dL (8-23); Calcium 9.2 mg/dL (8.5-10.5); Carbon Dioxide 27 mmol/L (22-29); Chloride 106 mmol/L (98-107); Globulin 2.4 g/dL (1.3-4.6); Glomerular Filtration Rate 161.2 mL/min (90-130); Glucose 90 mg/dL (65-115); Magnesium 1.7 mg/dL (1.7-2.3); Osmolality Calculated 293 mOsm/kg (285-295); Phosphorus 5.5 mg/dL (2.5-4.5); Potassium 4.3 mmol/L (3.5-5.1); Sodium 143 mmol/L (136-145); Total Bilirubin 0.2 mg/dL (0.15-1.2); Total Protein 5.2 g/dL (6.6-8.7)
[2021-12-20 11:38] LABS: Slide Review Slide Review Perform
[2021-12-20 11:54] VITALS: BP 169/99; PULSE 61; RESP 16; TEMP 36.6; O2SAT 94
--- NOTE | 2021-12-20 12:30 | PM.DCS ---
Discharge Providers Date of Admission: 12/15/21 14:04 Date of Discharge: December 20, 2021 Attending Provider at Admission: Chris Emerson Attending Provider at Discharge: Rian Chaves MD Diagnoses at Discharge Discharge Diagnosis (1) Hypokalemia: Status: Acute (2) Dehydration: Status: Acute (3) Fall: Status: Inactive (4) Diarrhea: Status: Acute (5) Generalized weakness: Status: Acute (6) C. difficile diarrhea: Status: Acute (7) Coccygeal fracture: Status: Inactive Reason for Visit Reason for Visit: Dehydrated Hospital Course Hospital Course This is a 61-year-old female who presents [facility] for fall, and diarrhea Patient was diagnosed with a coccygeal fracture, medically managed, advised to continue ambulating, pain control as needed Patient was found to have diarrhea secondary to C. difficile colitis, and Campylobacter jejuni managed with broad-spectrum antibiotic therapy including p.o. vancomycin, azithromycin and Flagyl. Patient has slow clinical progress, but overall clinically improved. Discharged on 5 remaining days of p.o. vancomycin and Flagyl, advised to disinfect all touch surfaces, follow-up with primary care in 1 week Physical Exam Const: COMMON NORMALS: no acute distress and patient oriented x3 Resp: COMMON NORMALS: normal respiratory effort, No retractions, No use of accessory muscles and clear to auscultation bilaterally AUSCULTATION: clear to auscultation bilaterally Cardio: COMMON NORMALS: regular rate, regular rhythm, S1 normal heart sound present and S2 normal heart sound present RATE: regular rate RHYTHM: regular rhythm HEART SOUNDS: S1 normal heart sound present and S2 normal heart sound present GI: COMMON NORMALS: Normal to inspection, nondistended, normoactive bowel sounds present, Soft to palpation and non-tender PALPATION: Yes Soft to palpation Extremity: COMMON NORMALS: no pedal edema Neuro: COMMON NORMALS: patient oriented x3 Psych: COMMON NORMALS: mental status grossly normal Discharge Data Studies Completed and Pending Completed Studies During Hospitalization Category Date Time Status CT abdomen pelvis wo con [id number] Routine Cat Scan 12/14/21 10:45 Completed US abdomen complete* [id number] Routine Ultrasound 12/19/21 16:26 Completed Pending at discharge Category Date Time Status Complete Blood Count w/Auto AM LABS Lab 12/21/21 04:00 Ordered Comprehensive Metabolic Panel AM LABS Lab 12/21/21 04:00 Ordered Magnesium AM LABS Lab 12/21/21 04:00 Ordered Phosphorus AM LABS Lab 12/21/21 04:00 Ordered Radiology Impressions Abdomen/Pelvis CT 12/14/21 10:45 IMPRESSION: 1. Moderate diffuse circumferential wall thickening involving the colon more prominent in the transverse, descending, and sigmoid colon compatible with infectious or inflammatory colitis with surrounding induration and inflammatory changes. 2. Scattered reactive mesenteric lymph nodes with mild mesenteric edema. 3. No other significant changes compared to previous. 4. Contracted gallbladder. 5. Stable RIGHT renal artery aneurysm measuring 15 mm. 6. Fibroid uterus. Notified Araceli Schwartz MD at 12/14/2021 11:54 AM. Abdomen Ultrasound 12/19/21 16:26 IMPRESSION: 1. Mild gallbladder wall thickening without cholelithiasis. Probably related to hepatocellular disease. 2. Mild hepatic steatosis. 3. LEFT upper quadrant mass consistent with splenosis. Patient is status post prior splenectomy. 4. No ascites or bile duct dilatation. Laboratory Results WBC 8.2 10^3/uL (4.0-10.0) 12/20/21 08:19 RBC 3.07 10^6/uL (4.1-5.3) L 12/20/21 08:19 Hgb 10.4 g/dL (11.5-15.3) L 12/20/21 08:19 Hct 32.0 % (37.0-47.0) L 12/20/21 08:19 MCV 104.2 fl (81-99) H 12/20/21 08:19 MCH 33.9 pg (28.0-34.0) 12/20/21 08:19 MCHC 32.5 g/dL (30.0-36.0) 12/20/21 08:19 RDW 15.3 % (12.1-15.1) H 12/20/21 08:19 Plt Count 390 10^3/cmm (130-400) 12/20/21 08:19 MPV 10.4 fL (7.4-10.4) 12/20/21 08:19 Neut % (Auto) 40.1 % 12/20/21 08:19 Lymph % (Auto) 34.9 % 12/20/21 08:19 [place] % (Auto) 11.3 % 12/20/21 08:19 Eos % (Auto) 3.6 % 12/20/21 08:19 Baso % (Auto) 1.0 % 12/20/21 08:19 Neut # (Auto) 3.29 10^3/uL (1.8-7.7) 12/20/21 08:19 Lymph # (Auto) 2.9 10^3/uL (0.8-4.8) 12/20/21 08:19 [place] # (Auto) 0.9 10^3/uL (0.2-0.9) 12/20/21 08:19 Eos # (Auto) 0.3 10^3/uL (0.0-0.8) 12/20/21 08:19 Baso # (Auto) 0.1 10^3/uL (0.0-0.1) 12/20/21 08:19 Nucleated RBC % (auto) 0 % 12/20/21 08:19 Total Counted 100 (0-100) 12/19/21 05:23 Atypical Lymphs % Not Reportable 12/19/21 05:23 Absolute Neutrophils 3.8 10^3/cmm (1.4-6.5) 12/19/21 05:23 Segmented Neutrophils 28 % 12/19/21 05:23 Abs Segm Neuts (Man) 2.5 10/cmm (1.6-7.1) 12/19/21 05:23 Band Neutrophils 14.0 % 12/19/21 05:23 Abs Band Neuts (Man) 1.3 10^3/cmm (0.0-1.2) H 12/19/21 05:23 Absolute Lymphocytes 4.8 10^3/cmm (1.2-3.4) H 12/17/21 03:45 Lymphocytes (Manual) 38 % 12/19/21 05:23 Monocytes (Manual) 11.0 % 12/19/21 05:23 Absolute Monocytes 1.0 10^3/cmm (0.1-0.6) H 12/19/21 05:23 Eosinophils (Manual) 4 % 12/19/21 05:23 Absolute Eosinophils 0.3 10^3/cmm (0.0-0.7) 12/19/21 05:23 Basophils (Manual) Not Reportable 12/19/21 05:23 Absolute Basophils 0.0 10^3/cmm (0.0-0.2) 12/17/21 03:45 Metamyelocytes 5.0 % 12/19/21 05:23 Nucleated RBCs # 0.0 /100WBC 12/20/21 08:19 Toxic Granulation 1+ H 12/19/21 05:23 Toxic Vacuolation 1+ H 12/19/21 05:23 Platelet Estimate Normal (Normal) 12/19/21 05:23 Anisocytosis 2+ H 12/19/21 05:23 Macrocytosis 2+ H 12/19/21 05:23 Sodium 143 mmol/L (136-145) 12/20/21 08:19 Potassium 4.3 mmol/L (3.5-5.1) 12/20/21 08:19 Chloride 106 mmol/L (98-107) 12/20/21 08:19 Carbon Dioxide 27 mmol/L (22-29) 12/20/21 08:19 Anion Gap 14.3 (5-19) 12/20/21 08:19 BUN 5 mg/dL (8-23) L 12/20/21 08:19 Creatinine 0.4 mg/dL (0.5-0.9) L 12/20/21 08:19 GFR Calculation 161.2 mL/min (90-130) H 12/20/21 08:19 Glucose 90 mg/dL (65-115) 12/20/21 08:19 Calculated Osmolality 293 mOsm/kg (285-295) 12/20/21 08:19 Calcium 9.2 mg/dL (8.5-10.5) 12/20/21 08:19 Phosphorus 5.5 mg/dL (2.5-4.5) H 12/20/21 08:19 Magnesium 1.7 mg/dL (1.7-2.3) 12/20/21 08:19 Total Bilirubin 0.2 mg/dL (0.15-1.2) 12/20/21 08:19 AST 33 U/L (0-32) H 12/20/21 08:19 ALT 15 U/L (0-33) 12/20/21 08:19 Alkaline Phosphatase 82 IU/L (35-105) 12/20/21 08:19 Total Protein 5.2 g/dL (6.6-8.7) L 12/20/21 08:19 Albumin 2.8 g/dL (3.5-5.2) L 12/20/21 08:19 Globulin 2.4 g/dL (1.3-4.6) 12/20/21 08:19 Lipase 12 U/L (13-60) L 12/13/21 21:27 Urine Color Dark yellow (Yellow) 12/13/21 23:35 Urine Appearance Sl hazy (CLEAR) 12/13/21 23:35 Urine pH 5 (5-7) 12/13/21 23:35 Ur Specific [place] 1.025 (1.005-1.030) 12/13/21 23:35 Urine Protein 1+ (Negative) H 12/13/21 23:35 Urine Glucose (UA) Norm (Normal) 12/13/21 23:35 Urine Ketones 1+ (Negative) H 12/13/21 23:35 Urine Blood 2+ (Negative) H 12/13/21 23:35 Urine Nitrate Positive (Negative) H 12/13/21 23:35 Urine Bilirubin 2+ (Negative) H 12/13/21 23:35 Urine Urobilinogen 1 mg/dL (Negative) H 12/13/21 23:35 Ur Leukocyte Esterase 1+ (Negative) H 12/13/21 23:35 Urine RBC 0-4 /hpf (0-2) H 12/13/21 23:35 Urine WBC 0-4 /hpf (0-5) H 12/13/21 23:35 Ur Squamous Epith Cells 15-25 /hpf (0-5) H 12/13/21 23:35 Amorphous Sediment Not Reportable 12/13/21 23:35 Urine Bacteria 3+ /hpf (NONE) H 12/13/21 23:35 Hyaline Casts 5-10 /lpf H 12/13/21 23:35 Urine Mucus 4+ /hpf 12/13/21 23:35 Vitals Last Vital Signs Temp 97.8 F 12/20/21 11:54 Pulse 61 12/20/21 11:54 Resp 16 12/20/21 11:54 BP 169/99 12/20/21 11:54 Pulse Ox 94 12/20/21 11:54 O2 Del Method 12/20/21 11:54 Discharge Plan Discharge Patient Disposition: Home Condition: Stable Prescriptions: New Mucinex 600 mg Tablet Extended Release 12hr 600 mg PO BEDTIME PRN (Reason: congestion) 30 Days Qty: 30 0RF metronidazole 500 mg tablet 500 mg PO Q8H 5 Days Qty: 15 0RF vancomycin 125 mg capsule 125 mg PO Q6H 5 Days Qty: 20 0RF Continued tramadol 50 mg tablet 50 mg PO Q6H PRN (Reason: pain) Qty: 14 0RF cyclobenzaprine 10 mg tablet 10 mg PO TID PRN (Reason: muscle spasm) Qty: 20 0RF Discharge Orders: Discharge Order (Routine); Ordered 12/20/21 Ordered By: Rian Chaves Referrals: [facility] [Other] (You are scheduled for a new patient appointment with Dr. Dunn at the [facility]. It is Wednesday, December 22, 2021 at 9:20 am. If you have any questions or need to reschedule please contatct them at [phone].) Discharge Diet: Advance as tolerated Discharge Activity: Increase activity as tolerated Patient Instructions: Acute Diarrhea (ED), Opioid Safety Activity Restrictions/Additional Instructions: Please come back if you have any abdominal pain, fever or chills, nausea or vomiting, worsening diarrhea, blood in the stool, inability hold down liquid or solids, or any new concerning complaints. -For your diarrhea please avoid antidiarrhea medications -Take antibiotics as prescribed -Please disinfect all touch surfaces -Please hydrate well -Drink at least 1.5 to 2 L of fluid a day -Use multivitamin daily -Also can use a probiotic daily -For your weight loss, can discuss with primary care about metformin or Victoza or Ozempic -Please follow-up with primary care provider in 1 week Discharge Attestations Time Spent in Discharge Care*: less than 30 min Quality Metrics Clinical Quality Measures [ No reported AMI, CVA or VTE this stay] Coding Level of Care Code Acute Chg FW DC note Diagnoses Hypokalemia E87.6 Dehydration E86.0 Fall W19.XXXA Diarrhea R19.7 Generalized weakness R53.1 C. difficile diarrhea A04.72 Coccygeal fracture S32.2XXA
== END 2021-12-20 14:49 | disposition home or self-care (01) | DRG 372 ==
LOC: ER 12-14 00:39 → ER IP 12-14 01:08 → MEDSURG 12-14 12:52
PROVIDERS: Internal Medicine; Admitting Provider Internal Medicine; Emergency Provider Emergency Medicine; Visit Provider Family Medicine
DX: A04.72 Enterocolitis due to Clostridium difficile, not specified as recurrent (principal); S32.2XXA Fracture of coccyx, initial encounter for closed fracture; E86.0 Dehydration; Z90.81 Acquired absence of spleen; I10 Essential (primary) hypertension; E66.01 Morbid (severe) obesity due to excess calories; Z68.39 Body mass index [BMI] 39.0-39.9, adult; G47.00 Insomnia, unspecified; E87.6 Hypokalemia; W19.XXXA Unspecified fall, initial encounter; A04.5 Campylobacter enteritis; D73.89 Other diseases of spleen
CPT/HCPCS: 36415; 74176; 76700; 80048; 80053; 81001; 82274; 83630; 83690; 83735; 84100; 85007; 85025; 87493; 87506; 96372; 96374; 97161; 99285; G0378; J0456; J1644; J2405; J3370; J3475; J3480; J7030; J7050; S0030

== ENCOUNTER 2022-02-04 21:48 | Observation (INO) | payer BC, MEDICAID, SELFPAY ==
[2022-02-04 21:52] VITALS: BP 189/94; PULSE 87; RESP 18; TEMP 36.9; O2SAT 96; BMI 34.2
--- NOTE | 2022-02-04 22:13 | W.ED.NAVMDI ---
HPI - Nausea/Vomiting/Diarrhea General: Chief complaint: Nausea/Vomiting/Diarrhea Stated complaint: Chills, D Time Seen by Provider: 02/04/22 22:05 History of Present Illness: 61-year-old female with a history of C. difficile colitis 1.5 months ago. She presents tonight with diarrhea. She notes that the diarrhea is the same in appearance as when she had C. difficile. She denies any fever. She states that she has had chills she denies significant belly pain. No vomiting. No blood in the stool. MD elicited complaint: nausea and diarrhea Pertinent past history: other Onset (ago): hour(s) Description of diarrhea: watery Associated nausea: Yes Associated abdominal pain: No Location of pain: None Associated symtoms: Reports fevers/chills, anorexia and nausea; Denies altered mental status, chest pain, cough, diaphoresis, headache(s) or short of breath Review of Systems Const: Denies: diaphoresis Card: Denies: chest pain Resp: Denies: dyspnea, productive cough or non-productive cough GI: Reports: nausea and diarrhea; Denies: abdominal pain, vomiting or hematochezia Neuro: Denies: headache(s) PFSH ED PFSH: Medical History History of hypertension Morbid obesity Surgical History History of right hip replacement Status post splenectomy Family History Mother CAD (coronary artery disease) Father Stroke Social History Smoking and tobacco status: never smoked Alcohol intake: never Lives independently: Yes Household members: none Marital status: Physical Exam Const: EXAM LIMITATIONS: no altered mental status HENMT: COMMON NORMALS: normocephalic and atraumatic HEAD & SCALP: normocephalic and atraumatic Eye: COMMON NORMALS: Equal, round and reactive pupils present and EOMs intact bilaterally PUPIL: Yes Equal, round and reactive pupils present Neck/C-Spine: GENERAL: Yes trachea midline Chest: CHEST: Yes Symmetrical chest wall rise Resp: COMMON NORMALS: normal respiratory effort, No use of accessory muscles and clear to auscultation bilaterally AUSCULTATION: clear to auscultation bilaterally Cardio: COMMON NORMALS: regular rate and regular rhythm RATE: regular rate RHYTHM: regular rhythm GI: COMMON NORMALS: Normal to inspection, nondistended, normoactive bowel sounds present, Soft to palpation and non-tender PALPATION: Yes Soft to palpation Extremity: COMMON NORMALS: no pedal edema Neuro: NICKY COMA SCALE: document GCS findings Nicky coma scale eye opening: Spontaneous Nicky coma scale verbal response: Orientated Nicky coma scale motor response: Obey commands Mittie coma scale total score: 15 Course Vital Signs: Vital signs: Vital Signs Temperature 98.5 F 02/04/22 21:52 Pulse Rate 89 02/04/22 23:57 Respiratory Rate 19 H 02/04/22 23:57 Blood Pressure 164/86 02/04/22 23:57 Pulse Oximetry 96 02/04/22 23:57 Oxygen Delivery Me thod 02/04/22 21:52 MDM - Nausea/Vomiting/Diarrhea Medical Decision Making 61-year-old female with a history of C. difficile colitis. She presents with diarrhea and generalized weakness. She lives at home alone. She is concerned about her ability to care for herself with the amount of diarrhea she is having given her weakness. Her CBC is normal. Her potassium is 3.4. Her lactate is 3.5, prior to hydration. Because of the above, she will be admitted. She is given oral vancomycin and Flagyl as well as IV fluids in the ER. These will be continued. Lab Data : 02/04/22 22:45 02/04/22 22:45 Laboratory Results WBC 6.4 10^3/uL (4.0-10.0) 02/04/22 22:45 RBC 3.45 10^6/uL (4.1-5.3) L 02/04/22 22:45 Hgb 11.8 g/dL (11.5-15.3) 02/04/22 22:45 Hct 34.9 % (37.0-47.0) L 02/04/22 22:45 MCV 101.2 fl (81-99) H 02/04/22 22:45 MCH 34.2 pg (28.0-34.0) H 02/04/22 22:45 MCHC 33.8 g/dL (30.0-36.0) 02/04/22 22:45 RDW 14.6 % (12.1-15.1) 02/04/22 22:45 Plt Count 235 10^3/cmm (130-400) 02/04/22 22:45 MPV 9.7 fL (7.4-10.4) 02/04/22 22:45 Neut % (Auto) 57.2 % 02/04/22 22:45 Lymph % (Auto) 33.8 % 02/04/22 22:45 [place] % (Auto) 7.8 % 02/04/22 22:45 Eos % (Auto) 0.5 % 02/04/22 22:45 Baso % (Auto) 0.5 % 02/04/22:45 Neut # (Auto) 3.65 10^3/uL (1.8-7.7) 02/04/22 22:45 Lymph # (Auto) 2.2 10^3/uL (0.8-4.8) 02/04/22 22:45 [place] # (Auto) 0.5 10^3/uL (0.2-0.9) 02/04/22 22:45 Eos # (Auto) 0.0 10^3/uL (0.0-0.8) 02/04/22 22:45 Baso # (Auto) 0.0 10^3/uL (0.0-0.1) 02/04/22 22:45 Nucleated RBC % (auto) 0 % 02/04/22 22:45 Nucleated RBCs # 0.0 /100WBC 02/04/22 22:45 Sodium 138 mmol/L (136-145) 02/04/22 22:45 Potassium 3.4 mmol/L (3.5-5.1) L 02/04/22 22:45 Chloride 97 mmol/L (98-107) L 02/04/22 22:45 Carbon Dioxide 27 mmol/L (22-29) 02/04/22 22:45 Anion Gap 17.4 (5-19) 02/04/22 22:45 BUN 7 mg/dL (8-23) L 02/04/22 22:45 Creatinine 0.5 mg/dL (0.5-0.9) 02/04/22 22:45 GFR Calculation 124.6 mL/min (90-130) 02/04/22 22:45 Glucose 114 mg/dL (65-115) 02/04/22 22:45 Calculated Osmolality 285 mOsm/kg (285-295) 02/04/22 22:45 Lactate 3.5 mmol/L (0.5-2.2) H 02/04/22 22:45 Calcium 9.0 mg/dL (8.5-10.5) 02/04/22 22:45 Total Bilirubin 1.1 mg/dL (0.15-1.2) 02/04/22 22:45 AST 35 U/L (0-32) H 02/04/22 22:45 ALT 19 U/L (0-33) 02/04/22 22:45 Alkaline Phosphatase 85 U/L (35-105) 02/04/22 22:45 Creatine Kinase 41 U/L (26-192) 02/04/22 22:45 Total Protein 6.8 g/dL (6.6-8.7) 02/04/22 22:45 Albumin 4.0 g/dL (3.5-5.2) 02/04/22 22:45 Globulin 2.8 g/dL (1.3-4.6) 02/04/22 22:45 Lipase 11 U/L (13-60) L 02/04/22 22:45 Discharge Plan Discharge Patient Disposition: Placed in Observation Clinical Impression: Diarrhea, Clostridium difficile infection Condition: Stable Prescriptions: New metronidazole 500 mg tablet 500 mg PO BID 7 Days Qty: 14 0RF vancomycin 250 mg capsule 250 mg PO QID 14 Days Qty: 56 0RF No Action cyclobenzaprine 10 mg tablet 10 mg PO TID PRN (Reason: muscle spasm) Qty: 20 0RF Patient Instructions: C. Diff (Clostridioides Difficile) Infection (ED) Activity Restrictions/Additional Instructions: Medications as directed. Make sure you are drinking plenty of fluids. A probiotic can help, these are available [id number]. Increasing your fiber intake can also help slow diarrhea. Coding Level of Care Code ED Barber Apprentice for Janag Fwd Exam Comprehensive
[2022-02-04] MEDS: sodium chloride 0.9% 1,000 ML 999 ML IV (22:46)
[2022-02-04 22:56] LABS: Basophils % 0.5 %; Eosinophils % 0.5 %; Hematocrit 34.9 % (37.0-47.0); Hemoglobin 11.8 g/dL (11.5-15.3); Lymphocytes # 2.2 10^3/uL (0.8-4.8); Lymphocytes % 33.8 %; Mean Corpuscular HGB Conc 33.8 g/dL (30.0-36.0); Mean Corpuscular Hemoglobin 34.2 pg (28.0-34.0); Mean Corpuscular Volume 101.2 fl (81-99); Mean Platelet Volume 9.7 fL (7.4-10.4); Monocytes # 0.5 10^3/uL (0.2-0.9); Monocytes % 7.8 %; Neutrophils # 3.65 10^3/uL (1.8-7.7); Neutrophils % 57.2 %; Nucleated Red Blood Cells % 0 %; Platelet Count 235 10^3/cmm (130-400); Red Blood Count 3.45 10^6/uL (4.1-5.3); Red Cell Distribution Width 14.6 % (12.1-15.1); White Blood Count 6.4 10^3/uL (4.0-10.0)
[2022-02-04 23:15] LABS: Lactate (Lactic Acid level) 3.5 mmol/L (0.5-2.2)
[2022-02-04 23:17] LABS: Alanine Aminotransferase 19 U/L (0-33); Alkaline Phosphatase 85 U/L (35-105); Anion Gap 17.4 (5-19); Aspartate Amino Transferase 35 U/L (0-32); Blood Urea Nitrogen 7 mg/dL (8-23); Carbon Dioxide 27 mmol/L (22-29); Chloride 97 mmol/L (98-107); Creatine Phosphokinase 41 U/L (26-192); Globulin 2.8 g/dL (1.3-4.6); Glomerular Filtration Rate 124.6 mL/min (90-130); Glucose 114 mg/dL (65-115); Lipase 11 U/L (13-60); Osmolality Calculated 285 mOsm/kg (285-295); Potassium 3.4 mmol/L (3.5-5.1); Sodium 138 mmol/L (136-145); Total Bilirubin 1.1 mg/dL (0.15-1.2); Total Protein 6.8 g/dL (6.6-8.7)
[2022-02-04 23:57] VITALS: BP 164/86; PULSE 89; RESP 19; O2SAT 96
[2022-02-05] MEDS: metroNIDAZOLE 500 MG Tablet PO (00:12)
--- NOTE | 2022-02-05 01:43 | PM.HP ---
Providers/Chief Complaint Chief Complaint: Chills, D History of Present Illness Denia Espino is a 61 year old female who suffered from C. difficile diarrhea about a month ago and spent quite a few days in the hospital because of her profuse diarrhea, resenting with chief complaint of 2 episodes of loose stools at home. Patient lives alone, she started experiencing diarrhea yesterday, in total she only had 2 episodes so far, she has not eaten anything today, she came to the ER because of her diarrhea which she is stating that it is pretty similar to the last time when she was diagnosed with C. difficile diarrhea. She has not noticed any chest pain, shortness of breath, fever, nausea or vomiting. She is afraid to go home from the ER Her lactic acid is 3 no active signs of sepsis I have requested KUB to rule out toxic megacolon potassium 3.4 hypokalemia lactic 3.5 She is hemodynamically stable Does not take anything for her hypertension at home Review of Systems Const: Denies: fever(s), chills or body aches Eyes: Denies: change in vision ENMT: Denies: throat pain Card: Denies: chest pain Resp: Denies: dyspnea GI: Reports: diarrhea : Denies: flank pain Musc: Denies: neck pain Skin/Breast: Denies: rash Neuro: Denies: headache(s) Psych: Denies: anxiety Endo: Denies: polyuria Mello/Lymph: Denies: easy bruising All/Imm: Denies: urticaria Medications/Allergies Home Medications Medication Instructions Recorded Confirmed Last Taken Type cyclobenzaprine 10 mg tablet 10 mg PO TID PRN muscle spasm #20 12/12/21 12/14/21 Unknown Rx tabs metronidazole 500 mg tablet 500 mg PO BID 7 days #14 tabs 02/04/22 Unknown Rx vancomycin 250 mg capsule 250 mg PO QID 14 days #56 caps 02/04/22 Unknown Rx Allergies Allergy/AdvReac Type Severity Reaction Status Date / Time cephalexin [From Keflex] Allergy ADR-Nausea Verified 12/17/21 16:17 hydrocodone [From Vicodin] Allergy ADR-Nausea Verified 12/17/21 16:18 propoxyphene [From Darvon] Allergy ADR-Nausea Verified 12/17/21 16:18 zolpidem [From Ambien] Allergy ADR-Agitate Verified 12/14/21 08:03 d PFSH Acute PFSH: Medical History History of hypertension Morbid obesity Surgical History History of right hip replacement Status post splenectomy Family History Mother CAD (coronary artery disease) Father Stroke Social History Smoking and tobacco status: never smoked Alcohol intake: never Lives independently: Yes Household members: none Marital status: Vitals/I&O/Wt Last Vital Signs Temp 98.5 F 02/04/22 21:52 Pulse 89 02/04/22 23:57 Resp 19 H 02/04/22 23:57 BP 164/86 02/04/22 23:57 Pulse Ox 96 02/04/22 23:57 O2 Del Method 02/04/22 21:52 02/04/22 02/04/22 02/05/22 14:59 22:59 06:59 Intake Total 1000 / 1000 Balance 1000 / 1000 Weight last 48 hrs Weight 87.543 kg Physical Exam Narrative: Has not middle-aged female Awake and alert Signs of dehydration present Nonfocal neuro exam EOMI , PERRLA Abdomen soft, nontender Bowel sound present Dorsum to no edema S1, S2 Currently doing well on room air Appropriate mood and affect Data : 02/04/22 22:45 02/04/22 22:45 A&P Assessment and plan (1) Clostridium difficile infection: Status: Acute (2) Diarrhea: Status: Acute Plan C. difficile diarrhea history She only had 2 episodes of loose stools, she received 1 dose of p.o. vancomycin in the ER, I will wait on C. difficile results to continue p.o. vancomycin regime Start IV fluid hydration Check CRP and procalcitonin No sign of toxic megacolon No active signs of sepsis Signs of dehydration positive For hypertension I will add lisinopril give her 1 dose of hydralazine 10 mg IV push for now Cardiac diet DVT prophylaxis Lovenox Full code anticipating she will be able to go home tomorrow morning Attestations Medical Necessity Statement*: Anticipating discharge within 48 hours for management of C. difficile related diarrhea and dehydration Time Spent in Patient Care: 40 Coding Level of Care Code Acute Synthetic Staple Extruder for Louie Fwlorenzo Diagnoses Clostridium difficile infection A49.8 Diarrhea R19.7
--- NOTE | 2022-02-05 01:47 | XRR_ITS ---
PROCEDURE INFORMATION: Exam: XR Abdomen Exam date and time: 02/05/2022 1:52 AM Age: 61 years old Clinical indication: Abdominal pain; Epigastric; Additional info: Ileus TECHNIQUE: Imaging protocol: Radiologic exam of the abdomen. Views: Frontal supine view of the abdomen. 1 View. COMPARISON: CT abdomen pelvis con [id number] 12/14/2021 11:16 AM FINDINGS: Gastrointestinal tract: Normal. No bowel dilation. Bones/joints: Spondyloarthropathy changes throughout lumbar spine. Unremarkable appearance of the included right hip arthroplasty. XR/XR KUB portable [id number] IMPRESSION: No acute findings.
[2022-02-05 02:16] LABS: Procalcitonin 0.03 ng/mL (0-0.5)
[2022-02-05 03:42] VITALS: BMI 34.2
[2022-02-05 04:00] VITALS: BP 174/82; PULSE 76; RESP 17; TEMP 37.4; O2SAT 97
[2022-02-05] MEDS: sodium chloride 0.9% 1,000 ML 75 ML IV (04:19)
[2022-02-05] MEDS: potassium chloride ER 20 mEq Tablet 40 MEQ PO (04:19)
[2022-02-05] MEDS: hyDRALAzine 20 mg/mL INJ 1 mL 10 MG IVP (04:20)
[2022-02-05] MEDS: enoxaparin 40 mg/0.4 mL Syringe SUBCUT (04:22)
[2022-02-05 05:09] LABS: Basophils % 0.6 %; Eosinophils % 0.6 %; Hematocrit 35.5 % (37.0-47.0); Hemoglobin 11.5 g/dL (11.5-15.3); Lymphocytes # 2.4 10^3/uL (0.8-4.8); Lymphocytes % 37.6 %; Mean Corpuscular HGB Conc 32.4 g/dL (30.0-36.0); Mean Corpuscular Hemoglobin 33.9 pg (28.0-34.0); Mean Corpuscular Volume 104.7 fl (81-99); Monocytes # 0.5 10^3/uL (0.2-0.9); Monocytes % 7.8 %; Neutrophils # 3.35 10^3/uL (1.8-7.7); Neutrophils % 53.2 %; Nucleated Red Blood Cells % 0 %; Platelet Count 231 10^3/cmm (130-400); Red Blood Count 3.39 10^6/uL (4.1-5.3); Red Cell Distribution Width 14.7 % (12.1-15.1); White Blood Count 6.3 10^3/uL (4.0-10.0)
[2022-02-05 05:23] LABS: Lactate (Lactic Acid level) 1.6 mmol/L (0.5-2.2)
[2022-02-05 05:27] LABS: Anion Gap 16.4 (5-19); Blood Urea Nitrogen 7 mg/dL (8-23); Calcium 8.9 mg/dL (8.5-10.5); Carbon Dioxide 25 mmol/L (22-29); Chloride 98 mmol/L (98-107); Glomerular Filtration Rate 161.2 mL/min (90-130); Glucose 106 mg/dL (65-115); Magnesium 1.6 mg/dL (1.7-2.3); Osmolality Calculated 280 mOsm/kg (285-295); Potassium 3.4 mmol/L (3.5-5.1); Sodium 136 mmol/L (136-145)
[2022-02-05 05:31] LABS: Creatinine Clr Calc Pharmacy 151.0286
[2022-02-05 05:35] LABS: Add Urine Microscopic? YES; Bilirubin Urine Neg (Negative); Blood Urine Trace (Negative); Glucose Urine UA Norm (Normal); Ketones Urine Negative (Negative); Leukocyte Esterase Urine Negative (Negative); Nitrate Urine Negative (Negative); Protein Urine Neg (Negative); Sulfosalicylic Acid Urine Negative (Negative); Urine Appearance Clear (CLEAR); Urine Color Yellow (Yellow); Urobilinogen Urine 4 mg/dL (Negative); pH Urine 8 (5-7)
[2022-02-05 05:36] LABS: Add Urine Culture? No; Bacteria Urine 1+ /hpf; Mucus Urine 1+ /hpf; RBC Urine 0-4 /hpf (0-2); Squamous Epithelial Cell Urine 15-25 /hpf (0-5); WBC Urine 0-4 /hpf (0-5)
--- NOTE | 2022-02-05 07:42 | PC.PHAR ---
pt states she takes no rx medications-pt states finished antibiotics about 2 weeks ago for her c-diff pt states only takes multivitamin prn when she remembers to take
[2022-02-05 07:52] VITALS: BP 138/73; PULSE 86; RESP 16; TEMP 36.9; O2SAT 97
[2022-02-05] MEDS: lisinopril 10 mg Tablet PO (09:43)
[2022-02-05] MEDS: magnesium sulfate premix 2 GM/50 ML PIGGYBACK IV (09:43)
[2022-02-05] MEDS: potassium chloride oral liq 20 mEq/15 mL UDC 40 MEQ PO (09:44)
[2022-02-05 09:45] VITALS: PULSE 68; RESP 16; O2SAT 97
[2022-02-05 12:00] VITALS: BP 151/87; PULSE 79; RESP 16; TEMP 36.8; O2SAT 97
--- NOTE | 2022-02-05 12:09 | PC.CHAP ---
x Pastoral Care Encounter/Spiritual Assessment Type of Contact [] Declined coding director visit [] Patient/Family/Request visit [] Outpatient visit [] Follow-up visit [] Physician referral [] Code/Alert [x] Routine visit [] Staff referral [] Actively dying [] Patient sleeping [] Family support [] [] Out of room [] Palliative care [] [] Receiving care in room [] Pre-surgical visit [] Trauma [] Long length of stay [] ICU visit [] Other: Relational/Emotional Strength [] Patient feels connected with others/family/visitors/staff [] Distress [] Loneliness/isolation [] Abandonment Spirituality of Patient [x] Person of Yamileth [] Attends Jew of their Yamileth [x] Believes in Prayer [] Reads Bible or Yazidism materials [] There are Spiritual issues to be addressed Networking Engineer Interventions [x] Prayer [x] Active listening [] Non-anxious presence [] Spiritual/emotional support [] Crisis/trauma care [] Spiritual counseling [] Bereavement support [] Provided bereavement packet [x Provided Bible/devotional materials [] Provided toy/stuffed animal, coloring book to patient or family member [] Provided Communion [] Anointing/Bath [] Salvation [x] Completed spiritual assessment [] Other: Impact on Illness or Injury [] Angry [] Fearful [] Anxious [] Often cries [] Exhaustion [] Unable to work [] Unable to attend adventism [] Unable to walk/stand [] Unable to read [] Unable to drive [] Unable to eat/drink [] Unable to sleep [] Unable to be with family [] Patient intubated [] Other: Summary Time spent with patient 10 min x
--- NOTE | 2022-02-05 13:07 | XR_ITS ---
WS: [id number] XR chest 1V portable [id number] REASON FOR EXAM: Pleuritic CP L chest FINDINGS: The chest is unchanged compared to 06/11/2021. Moderate tortuosity the thoracic aorta heart size at the upper limits of normal. Calcified granulomatous disease bilaterally. No acute pulmonary parenchymal or pleural abnormality. Moderate degenerative spondylosis with scoliosis convex right. Chronic posttraumatic changes in the distal right clavicle and the left acromioclavicular joint. XR/XR chest 1V portable [id number] IMPRESSION: No acute chest abnormality.
--- NOTE | 2022-02-05 14:55 | PM.DCS ---
Discharge Providers Date of Admission: 02/05/22 00:54 Date of Discharge: February 05, 2022 Attending Provider at Admission: Steven Christianson MD Attending Provider at Discharge: Chris Emerson Diagnoses at Discharge Discharge Diagnosis (1) Clostridium difficile infection: Status: Acute (2) Diarrhea: Status: Acute Reason for Visit Reason for Visit: Chills, D Hospital Course Hospital Course Pleasant 61-year-old lady was observed in the hospital after presenting with several episodes of diarrhea, she was concerned due to recent C. difficile infection, was concerned that she is again developing C. difficile and did not want to get more ill since she feels she waited too long last time to seek help. Stool studies were collected in the hospital. She received IV hydration. Hypertensive on presentation, received a dose of hydralazine, was started on lisinopril. Diarrhea appears to be overall improving, with small amount of semisolid/pasty stool this morning. Assess for C. difficile was negative. Stool culture, ova and parasites are pending. She has no nausea or vomiting. Tolerating oral intake. Discussed with her for now to avoid dairy for the next few weeks while she is recovering. Please follow-up her recovery, follow-up with stool culture and parasite studies. Received replacement of mild hypokalemia while in the hospital. Please reassess potassium level. Minimal pleuritic discomfort left side with deep inspiration, chest wall palpation, thought to be musculoskeletal, chest x-ray was obtained and unremarkable. No shortness of breath, no suggestion of symptoms of PE. [place] score. 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 Please follow-up for resolution of symptoms. Physical Exam Const: COMMON NORMALS: patient oriented x3 and alert GENERAL APPEARANCE: cooperative ORIENTATION/CONSCIOUSNESS: Yes awake HENMT: COMMON NORMALS: oropharynx normal Neck/C-Spine: COMMON NORMALS: no JVD Resp: COMMON NORMALS: normal respiratory effort and clear to auscultation bilaterally AUSCULTATION: clear to auscultation bilaterally Cardio: COMMON NORMALS: no JVD, regular rhythm, S1 normal heart sound present, S2 normal heart sound present and No murmurs present (Cardio) RHYTHM: regular rhythm HEART SOUNDS: S1 normal heart sound present and S2 normal heart sound present GI: COMMON NORMALS: Normal to inspection, nondistended, normoactive bowel sounds present, Soft to palpation and non-tender PALPATION: Yes Soft to palpation Extremity: COMMON NORMALS: no joint enlargement and no pedal edema Neuro: COMMON NORMALS: patient oriented x3 and moves all extremities SENSORIUM/ORIENTATION: Yes alert Skin: COMMON NORMALS: no rashes or lesions noted GENERAL SKIN EXAM: no rashes or lesions noted Discharge Data Studies Completed and Pending Completed Studies During Hospitalization Category Date Time Status CXRP [XR chest 1V portable [id number]] Routine Exams 02/05/22 13:07 Completed XR KUB portable [id number] Stat Exams 02/05/22 01:47 Completed Pending at discharge Category Date Time Status Stool Culture, Bacterial [Enteric Bacterial Panel by Lab 02/05/22 11:26 Ordered PCR] Routine Stool WBC [Lactoferrin] Routine Lab 02/05/22 11:00 Received stool Ova and Parasite [Enteric Parasite Panel by PCR] Lab 02/05/22 11:26 Ordered Routine Radiology Impressions KUB X-Ray 02/05/22 01:47 IMPRESSION: No acute findings. Chest X-Ray 02/05/22 13:07 IMPRESSION: No acute chest abnormality. Laboratory Results WBC 6.3 10^3/uL (4.0-10.0) 02/05/22 04:19 RBC 3.39 10^6/uL (4.1-5.3) L 02/05/22 04:19 Hgb 11.5 g/dL (11.5-15.3) 02/05/22 04:19 Hct 35.5 % (37.0-47.0) L 02/05/22 04:19 MCV 104.7 fl (81-99) H 02/05/22 04:19 MCH 33.9 pg (28.0-34.0) 02/05/22 04:19 MCHC 32.4 g/dL (30.0-36.0) 02/05/22 04:19 RDW 14.7 % (12.1-15.1) 02/05/22 04:19 Plt Count 231 10^3/cmm (130-400) 02/05/22 04:19 MPV 10.0 fL (7.4-10.4) 02/05/22 04:19 Neut % (Auto) 53.2 % 02/05/22 04:19 Lymph % (Auto) 37.6 % 02/05/22 04:19 [place] % (Auto) 7.8 % 02/05/22 04:19 Eos % (Auto) 0.6 % 02/05/22 04:19 Baso % (Auto) 0.6 % 02/05/22 04:19 Neut # (Auto) 3.35 10^3/uL (1.8-7.7) 02/05/22 04:19 Lymph # (Auto) 2.4 10^3/uL (0.8-4.8) 02/05/22 04:19 [place] # (Auto) 0.5 10^3/uL (0.2-0.9) 02/05/22 04:19 Eos # (Auto) 0.0 10^3/uL (0.0-0.8) 02/05/22 04:19 Baso # (Auto) 0.0 10^3/uL (0.0-0.1) 02/05/22 04:19 Nucleated RBC % (auto) 0 % 02/05/22 04:19 Nucleated RBCs # 0.0 /100WBC 02/05/22 04:19 Sodium 136 mmol/L (136-145) 02/05/22 04:19 Potassium 3.4 mmol/L (3.5-5.1) L 02/05/22 04:19 Chloride 98 mmol/L (98-107) 02/05/22 04:19 Carbon Dioxide 25 mmol/L (22-29) 02/05/22 04:19 Anion Gap 16.4 (5-19) 02/05/22 04:19 BUN 7 mg/dL (8-23) L 02/05/22 04:19 Creatinine 0.4 mg/dL (0.5-0.9) L 02/05/22 04:19 GFR Calculation 161.2 mL/min (90-130) H 02/05/22 04:19 Glucose 106 mg/dL (65-115) 02/05/22 04:19 Calculated Osmolality 280 mOsm/kg (285-295) L 02/05/22 04:19 Lactate 1.6 mmol/L (0.5-2.2) 02/05/22 04:58 Calcium 8.9 mg/dL (8.5-10.5) 02/05/22 04:19 Magnesium 1.6 mg/dL (1.7-2.3) L 02/05/22 04:19 Total Bilirubin 1.1 mg/dL (0.15-1.2) 02/04/22 22:45 AST 35 U/L (0-32) H 02/04/22 22:45 ALT 19 U/L (0-33) 02/04/22 22:45 Alkaline Phosphatase 85 U/L (35-105) 02/04/22 22:45 Creatine Kinase 41 U/L (26-192) 02/04/22 22:45 C-Reactive Protein 3.0 mg/L (0.0-4.9) 02/05/22 04:19 Total Protein 6.8 g/dL (6.6-8.7) 02/04/22 22:45 Albumin 4.0 g/dL (3.5-5.2) 02/04/22 22:45 Globulin 2.8 g/dL (1.3-4.6) 02/04/22 22:45 Lipase 11 U/L (13-60) L 02/04/22 22:45 Procalcitonin 0.03 ng/mL (0-0.5) 02/04/22 22:45 Urine Color Yellow (Yellow) 02/05/22 05:11 Urine Appearance Clear (CLEAR) 02/05/22 05:11 Urine pH 8 (5-7) H 02/05/22 05:11 Ur Specific [place] 1.010 (1.005-1.030) 02/05/22 05:11 Urine Protein Neg (Negative) 02/05/22 05:11 Urine Glucose (UA) Norm (Normal) 02/05/22 05:11 Urine Ketones Negative (Negative) 02/05/22 05:11 Urine Blood Trace (Negative) H 02/05/22 05:11 Urine Nitrate Negative (Negative) 02/05/22 05:11 Urine Bilirubin Neg (Negative) 02/05/22 05:11 Prot Sulfosalicylic Acd Negative (Negative) 02/05/22 05:11 Urine Urobilinogen 4 mg/dL (Negative) H 02/05/22 05:11 Ur Leukocyte Esterase Negative (Negative) 02/05/22 05:11 Urine RBC 0-4 /hpf (0-2) H 02/05/22 05:11 Urine WBC 0-4 /hpf (0-5) H 02/05/22 05:11 Ur Squamous Epith Cells 15-25 /hpf (0-5) H 02/05/22 05:11 Amorphous Sediment Not Reportable 02/05/22 05:11 Urine Bacteria 1+ /hpf (NONE) H 02/05/22 05:11 Urine Mucus 1+ /hpf 02/05/22 05:11 Vitals Last Vital Signs Temp 98.3 F 02/05/22 12:00 Pulse 79 02/05/22 12:00 Resp 16 02/05/22 12:00 BP 151/87 02/05/22 12:00 Pulse Ox 97 02/05/22 12:00 O2 Del Method 02/05/22 12:00 Discharge Plan Discharge Patient Disposition: Home Condition: Stable Prescriptions: New lisinopril 5 mg tablet 5 mg PO DAILY Qty: 90 0RF Continued multivitamin Tablet 1 tab PO DAILY PRN (Reason: unknown) Discharge Orders: Discharge Order (Routine); Ordered 02/05/22 Ordered By: Chris Emerson Referrals: Cathleen Kline FNP-C [Nurse Practitioner] - 02/14/22 10:20 am () Discharge Diet: As Directed Discharge Activity: Increase activity as tolerated Patient Instructions: C. Diff (Clostridioides Difficile) Infection (ED), Opioid Safety Activity Restrictions/Additional Instructions: Medications as directed. Make sure you are drinking plenty of fluids. A probiotic can help, these are available [id number]. Increasing your fiber intake can also help slow diarrhea. Please follow-up with your primary doctor for resolution of diarrhea. Your C. difficile test was negative. Please note additional stool studies are pending and will take some time, please have your primary doctor follow-up the results. You may be contacted in case you need additional medication. Return to the hospital if you experience fever, severe abdominal pain, inability to tolerate oral intake or other concerning symptoms. Limit dairy intake over the next 2 weeks. Continue to avoid unpasteurized dairy. Please measure blood pressures twice daily. Record values to bring to your appointment for reassessment of blood pressure elevation. Your chest x-ray was unremarkable. In case you experience any worse chest soreness, or persistent pain, difficulty breathing or any other concerning symptoms, please seek medical attention. Discharge Attestations Time Spent in Discharge Care*: greater than 30 min Quality Metrics Clinical Quality Measures [ No reported AMI, CVA or VTE this stay] Coding Level of Care Code Acute g [facility] note Diagnoses Clostridium difficile infection A49.8 Diarrhea R19.7
[2022-02-05] MEDS: diphenhydrAMINE 25 mg Capsule PO (15:20)
--- NOTE | 2022-02-05 16:11 | PC.NURSE ---
Discussed discharge follow up appointments, new medications and continued medications with patient. Verbalized understanding.
[2022-02-05 16:28] VITALS: BP 151/87; PULSE 79; RESP 16; TEMP 36.8; O2SAT 97
== END 2022-02-05 16:29 | disposition home or self-care (01) ==
LOC: ER 02-05 01:21 → MEDSURG 02-05 03:13
PROVIDERS: Admitting Provider Internal Medicine; Emergency Provider Emergency Medicine; Visit Provider Internal Medicine
DX: A04.71 Enterocolitis due to Clostridium difficile, recurrent (principal); E87.6 Hypokalemia; I10 Essential (primary) hypertension; E66.01 Morbid (severe) obesity due to excess calories; Z68.34 Body mass index [BMI] 34.0-34.9, adult; Z88.5 Allergy status to narcotic agent; Z88.1 Allergy status to other antibiotic agents
CPT/HCPCS: 71045; 74018; 80048; 80053; 81001; 82550; 83605; 83630; 83690; 83735; 84145; 85025; 86140; 87493; 87506; 96361; 96365; 96372; 96375; 99285; G0378; J0360; J1650; J3370; J3475; J7030

== ENCOUNTER → 2022-05-22 13:43 | Outpatient (BNVA) | payer BC, MEDICAID, SELFPAY | PROVIDERS: PCP Family Medicine; Visit Provider Nurse Practitioner Family | DX: I10 Essential (primary) hypertension (principal); N63.10 Unspecified lump in the right breast, unspecified quadrant; Z12.11 Encounter for screening for malignant neoplasm of colon; M51.36 Other intervertebral disc degeneration, lumbar region; M54.50 Low back pain, unspecified; G89.29 Other chronic pain; F41.9 Anxiety disorder, unspecified | CPT/HCPCS: 80053; 80061; 84443; 85025 ==

== ENCOUNTER 2022-06-04 12:21 | Outpatient (CLI) | payer BC, MEDICAID, SELFPAY ==
--- NOTE | 2022-06-04 13:20 | MM_ITS ---
WS: [id number] BILATERAL 3D TOMOSYNTHESIS DIGITAL SCREENING MAMMOGRAPHY WITH CAD CLINICAL INFORMATION: Screening HISTORY: Screening mammogram. No current complaints. COMPARISON: None. TECHNIQUE: Bilateral CC and MLO views. FINDINGS: Bilateral nipple piercings. Scattered fibroglandular densities bilaterally. Dense nodular breast tissue upper outer RIGHT breast near the 11:00 position with dense calcifications. Partially calcified lobulated nodule measures 15 m m. This is indeterminate and recommend further evaluation with RIGHT breast diagnostic mammography an d ultrasound. No available comparisons. LEFT breast is unremarkable.Vascular calcifications. MM/[place] [id number] IMPRESSION: BI-RADS: 0-Incomplete: Need additional imaging evaluation FOLLOW UP: Need Additional Imaging Recommend RIGHT breast diagnostic mammography and ultrasound for further evalua tion.
== END 2022-06-04 12:22 | disposition home or self-care (01) ==
LOC: RAD 12:22
PROVIDERS: PCP Nurse Practitioner Family; Visit Provider Nurse Practitioner Family
DX: Z12.31 Encounter for screening mammogram for malignant neoplasm of breast (principal)
CPT/HCPCS: 77062; 77063; 77067; G0279

== ENCOUNTER → 2022-07-24 09:32 | Outpatient (BNVA) | payer BC, MEDICAID, SELFPAY | PROVIDERS: PCP Nurse Practitioner Family; Visit Provider Nurse Practitioner Family | DX: M25.549 Pain in joints of unspecified hand (principal); I10 Essential (primary) hypertension; R32 Unspecified urinary incontinence; M25.561 Pain in right knee; R39.15 Urgency of urination; G89.29 Other chronic pain | CPT/HCPCS: 81000; 85651; 86140; 86160; 86162; 86235; 86255; 86376; 86431 ==

== ENCOUNTER 2022-07-26 13:32 | Outpatient (CLI) | payer MEDICARE, BC, MEDICAID, SELFPAY ==
--- NOTE | 2022-07-26 | MR_ITS ---
WS: [id number] MRI OF THE ABDOMEN WITHOUT AND WITH GADOLINIUM ENHANCEMENT. INDICATION: History of spleen surgery. Abnormal liver on ultrasound TECHNIQUE: Coronal single shot, axial SSFP, axial T2 fat sat, dual phase echo imaging, multiplanar po st gadolinium imaging with fat saturation technique FINDINGS: History of prior partial splenectomy. Residual spleen with small splenules visualized in th e LEFT upper quadrant. Liver is normal in appearance. No suspicious liver lesions. Normal portal vein and splenic vein. Gallbladder is contracted but otherwise normal in appearance. Normal renal parenchymal enhancement. No hydronephrosis. Normal caliber upper abdominal aorta. Celiac and SMA are patent. Common bile duct appears normal. Visualized pancreas is normal in appearance. Sm all esophageal hiatal hernia. Adrenal glands are normal.Partially visualized T2 hyperintense and enhancing nodule measuring 1.7 cm upper outer RIGHT breast laterally. Patient scheduled to return July 30, 2022 for diagnostic mammog ruben and ultrasound. Enhancing nodule measuring 1.7 cm has a suspicious appearance. MR/MR abdomen wo/w con* [id number] IMPRESSION: Some images degraded by patient motion 1. History of prior partial splenectomy. Residual spleen in the LEFT upper constantin drant with a few surrounding splenules. 2. Liver is normal in appearance. No intrahepatic biliary ductal dilatation. N o suspicious liver lesions. 3. Gallbladder is contracted but otherwise normal in appearance. 4. Normal common bile duct. 5. No hydronephrosis in either kidney. 6. Small esophageal hiatal hernia. 7. Partially visualized T2 hyperintense and enhancing dense parenchymal tissue upper outer RIGHT breast laterally. Patient scheduled to return July 30, 2022 for diagnostic mammography and ultrasound. Enhancing nodule measuring 1.7 cm h as a suspicious appearance.
--- NOTE | 2022-07-26 | MR_ITS ---
WS: [id number] MRI LUMBAR SPINE NONCONTRAST TECHNIQUE: Sagittal T1, T2 and STIR imaging. Axial T1 and T2 imaging. CLINICAL INFORMATION: LBP COMPARISON: None. FINDINGS: Mild lumbar curve. No acute compression. Disc bulging worse L4-L5 with endplate degenerative changes. No high-grade central canal stenosis. L1-L2: Mild facet arthropathy. Spinal canal and foramen are patent. L2-L3: Mild annular bulging. Mild facet arthropathy. Spinal canal and foramen are patent. L3-L4: Mild annular bulging. Slight effacement of ventral thecal sac. Mild facet arthropathy. Spinal canal and foramen are patent. L4-L5: Disc osteophyte complex with endplate ridging. Mild facet arthropathy. Small RIGHT foraminal p rotrusion with mild RIGHT foraminal narrowing. Slight contact of the exiting RIGHT L4 nerve root. Mil d LEFT foraminal narrowing. L5-S1: LEFT eccentric disc osteophyte complex impinges the exiting LEFT L5 nerve root with moderate L EFT foraminal narrowing. Impingement on the exiting LEFT L5 nerve root. RIGHT foramen is patent. Mode rate facet arthropathy. Visualized pelvic bony structures: Normal. Paravertebral soft tissues: Normal. MR/MR lumbar spine wo con* [id number] IMPRESSION: 1. Mild lumbar curve. No acute compression. No high-grade central canal stenos is. 2. RIGHT foraminal protrusion L4-L5 impinges the exiting RIGHT L4 nerve root w ith mild RIGHT foraminal narrowing. Correlation RIGHT L4 nerve root symptoms. 3. LEFT L5-S1 foraminal protrusion impinges the exiting LEFT L5 nerve root wit h moderate LEFT foraminal narrowing.Correlation LEFT L5 nerve root symptoms. 4. Moderate facet arthropathy worse at LEFT L5-S1. 5. Disc space narrowing worse L4-L5 with endplate degenerative changes.
[2022-07-26] MEDS: gadobenate dimeglumine 20 mL vial IV (15:01)
== END 2022-07-26 13:33 | disposition home or self-care (01) ==
LOC: RAD 13:34
PROVIDERS: PCP Nurse Practitioner Family; Visit Provider Nurse Practitioner Family
DX: R93.2 Abnormal findings on diagnostic imaging of liver and biliary tract (principal); K44.9 Diaphragmatic hernia without obstruction or gangrene; N63.0 Unspecified lump in unspecified breast; M47.816 Spondylosis without myelopathy or radiculopathy, lumbar region; M48.061 Spinal stenosis, lumbar region without neurogenic claudication; M51.26 Other intervertebral disc displacement, lumbar region
CPT/HCPCS: 72148; 74183; A9577

== ENCOUNTER 2022-07-30 12:04 | Outpatient (CLI) | payer MEDICARE, BC, MEDICAID, SELFPAY ==
--- NOTE | 2022-07-30 12:56 | MM_ITS ---
WS: [id number] RIGHT 3D TOMOSYNTHESIS DIGITAL MAMMOGRAPHY WITH CAD CLINICAL INFORMATION: ABNORMAL MAMM COMPARISON: June 04, 2022 TECHNIQUE: 3 views of the right breast were obtained. FINDINGS: Scattered fibroglandular densities of the right breast. Dense nodular breast tissue upper outer RIGHT breast near the 11:00 position with dense calcifications. Partially calcified lobulated nodule measu res 15 mm. This is persistent on today's studies. Ultrasound described below. Vascular calcification. ULTRASOUND BREAST RIGHT TECHNIQUE: Ultrasound right breast focused area of concern. CLINICAL INFORMATION: ABNORMAL MAMMO FINDINGS: Ultrasound RIGHT breast at the 11:00 position 4 cm from the nipple. Solid lobulated well-circumscribe d lesion at the 11:00 position 4 cm from the nipple with adjacent dense calcification as seen on mamm ography. Lesion measures 2.3 x 1.7 x 1.1 cm Associated vascularity. Mass is indeterminant and recomme nd further evaluation with ultrasound-guided biopsy. MM/[place] [id number] IMPRESSION: BI-RADS: 4-Suspicious Finding-Biopsy Should Be Considered FOLLOW UP: US Guided Biopsy Recommended Recommend ultrasound-guided biopsy RIGHT breast lesion
== END 2022-07-30 12:05 | disposition home or self-care (01) ==
PROVIDERS: PCP Nurse Practitioner Family; Visit Provider Nurse Practitioner Family
DX: R92.8 Other abnormal and inconclusive findings on diagnostic imaging of breast (principal)
CPT/HCPCS: 76642; 77061; G0279

== ENCOUNTER → 2022-08-15 09:17 | Outpatient (BNVA) | payer MEDICARE, MEDICAID, SELFPAY | PROVIDERS: PCP Nurse Practitioner Family; Visit Provider Nurse Practitioner Family | DX: G89.29 Other chronic pain (principal); M25.561 Pain in right knee; M19.90 Unspecified osteoarthritis, unspecified site; R22.30 Localized swelling, mass and lump, unspecified upper limb; M25.539 Pain in unspecified wrist | CPT/HCPCS: 73110; 73562 ==

== ENCOUNTER 2022-10-18 14:51 | Outpatient (CLI) | payer MEDICARE, MEDICAID, SELFPAY ==
--- NOTE | 2022-10-18 15:15 | US_ITS ---
WS: [id number] ULTRASOUND SOFT TISSUES LEFT wrist HISTORY: R22.30 - Localized swelling, mass and lump COMPARISON: Wrist radiograph 08/15/2022 TECHNIQUE: 2-D and color Doppler imaging is submitted. Ultrasound directed to the anterior LEFT wrist at the palpable site. There is a cystic mass with thro ugh transmission along the volar surface of the wrist measuring 0.7 x 0.8 x 6.6 cm. No solid componen t. No increased vascularity. There are probably a few low-level echoes also present. US/US soft tissue/extremity [id number] IMPRESSION: Cystic mass along the volar surface of the wrist corresponding to the palpable abnormality. Most likely this is a ganglion.
== END 2022-10-18 14:52 | disposition home or self-care (01) ==
LOC: RAD 15:00
PROVIDERS: PCP Nurse Practitioner Family; Visit Provider Nurse Practitioner Family
DX: R22.32 Localized swelling, mass and lump, left upper limb (principal)
CPT/HCPCS: 76882

== ENCOUNTER → 2022-11-13 13:49 | Outpatient (BNVA) | payer MEDICARE, MEDICAID, SELFPAY | PROVIDERS: PCP Nurse Practitioner Family; Visit Provider Nurse Practitioner Family | DX: I10 Essential (primary) hypertension (principal) | CPT/HCPCS: 80053; 80061; 84443; 85025 ==

== ENCOUNTER 2022-11-22 07:38 | Observation (INO) | payer MEDICARE, MEDICAID, SELFPAY ==
[2022-11-22] VITALS (116 sets, daily range): BP systolic 123–175; BP diastolic 61–118; PULSE 56–115; RESP 13–36; TEMP 36.6–37; O2SAT 90–100; BMI 32.4
--- NOTE | 2022-11-22 07:45 | XR_ITS ---
WS: [id number] PORTABLE CHEST HISTORY: chest pain COMPARISON: 02/05/2022, 06/11/2021 Mild pulmonary hyperinflation. There is new slight hazy attenuation and increasing opacification over the RIGHT hilum. Hazy opacification extends into the medial RIGHT lower lung field. No discrete mass or nodule. These are new findings since 06/11/2021 and 02/05/2022. No pleural effusion or pneumothorax . Cardiac size: Normal. Mediastinum/Aorta: Normal mediastinum. No osseous abnormality seen. XR/XR chest 1V portable [id number] IMPRESSION: 1. Increased slight opacification centered over the RIGHT hilum and medial RIG HT lower lung field. Recommend follow-up chest CT with IV contrast. Differentia l includes pneumonia, pneumonitis but due to the fullness at the RIGHT hilum ly mph nodes to be excluded. 2. No dense consolidation or pneumonia.
[2022-11-22] MEDS: aspirin 81 mg Chew Tablet 324 MG PO (07:56)
--- NOTE | 2022-11-22 07:56 | ECG_ITS ---
[facility] Test Date: 2022-11-22 Pat Name: Denia Espino Department: Room: Gender: Female [employer]: : 1960 Requested By: Jitendra Caldwell Order Number: [id number] Aleksandra MD: Jada Seymour M.D. Measurements Intervals [place] Rate: 105 P: 65 [place]: 162 QRS: 23 QRSD: 94 T: 69 QT: 361 QTc: 478 Interpretive Statements SINUS TACHYCARDIA POSSIBLE LEFT ATRIAL ENLARGEMENT [-0.1mV P-WAVE IN V1/V2] ABNORMAL RHYTHM ECG Compared to ECG 06/12/2021 03:35:54 Atrial fibrillation no longer present T-wave abnormality no longer present Electronically Signed On 11-22-2022 11:00:35 CDT by Jada Seymour M.D. [id number]
[2022-11-22 08:08] LABS: Basophils % 0.3 %; Eosinophils % 0.2 %; Hematocrit 36.5 % (37.0-47.0); Hemoglobin 12.4 g/dL (11.5-15.3); Lymphocytes # 1.9 10^3/uL (0.8-4.8); Lymphocytes % 19.4 %; Mean Corpuscular Hemoglobin 34.3 pg (28.0-34.0); Mean Corpuscular Volume 100.8 fl (81-99); Mean Platelet Volume 9.1 fL (7.4-10.4); Monocytes # 0.7 10^3/uL (0.2-0.9); Monocytes % 7.1 %; Neutrophils # 7.09 10^3/uL (1.8-7.7); Neutrophils % 72.6 %; Nucleated Red Blood Cells % 0 %; Platelet Count 282 10^3/cmm (130-400); Red Blood Count 3.62 10^6/uL (4.1-5.3); Red Cell Distribution Width 14.3 % (12.1-15.1); White Blood Count 9.8 10^3/uL (4.0-10.0)
--- NOTE | 2022-11-22 08:21 | ED_ITS ---
HPI - Chest Pain General: Chief Complaint: Chest Pain Stated Complaint: chest pain Time Seen by Provider: 11/22/22 07:45 Source: patient Mode of arrival: ambulatory History of Present Illness: 62-year-old female presents to the emergency room with complaints of left-sided chest pain that began yesterday afternoon. She intermittently been short of breath. She had been spending a lot of time outside also had several alcoholic beverages she did not feel she particularly was intoxicated but began to have some chest discomfort off and on does not really radiate into her neck back or arms. She has a history of hypertension. She had an angiogram done in May 2021 which was normal, no evidence of any significant coronary artery disease. MD complaint: chest pain Onset (ago): day(s) (1) Timing of current episode: episodic Prior episodes: Yes Onset: during exertion Pain location: substernal Pain radiation: none Severity: mild Relieving factors: nothing Exacerbating factors: nothing Associated symptoms: Deny abdominal pain, diaphoresis, dyspnea, fever(s), leg edema, nausea, palpitations, sense of impending doom, syncope or vomiting Treatment prior to arrival: none Review of Systems Const: Denies: fever(s) or diaphoresis ENMT: Denies: throat pain, ear or mastoid pain, nasal discharge or nasal congestion Card: Denies: palpitations or syncope Resp: Denies: dyspnea GI: Denies: abdominal pain, nausea or vomiting : Denies: flank pain, difficulty voiding, dysuria, urinary frequency or urinary urgency Skin/Breast: Denies: rash or pruritus [facility] ED PFSH: Medical History History of hypertension Morbid obesity Surgical History History of right hip replacement Status post splenectomy Family History Mother CAD (coronary artery disease) Father Stroke Social History Smoking and tobacco status: never smoked Alcohol intake: never Substance/Drug Use: never Lives independently: Yes Household members: none Marital status: Physical Exam Const: GENERAL APPEARANCE: cooperative and comfortable ORIENTATION /CONSCIOUSNESS: Yes awake, Yes oriented to person, Yes oriented to place and Yes oriented to time HENMT: COMMON NORMALS: normocephalic, atraumatic and hearing grossly normal bilaterally HEAD & SCALP: normocephalic and atraumatic Resp: COMMON NORMALS: normal respiratory effort, No retractions, No use of accessory muscles and clear to auscultation bilaterally AUSCULTATION: clear to auscultation bilaterally Cardio: COMMON NORMALS: regular rate, regular rhythm and No murmurs present (Cardio) RATE: regular rate RHYTHM: regular rhythm GI: COMMON NORMALS: Soft to palpation and No hepatosplenomegaly present AUSCULTATION: Yes normoactive bowel sounds PALPATION: Yes Soft to palpation, No Tenderness to palpation present (GI), No Guarding due to palpation present (GI) and Yes No hepatosplenomegaly present Extremity: COMMON NORMALS: normal to inspection, capillary refill normal, no clubbing, cyanosis or edema, no calf tenderness and no pedal edema Neuro: SENSORIUM/ORIENTATION: Yes oriented to person, Yes oriented to place and Yes oriented to time Skin: COMMON NORMALS: no rashes or lesions noted GENERAL SKIN EXAM: no rashes or lesions noted Course Vital Signs: Vital signs: Vital Signs Temperature 98.5 F 11/22/22 07:52 Pulse Rate 100 11/22/22 10:55 Respiratory Rate 18 11/22/22 10:55 Blood Pressure 169/99 11/22/22 10:55 Pulse Oximetry 96 11/22/22 10:55 Oxygen Delivery Me thod Room Air 11/22/22 07:46 MDM - Chest Pain Medical Decision Making Elevated troponin on initial lab over 200. Patient had normal angiography 1-1/2 years ago. There is also slight abnormality on the chest x-ray. She is not having any hypoxia. Will admit for further evaluation of elevated troponin. She also need further evaluation of the chest x-ray finding discussed Dr. Clark cardiology consulted orders written Medical Records I reviewed the patient's medical records. Lab Data I reviewed the patient's lab results. 11/22/22 08:02 11/22/22 08:02 Radiology Impressions Chest X-Ray 11/22/22 07:45 IMPRESSION: 1. Increased slight opacification centered over the RIGHT hilum and medial RIGHT lower lung field. Recommend follow-up chest CT with IV contrast. Differential includes pneumonia, pneumonitis but due to the fullness at the RIGHT hilum lymph nodes to be excluded. 2. No dense consolidation or pneumonia. Laboratory Results WBC 9.8 10^3/uL (4.0-10.0) 11/22/22 08:02 RBC 3.62 10^6/uL (4.1-5.3) L 11/22/22 08:02 Hgb 12.4 g/dL (11.5-15.3) 11/22/22 08:02 Hct 36.5 % (37.0-47.0) L 11/22/22 08:02 MCV 100.8 fl (81-99) H 11/22/22 08:02 MCH 34.3 pg (28.0-34.0) H 11/22/22 08:02 MCHC 34.0 g/dL (30.0-36.0) 11/22/22 08:02 RDW 14.3 % (12.1-15.1) 11/22/22 08:02 Plt Count 282 10^3/cmm (130-400) 11/22/22 08:02 MPV 9.1 fL (7.4-10.4) 11/22/22 08:02 Neut % (Auto) 72.6 % 11/22/22 08:02 Lymph % (Auto) 19.4 % 11/22/22 08:02 [place] % (Auto) 7.1 % 11/22/22 08:02 Eos % (Auto) 0.2 % 11/22/22 08:02 Baso % (Auto) 0.3 % 11/22/22 08:02 Neut # (Auto) 7.09 10^3/uL (1.8-7.7) 11/22/22 08:02 Lymph # (Auto) 1.9 10^3/uL (0.8-4.8) 11/22/22 08:02 [place] # (Auto) 0.7 10^3/uL (0.2-0.9) 11/22/22 08:02 Eos # (Auto) 0.0 10^3/uL (0.0-0.8) 11/22/22 08:02 Baso # (Auto) 0.0 10^3/uL (0.0-0.1) 11/22/22 08:02 Nucleated RBC % (auto) 0 % 11/22/22 08:02 Nucleated RBCs # 0.0 /100WBC 11/22/22 08:02 Sodium 137 mmol/L (136-145) 11/22/22 08:02 Potassium 4.3 mmol/L (3.5-5.1) 11/22/22 08:02 Chloride 99 mmol/L (98-107) 11/22/22 08:02 Carbon Dioxide 20 mmol/L (22-29) L 11/22/22 08:02 Anion Gap 22.3 (5-19) H 11/22/22 08:02 BUN 9 mg/dL (8-23) 11/22/22 08:02 Creatinine 0.5 mg/dL (0.5-0.9) 11/22/22 08:02 GFR Calculation 124.2 mL/min (90-130) 11/22/22 08:02 Glucose 143 mg/dL (65-115) H 11/22/22 08:02 Calculated Osmolality 285 mOsm/kg (285-295) 11/22/22 08:02 Calcium 9.1 mg/dL (8.5-10.5) 11/22/22 08:02 Total Bilirubin 1.3 mg/dL (0.15-1.2) H 11/22/22 08:02 AST 37 U/L (0-32) H 11/22/22 08:02 ALT 20 U/L (0-33) 11/22/22 08:02 Alkaline Phosphatase 74 U/L (35-105) 11/22/22 08:02 Troponin T Baseline 221 ng/L (0-10) H* 11/22/22 08:02 Total Protein 6.6 g/dL (6.6-8.7) 11/22/22 08:02 Albumin 4.4 g/dL (3.5-5.2) 11/22/22 08:02 Globulin 2.2 g/dL (1.3-4.6) 11/22/22 08:02 Discharge Plan Discharge Patient Disposition: Admitted As Inpatient Admit Provider: William Clark Clinical Impression: Elevated troponin, Abnormal chest x-ray Condition: Stable Coding Level of Care Code ED Accounts Manager for Louie Reyes
[2022-11-22 08:34] LABS: Alanine Aminotransferase 20 U/L (0-33); Albumin Level 4.4 g/dL (3.5-5.2); Alkaline Phosphatase 74 U/L (35-105); Anion Gap 22.3 (5-19); Aspartate Amino Transferase 37 U/L (0-32); Blood Urea Nitrogen 9 mg/dL (8-23); Calcium 9.1 mg/dL (8.5-10.5); Carbon Dioxide 20 mmol/L (22-29); Chloride 99 mmol/L (98-107); Globulin 2.2 g/dL (1.3-4.6); Glomerular Filtration Rate 124.2 mL/min (90-130); Glucose 143 mg/dL (65-115); Osmolality Calculated 285 mOsm/kg (285-295); Potassium 4.3 mmol/L (3.5-5.1); Sodium 137 mmol/L (136-145); Total Bilirubin 1.3 mg/dL (0.15-1.2); Total Protein 6.6 g/dL (6.6-8.7)
[2022-11-22 08:38] LABS: Troponin(5th) Baseline 221 ng/L (0-10)
[2022-11-22] MEDS: sodium chloride 0.9% 1,000 ML 999 ML IV (08:45)
[2022-11-22] MEDS: nitroglycerin 1 gm/inch oint Pkt 1 INCH TOPICAL (08:56)
[2022-11-22] MEDS: enoxaparin 80 mg/0.8 mL Syringe SUBCUT ×2 (09:40→20:35)
[2022-11-22] MEDS: metoprolol tartrate 25 mg Tablet PO (09:41)
[2022-11-22] MEDS: metoprolol tartrate 1 mg/1 mL SDV 5 mL 2.5 MG IVP (09:41)
--- NOTE | 2022-11-22 09:46 | ECG_ITS ---
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 Measurements Intervals [place] Rate: 90 P: 71 DE: 157 QRS: 50 QRSD: 93 T: 77 QT: 389 QTc: 478 Interpretive Statements SINUS RHYTHM POSSIBLE LEFT ATRIAL ENLARGEMENT [-0.1mV P-WAVE IN V1/V2] Compared to ECG 11/22/2022 07:56:34 Sinus tachycardia no longer present Electronically Signed On 11-22-2022 11:22:48 CDT by Jada Seymour M.D. [id number]
--- NOTE | 2022-11-22 09:58 | PM.CONSULT ---
Providers/Reason For Consult Consulting Physician/Specialty*: Roc Rivera MD/ Cardiology Reason for Consult*: Chest pain Requesting Physician: Dr Rosas Attending Physician: DR Clark Primary Care Provider: REBA Deleon History of Present Illness History of Present Illness Denia Espino is a 62 year old female with past medical history of heavy alcohol abuse who presented to hospital with on and off chest pain for 1 day. Feels like Pressure. Gets worse with palpitations. Telemetry not showing any arrhythmias. However she had sinus tachycardia. Initial troponin was 221 that has trended down. EKG showing sinus tachycardia with no significant ST-T wave changes. She had coronary angiogram last year that did not reveal significant CAD. Patient had heavy alcohol abuse last night. Review of Systems General: Reports: 10 or more systems reviewed and unremarkable except in HPI and below Card: Reports: chest pain Resp: Denies: dyspnea GI: Reports: nausea and vomiting; Denies: abdominal pain or melena Medications/Allergies Home Medications Medication Instructions Recorded Confirmed Last Taken Type aspirin 81 mg capsule 162 mg PO DAILY 07/09/22 11/22/22 07/08/22 History cholecalciferol (vitamin D3) 10 10 mcg PO DAILY 07/09/22 11/22/22 11/21/22 History mcg (400 unit) tablet (Vitamin D3) docusate sodium 50 mg capsule 200 mg PO ONCE #4 caps 07/09/22 11/22/22 Unknown Rx milk thistle 500 mg capsule 500 mg PO DAILY 07/09/22 11/22/22 07/08/22 History multivitamin 1 tab PO DAILY 07/09/22 11/22/22 11/21/22 History omega-3 fatty acids 1,000 mg PO DAILY 07/09/22 11/22/22 11/21/22 History vitamin A 10,000 unit tablet 10,000 unit PO DAILY 07/09/22 11/22/22 11/21/22 History vitamin B complex 1 cap PO DAILY 07/09/22 11/22/22 11/21/22 History bilateral wrist brace #1 ea 08/20/22 11/22/22 Unknown Rx cyclobenzaprine 10 mg tablet 10 mg PO BID PRN muscle spasm 30 11/13/22 11/22/22 Unknown Rx days #60 tabs losartan 25 mg tablet 25 mg PO DAILY #30 tabs 11/13/22 11/22/22 11/22/22 Rx oxybutynin chloride 5 mg tablet 5 mg PO BID #60 tabs 11/13/22 11/22/22 11/21/22 Rx magnesium 200 mg tablet 200 mg PO DAILY 11/22/22 11/22/22 11/21/22 History zinc acetate 25 mg (zinc) capsule 25 mg PO DAILY 11/22/22 11/22/22 11/21/22 History Allergies Allergy/AdvReac Type Severity Reaction Status Date / Time cephalexin [From Keflex] Allergy ADR-Nausea Verified 11/22/22 09:33 hydrocodone [From Vicodin] Allergy ADR-Nausea Verified 11/22/22 09:33 propoxyphene [From Darvon] Allergy ADR-Nausea Verified 11/22/22 09:33 zolpidem [From Ambien] Allergy ADR-Agitate Verified 11/22/22 09:33 d Current Medications Generic Name Dose Route Start Last Admin Trade Name Freq PRN Reason Stop Dose Admin Nitroglycerin 1 inch 11/22/22 08:45 11/22/22 08:56 Nitroglycerin 1 Gm/Inch Oint Pkt TOPICAL 1 inch ONCE JOSEF Administration PFSH Acute PFSH: Medical History History of hypertension Morbid obesity Surgical History History of right hip replacement History of shoulder surgery History of surgery on lower extremity Status post splenectomy Family History Mother CAD (coronary artery disease) Father Stroke Social History Smoking and tobacco status: never smoked Alcohol intake: never Substance/Drug Use: never Lives independently: Yes Household members: none Marital status: Vitals/I&O/Wt Last Vital Signs Temp 98.5 F 11/22/22 07:52 Pulse 101 H 11/22/22 08:56 Resp 18 11/22/22 07:46 BP 156/101 11/22/22 08:56 Pulse Ox 98 11/22/22 07:46 O2 Del Method Room Air 11/22/22 07:46 Weight last 48 hrs Weight 183 lb Physical Exam Narrative: GENERAL: Patient is alert, awake and oriented x3. [] NECK: No jugular vein distension. [] HEENT: No cyanosis. No icterus. No pallor. [] HEART: Regular S1 and S2. No murmur, rub or gallop. [] LUNGS: Clear to auscultate bilaterally. [] CENTRAL NERVOUS SYSTEM: Grossly nonfocal. [] EXTREMITIES: Lower extremities with no edema Data 11/23/22 04:39 11/23/22 04:39 A&P Assessment and plan (1) Chest pain: Qualifiers: Chest pain type: unspecified Qualified Code(s): R07.9 - Chest pain, unspecified (2) Elevated troponin: Plan Patient has presented with chest pain that has both typical and atypical features. Last year cardiac catheterization was normal. Troponins were high but have trended down since. No longer having chest pain. We will plan on obtaining stress test and coronary angiogram if significant area of ischemia is seen. Low-sodium diet and exercise recommended Thank you for involving us with care of this patient. Please call questions. Consult Attestations Medical Necessity Statement: Care expected to cross 2 midnights. Coding Level of Care Code Acute Code for [facility] Diagnoses Chest pain R07.9 Chest pain type: unspecified Elevated troponin R77.8
[2022-11-22 11:03] LABS: Troponin 5 2HR 203.8 ng/L (0-10); Troponin 5 2HR Delta -17.2 ABS# (0-10)
[2022-11-22] MEDS: cyclobenzaprine 10 mg Tablet PO ×2 (12:23→20:34)
--- NOTE | 2022-11-22 14:09 | PM.HP ---
Providers/Chief Complaint Admitting Physician: William Clark MD Primary Care Provider: REBA Deleon Chief Complaint: chest pain History of Present Illness Denia Espino is a 62 year old female presenting to the emergency department with complaints of chest pain. She believes this started yesterday afternoon. It is not exertional. It is waxed and waned somewhat. She had 1 episode of vomiting and is slightly nauseous. She has had some palpitations. She reports on Saturday, she drank quite heavily. Saturday she worked in the heat, and was worried she may have been become dehydrated. She relates the discomfort is a pressure feeling like a brick on her chest. No significant radiation. Had an angiogram in May, that was normal and an echo at that same time. She is still having discomfort. No significant pleuritic component to the discomfort. Review of Systems General: Reports: 10 or more systems reviewed and unremarkable except in HPI and below Card: Reports: chest pain Resp: Denies: dyspnea GI: Reports: nausea and vomiting; Denies: abdominal pain or melena Medications/Allergies Home Medications Medication Instructions Recorded Confirmed Last Taken Type aspirin 81 mg capsule 162 mg PO DAILY 07/09/22 11/22/22 07/08/22 History cholecalciferol (vitamin D3) 10 10 mcg PO DAILY 07/09/22 11/22/22 11/21/22 History mcg (400 unit) tablet (Vitamin D3) docusate sodium 50 mg capsule 200 mg PO ONCE #4 caps 07/09/22 11/22/22 Unknown Rx milk thistle 500 mg capsule 500 mg PO DAILY 07/09/22 11/22/22 07/08/22 History multivitamin 1 tab PO DAILY 07/09/22 11/22/22 11/21/22 History omega-3 fatty acids 1,000 mg PO DAILY 07/09/22 11/22/22 11/21/22 History vitamin A 10,000 unit tablet 10,000 unit PO DAILY 07/09/22 11/22/22 11/21/22 History vitamin B complex 1 cap PO DAILY 07/09/22 11/22/22 11/21/22 History bilateral wrist brace #1 ea 08/20/22 11/22/22 Unknown Rx cyclobenzaprine 10 mg tablet 10 mg PO BID PRN muscle spasm 30 11/13/22 11/22/22 Unknown Rx days #60 tabs losartan 25 mg tablet 25 mg PO DAILY #30 tabs 11/13/22 11/22/22 11/22/22 Rx oxybutynin chloride 5 mg tablet 5 mg PO BID #60 tabs 11/13/22 11/22/22 11/21/22 Rx magnesium 200 mg tablet 200 mg PO DAILY 11/22/22 11/22/22 11/21/22 History zinc acetate 25 mg (zinc) capsule 25 mg PO DAILY 11/22/22 11/22/22 11/21/22 History Allergies Allergy/AdvReac Type Severity Reaction Status Date / Time cephalexin [From Keflex] Allergy ADR-Nausea Verified 11/22/22 09:33 hydrocodone [From Vicodin] Allergy ADR-Nausea Verified 11/22/22 09:33 propoxyphene [From Darvon] Allergy ADR-Nausea Verified 11/22/22 09:33 zolpidem [From Ambien] Allergy ADR-Agitate Verified 11/22/22 09:33 d PFSH Acute PFSH: Medical History History of hypertension Morbid obesity Surgical History History of right hip replacement History of shoulder surgery History of surgery on lower extremity Status post splenectomy Family History Mother CAD (coronary artery disease) Father Stroke Social History Smoking and tobacco status: never smoked Alcohol intake: never Substance/Drug Use: never Lives independently: Yes Household members: none Marital status: Vitals/I&O/Wt Last Vital Signs Temp 98.5 F 11/22/22 07:52 Pulse 100 11/22/22 10:55 Resp 18 11/22/22 10:55 BP 169/99 11/22/22 10:55 Pulse Ox 96 11/22/22 10:55 O2 Del Method Room Air 11/22/22 10:26 11/21/22 11/22/22 11/22/22 22:59 06:59 14:59 Intake Total 1000 / 1000 Balance 1000 / 1000 Weight last 48 hrs Weight 83.007 kg Physical Exam Narrative: General exam is a female, in no distress. HEENT: Atraumatic and normocephalic. Oropharynx clear. Neck is supple no lymphadenopathy or thyromegaly Cardiovascular regular rate and rhythm, no murmur, no S3 or S4 Lungs clear no wheezing or crackles Abdomen is soft with positive bowel sounds. No obvious organomegaly exams deferred Extremities no sinus clubbing or edema, cap refill brisk Skin no rash Neuro no focal deficits. Data 11/22/22 08:02 11/22/22 08:02 Other Labs: MCV 100.8 LFTs demonstrate a bilirubin of 1.3, AST of 37. ALT and alk phos are normal Troponin 221 with repeat of 203 Albumin, calcium are within normal limits TSH recently done was normal X-ray by my read, I agree with slight right hilum fullness as read by radiology. EKG sinus tachycardia with heart rate of 105, normal axis, no acute changes A&P Assessment and plan (1) Chest pain: Patient presents with chest discomfort, and elevated troponin. This is concerning for cardiac etiology, yet the patient had a negative angiogram May 2021. She also had an episode of rather heavy drinking, and feelings of palpitations. This could certainly play a role. She was fully anticoagulated in the emergency department, and nitroglycerin ointment placed. Add Protonix Secondary to abnormal x-ray go ahead and obtain CT of chest with contrast. No angiogram is planned today. This could be related to chest discomfort Telemetry Echocardiogram Aspirin daily Hold any further beta-leah, nuclear stress test planned for tomorrow Qualifiers: Chest pain type: unspecified Qualified Code(s): R07.9 - Chest pain, unspecified (2) Abnormal chest x-ray: Obtain CT of chest with contrast Plan Multiple other medical problems as outlined in past medical history Full code Lovenox will suffice for DVT prophylaxis Attestations Medical Necessity Statement*: Will need less than 2 midnight stay for evaluation of chest discomfort Diagnoses Chest pain R07.9 Chest pain type: unspecified Abnormal chest x-ray R93.89 Time Spent (min) 44
--- NOTE | 2022-11-22 14:30 | USCV_ITS ---
Denia Espino Age: 62 Gender: F : 1960 Exam Date: 11/22/2022 15:54 Ordering Phys: William Clark MD Technologist: Antonio Becker [place] [facility] [place]: BP: 158 / 108 HR: 51 Rhythm: Sinus Technical Quality: Adequate MEASUREMENTS (Male / Female) Normal Values 2D ECHO LV Diastolic Diameter PLAX 4.5 cm 4.2 - 5.9 / 3.9 - 5.3 cm LV Systolic Diameter PLAX 3.8 cm IVS Diastolic Thickness 1.2 cm 0.6 - 1.0 / 0.6 - 0.9 cm IVS Systolic Thickness 1.4 cm LVPW Diastolic Thickness 1.2 cm 0.6 - 1.0 / 0.6 - 0.9 cm LVPW Systolic Thickness 1.4 cm LVOT Diameter 2.0 cm LV Ejection Fraction 2D Teich 24.4 % LV Ejection Fraction MOD 2C 64.6 % LV Ejection Fraction 2C AL 64.8 % LA Diameter 3.8 cm IVC Diameter 1.3 cm M-MODE Aortic Annulus Diameter 2.8 cm LA Ao Ratio MM 1.2 MV E Point Septal Separation 1.6 cm DOPPLER AV Peak Velocity 110.0 cm/s LVOT Peak Velocity 96.0 cm/s AV Area Cont Eq vti 3.0 cm squared AV Area Cont Eq pk 2.9 cm squared MV Area PHT 5.0 cm squared Mitral E to A Ratio 1.3 MV E' Velocity 58.0 cm/s Mitral E to MV E' Ratio 12.0 Mitral E to LV E' Lateral Ratio 11.5 Mitral E to LV E' Septal Ratio 12.6 TR Peak Velocity 145.0 cm/s TR Peak Gradient 8.4 mmHg TV Peak E Velocity 80.0 cm/s Right Atrial Pressure 3.0 mmHg Pulmonary Artery Systolic Pressu 11.4 mmHg RV Acceleration Time 0.1 s FINDINGS Left Ventricle Left ventricle is normal in size. LV systolic function is normal with EF of 60 to 65%. No regional wall motion abnormalities are seen. Right Ventricle Normal in size and function Right Atrium Normal in size Left Atrium Normal in size Mitral Valve Structurally normal mitral valve. Moderate mitral regurgitation. Aortic Valve Grossly normal. No significant stenosis. Trace aortic regurgitation. Tricuspid Valve Mild tricuspid regurgitation. Pulmonary artery systolic pressure is normal. Pulmonic Valve Not well visualized Pericardium Normal Aorta Normal in size IVC Appears to be normal CONCLUSIONS LV systolic function is normal with EF of 60 to 65%. Moderate mitral regurgitation Trace aortic regurgitation Mild tricuspid regurgitation Compared to prior echocardiogram from 06/12/2021, no significant changes are seen. Roc Rivera MD (Electronically Signed) Final Date: 25 November 2022 17:27 S
--- NOTE | 2022-11-22 14:30 | ECG_ITS ---
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 Interpretive Statements NAME OF STUDY: LEXISCAN SESTAMIBI STRESS TEST INDICATION: [Chest Pain, ] Procedure: At the baseline, the blood pressure was 135/92 mmHg with a heart rate of 93 bpm. The electrocardiogram showed normal sinus rhythm, normal axis with normal ST and T's. The Lexiscan was infused over a period of 20 seconds. A total of 0.4 mg of Lexiscan was infused. The stress phase was continued for a total of 5 minutes. Heart rate was at the end of stress phase was 111 bpm and a blood pressure of 134/90 mmHg. The EKG at the peak infusion revealed normal sinus rhythm with no significant ST-T wave changes. Sestamibi was injected 20 seconds after the Lexiscan infusion. Blood pressure at the end of recovery phase was 136/90 mmHg with a heart rate of 111 bpm. Conclusion: 1. Normal EKG response to Lexiscan infusion 2. No Lexiscan induced chest pain or cardiac arrhythmia. 3. Normal blood pressure and heart rate response. 4. Sestamibi/sestamibi perfusion scan pending; see separate report. Electronically Signed On 11-24-2022 14:25:39 CDT by Roc Rivera M.D. [id number]
--- NOTE | 2022-11-22 14:30 | CT_ITS ---
WS: [id number] CT chest w con* [id number] HISTORY: abnormal CXR TECHNIQUE: Axial imaging performed through the thorax. Coronal and sagittal reformats are submitted. All CT scans at [facility] use at least one of these dose optimization techniques: automated exposure control; mA and/or kV adjustment per patient size (includes targeted exams where dose is mat ched to clinical indication); or iterative reconstruction. CONTRAST: Omnipaque 350; 100 mL IV. DLP: 453.51 mGy.cm COMPARISON: Prior CT 06/11/2021 and recent chest radiograph 11/22/2022 Lungs and central airway: Diffuse multifocal areas of groundglass attenuation and scattered opacifica tions. Majority of these opacifications are subsolid and groundglass attenuation. No dense areas of c onsolidation. Pleura: Small bilateral layering pleural effusions. Heart and pericardium: Very mild enlargement of the heart. LEFT atrium is moderately enlarged measuri ng up to 6.0 cm in diameter. Pulmonary arteries are large. No central emboli. Normal size aorta. Mediastinum and elisabet: Moderately prominent bilateral perihilar lymphoid tissue. There is central bron chovascular thickening measuring up to 10 mm on the RIGHT and 12 mm on the LEFT. There are small para tracheal lymph nodes. Mild RIGHT central bronchial thickening corresponds to the increased fullness i n the hilum seen on the recent radiograph. Vessels: Enlarged pulmonary artery. Normal aorta. Chest wall and lower neck: No soft tissue masses. Upper abdomen: Mild hepatic steatosis. No adrenal mass. Osseous structures: No destructive process. CT/CT chest w con* [id number] IMPRESSION: 1. Scattered bilateral pulmonary opacifications and groundglass opacification. Differential includes pulmonary edema and pneumonitis. 2. Bilateral perihilar bronchial thickening and indeterminate lymph nodes. Umu pect this all may be a reactive process. Recommend follow-up chest CT in 3 rigo hs after patient's acute illness resolves. 3. Pulmonary hypertension. 4. Enlarged LEFT atrium.
[2022-11-22 14:49] LABS: Troponin 5 6HR Delta -34.2 ng/L (0-12)
[2022-11-22 14:51] LABS: Troponin 5 6HR 186.8 ng/L (0-10)
--- NOTE | 2022-11-22 14:51 | PC.NURSE ---
to ct scan
[2022-11-22] MEDS: iohexol 350 mg/mL 500 mL Btl (per mL) IV (15:16)
[2022-11-22] MEDS: sodium chloride 0.9% 1,000 ML 75 ML IV (15:25)
[2022-11-22] MEDS: nitroglycerin 1 gm/inch oint Pkt 0.5 INCH TOPICAL ×2 (15:26→20:33)
[2022-11-22] MEDS: ondansetron 2 mg/ML SDV 2 mL 4 MG IVP ×2 (17:04→22:50)
[2022-11-22] MEDS: pantoprazole DR 40 mg Tablet PO (17:45)
[2022-11-23] VITALS (10 sets, daily range): BP systolic 108–149; BP diastolic 62–97; PULSE 81–111; RESP 16–24; TEMP 36.7–37.7; O2SAT 95–97
[2022-11-23] MEDS: bismuth subsalicylate 240 mL Btl 15 ML PO (00:16)
[2022-11-23] MEDS: nitroglycerin 1 gm/inch oint Pkt 0.5 INCH TOPICAL (03:08)
[2022-11-23] MEDS: sodium chloride 0.9% 1,000 ML 75 ML IV (03:11)
[2022-11-23 05:38] LABS: Basophils % 0.2 %; Eosinophils # 0.1 10^3/uL (0.0-0.8); Eosinophils % 0.5 %; Hemoglobin 11.4 g/dL (11.5-15.3); Lymphocytes # 2.3 10^3/uL (0.8-4.8); Lymphocytes % 23.6 %; Mean Corpuscular HGB Conc 33.5 g/dL (30.0-36.0); Mean Corpuscular Hemoglobin 35.1 pg (28.0-34.0); Mean Corpuscular Volume 104.6 fl (81-99); Mean Platelet Volume 10.1 fL (7.4-10.4); Monocytes # 0.5 10^3/uL (0.2-0.9); Monocytes % 5.6 %; Neutrophils # 6.64 10^3/uL (1.8-7.7); Neutrophils % 69.6 %; Nucleated Red Blood Cells % 0 %; Platelet Count 217 10^3/cmm (130-400); Red Blood Count 3.25 10^6/uL (4.1-5.3); Red Cell Distribution Width 14.4 % (12.1-15.1); White Blood Count 9.5 10^3/uL (4.0-10.0)
[2022-11-23 05:58] LABS: Alanine Aminotransferase 14 U/L (0-33); Albumin Level 3.5 g/dL (3.5-5.2); Alkaline Phosphatase 71 U/L (35-105); Blood Urea Nitrogen 6 mg/dL (8-23); Calcium 8.4 mg/dL (8.5-10.5); Carbon Dioxide 22 mmol/L (22-29); Chloride 104 mmol/L (98-107); Globulin 2.4 g/dL (1.3-4.6); Glucose 129 mg/dL (65-115); Magnesium 1.5 mg/dL (1.7-2.3); Osmolality Calculated 285 mOsm/kg (285-295); Sodium 138 mmol/L (136-145); Total Protein 5.9 g/dL (6.6-8.7)
[2022-11-23 05:59] LABS: Anion Gap 15.9 (5-19); Aspartate Amino Transferase 36 U/L (0-32); Potassium 3.9 mmol/L (3.5-5.1)
--- NOTE | 2022-11-23 06:00 | NMCV_ITS ---
NM grayson perf SPECT r/s* [id number] Denia Espino Age: 62 Gender: F : 1960 Exam Date: 11/23/2022 06:36 Ordering Phys: William Clark MD Technologist: VICKY Sifuentes Exam Location: [facility] Indications: CHEST PAIN STRESS TEST Please see separate stress test report in [facility] for full findings IMAGE PROTOCOL Rest/Stress 1 Lexiscan Day Radiopharmaceutical Dose (mCi) Administration Site Administered by Rest: Tc-99m 10.9 IV Carlo Jo, KILN PUSHER Sestamibi Stress:Tc-99m 32.9 IV Carlo Jo, KILN PUSHER Sestamibi Rest: 23-Nov-2022 60 Discovery 630 Stress: 23-Nov-2022 30 Discovery 630 Images obtained in supine and prone position. 0.4mg Lexiscan. SPECT RESULTS Technical Quality: Excellent Raw Data Analysis: Normal Image Corrections: No attenuation or motion correction applied Summed Stress Score: 9 Summed Rest Score: 9 Summed Difference Score: 1 PERFUSION FINDINGS There is reduced radiotracer uptake noted in inferior wall at rest images. This improves with stress imaging. This is likely secondary to attenuation artifact in RCA territory. No evidence of ischemia seen. FUNCTIONAL RESULTS (calculated via Gated SPECT) Stress Image LV EF (%): 57 Stress EDV (mL):125 TID: 0.85 Stress ESV (mL):54 FUNCTIONAL FINDINGS: There is normal left ventricular systolic function. IMPRESSIONS 1. Perfusion defect noted in the RCA territory likely represents attenuation artifact. No evidence of ischemia. 2. LV systolic function is normal Roc Rivera MD (Electronically Signed) Final Date: 23 November 2022 09:24 S
[2022-11-23] MEDS: regadenoson 0.4 Mg/5 ml Syringe IVP (07:27)
[2022-11-23] MEDS: enoxaparin 80 mg/0.8 mL Syringe SUBCUT (08:27)
[2022-11-23] MEDS: nitroglycerin 1 gm/inch oint Pkt 1 INCH TOPICAL ×2 (08:27→08:55)
[2022-11-23] MEDS: aspirin 325 mg EC Tablet PO (08:30)
[2022-11-23] MEDS: metoprolol tartrate 25 mg Tablet PO (08:30)
[2022-11-23] MEDS: pantoprazole DR 40 mg Tablet PO (08:30)
[2022-11-23] MEDS: magnesium sulfate premix 2 GM/50 ML PIGGYBACK IV (08:30)
[2022-11-23] MEDS: losartan 50 mg Tablet PO (08:30)
--- NOTE | 2022-11-23 09:01 | PC.NURSE ---
Removed Jason strip at [address] Clark.
--- NOTE | 2022-11-23 09:05 | P.PN_ITS ---
Subjective Subjective: Patient is doing well. no chest pain. Vitals/I&O/Wt Last Vital Signs Temp 98.1 F 11/23/22 04:00 Pulse 93 11/23/22 08:55 Resp 20 H 11/23/22 04:00 BP 137/94 11/23/22 08:55 Pulse Ox 96 11/23/22 00:00 O2 Del Method Nasal Cannula 11/23/22 04:00 11/22/22 11/23/22 11/23/22 22:59 06:59 14:59 Intake Total 118 / 1478 882.5 / 2360.5 Balance 118 / 1478 882.5 / 2360.5 Weight last 48 hrs Weight 183 lb Physical Exam Narrative: GENERAL: Patient is alert, awake and oriented x3. [] NECK: No jugular vein distension. [] HEENT: No cyanosis. No icterus. No pallor. [] HEART: Regular S1 and S2. No murmur, rub or gallop. [] LUNGS: Clear to auscultate bilaterally. [] CENTRAL NERVOUS SYSTEM: Grossly nonfocal. [] EXTREMITIES: Lower extremities with no edema Data 11/23/22 04:39 11/23/22 04:39 A&P Assessment and plan (1) Chest pain: Qualifiers: Chest pain type: unspecified Qualified Code(s): R07.9 - Chest pain, unspecified (2) Elevated troponin: Plan Patient had stress test that did not show significant ischemia. Medical therapy at this time. Aggressive blood pressure control. Low-sodium diet and excise recommended. Thank you for involving us with care of this patient. Please call questions. Attestations Medical Necessity Statement*: Care expected to cross 2 midnights. Coding Level of Care Code Acute Code for [facility] Diagnoses Chest pain R07.9 Chest pain type: unspecified Elevated troponin R77.8
--- NOTE | 2022-11-23 10:41 | P.DS_ITS ---
Discharge Providers Date of Admission: 11/22/22 10:25 Date of Discharge: November 23, 2022 Attending Provider at Admission: William Clark MD Attending Provider at Discharge: William Clark MD Primary Care Provider: REBA Deleon Diagnoses at Discharge Discharge Diagnosis (1) Chest pain: Status: Acute Qualifiers: Chest pain type: unspecified Qualified Code(s): R07.9 - Chest pain, unspecified (2) Elevated troponin: Status: Acute Reason for Visit Reason for Visit: chest pain Hospital Course Hospital Course Denia is a 62-year-old white female who presented to the hospital with chest discomfort. Troponin was significantly elevated. Trend was downward. She also had an abnormal chest x-ray showing right hilar fullness. She had had a recent angiogram, in 2021 demonstrating no significant disease. Cardiology evaluated her, and performed a nuclear stress test that was negative for reversible ischemia. Patient's chest discomfort went away during her hospital stay. She did have some other symptoms at home including nausea and vomiting. She was placed on Protonix twice daily. Symptoms of heartburn improved while in the hospital. She did not have any significant cough, shortness of breath or other symptoms. She had been drinking quite heavily prior to her hospital stay, at least the day before. She was encouraged not to drink, reduce caffeine, continue Protonix for at least 4 weeks, notify her physician for any fever. CT scan was done while in the hospital demonstrated some enlarged lymph nodes in the right, and she was told and it was recommended she get a CT noncontrast of chest in 3 months for follow-up. She was given an opportunity to ask questions, and agreed with the plan. Physical Exam Narrative: General exam no distress Neck is supple Cardiovascular regular rate and rhythm without murmur Lungs clear Abdomen is soft with positive bowel sounds Extremities no sinus clubbing edema Discharge Data Studies Completed and Pending Completed Studies During Hospitalization Category Date Time Status CT chest w con* [id number] Routine Cat Scan 11/22/22 14:30 Completed Sestamibi Stress Test Request Routine Exams 11/22/22 14:30 Draft XR chest 1V portable [id number] Stat Exams 11/22/22 07:45 Completed NM grayson perf SPECT r/s* [id number] Routine Nuc Med 11/23/22 06:00 Completed Pending at discharge Category Date Time Status CV. echo complete* [id number] Routine Ultrasound 11/22/22 14:30 Taken Radiology Impressions Chest X-Ray 11/22/22 07:45 IMPRESSION: 1. Increased slight opacification centered over the RIGHT hilum and medial RIG HT lower lung field. Recommend follow-up chest CT with IV contrast. Differential includes pneumonia, pneumonitis but due to the fullness at the RIGHT hilum lymph nodes to be excluded. 2. No dense consolidation or pneumonia. Chest CT 11/22/22 14:30 IMPRESSION: 1. Scattered bilateral pulmonary opacifications and groundglass opacification. Differential includes pulmonary edema and pneumonitis. 2. Bilateral perihilar bronchial thickening and indeterminate lymph nodes. Suspect this all may be a reactive process. Recommend follow-up chest CT in 3 months after patient's acute illness resolves. 3. Pulmonary hypertension. 4. Enlarged LEFT atrium. Laboratory Results WBC 9.5 10^3/uL (4.0-10.0) 11/23/22 04:39 RBC 3.25 10^6/uL (4.1-5.3) L 11/23/22 04:39 Hgb 11.4 g/dL (11.5-15.3) L 11/23/22 04:39 Hct 34.0 % (37.0-47.0) L 11/23/22 04:39 MCV 104.6 fl (81-99) H 11/23/22 04:39 MCH 35.1 pg (28.0-34.0) H 11/23/22 04:39 MCHC 33.5 g/dL (30.0-36.0) 11/23/22 04:39 RDW 14.4 % (12.1-15.1) 11/23/22 04:39 Plt Count 217 10^3/cmm (130-400) 11/23/22 04:39 MPV 10.1 fL (7.4-10.4) 11/23/22 04:39 Neut % (Auto) 69.6 % 11/23/22 04:39 Lymph % (Auto) 23.6 % 11/23/22 04:39 [place] % (Auto) 5.6 % 11/23/22 04:39 Eos % (Auto) 0.5 % 11/23/22 04:39 Baso % (Auto) 0.2 % 11/23/22 04:39 Neut # (Auto) 6.64 10^3/uL (1.8-7.7) 11/23/22 04:39 Lymph # (Auto) 2.3 10^3/uL (0.8-4.8) 11/23/22 04:39 [place] # (Auto) 0.5 10^3/uL (0.2-0.9) 11/23/22 04:39 Eos # (Auto) 0.1 10^3/uL (0.0-0.8) 11/23/22 04:39 Baso # (Auto) 0.0 10^3/uL (0.0-0.1) 11/23/22 04:39 Nucleated RBC % (auto) 0 % 11/23/22 04:39 Nucleated RBCs # 0.0 /100WBC 11/23/22 04:39 Sodium 138 mmol/L (136-145) 11/23/22 04:39 Potassium 3.9 mmol/L (3.5-5.1) 11/23/22 04:39 Chloride 104 mmol/L (98-107) 11/23/22 04:39 Carbon Dioxide 22 mmol/L (22-29) 11/23/22 04:39 Anion Gap 15.9 (5-19) 11/23/22 04:39 BUN 6 mg/dL (8-23) L 11/23/22 04:39 Creatinine 0.3 mg/dL (0.5-0.9) L 11/23/22 04:39 GFR Calculation 224.0 mL/min (90-130) H 11/23/22 04:39 Glucose 129 mg/dL (65-115) H 11/23/22 04:39 Calculated Osmolality 285 mOsm/kg (285-295) 11/23/22 04:39 Calcium 8.4 mg/dL (8.5-10.5) L 11/23/22 04:39 Magnesium 1.5 mg/dL (1.7-2.3) L 11/23/22 04:39 Total Bilirubin 1.0 mg/dL (0.15-1.2) 11/23/22 04:39 AST 36 U/L (0-32) H 11/23/22 04:39 ALT 14 U/L (0-33) 11/23/22 04:39 Alkaline Phosphatase 71 U/L (35-105) 11/23/22 04:39 Troponin T Baseline 221 ng/L (0-10) H* 11/22/22 08:02 Troponin T 120 Minute 203.8 ng/L (0-10) H 11/22/22 10:38 Delta Troponin T -17.2 ABS# (0-10) L 11/22/22 10:38 Troponin T Hi Sens 6Hr 186.8 ng/L (0-10) H 11/22/22 14:01 Troponin T Hi Sens 6Hr Delta -34.2 ng/L (0-12) L 11/22/22 14:01 Total Protein 5.9 g/dL (6.6-8.7) L 11/23/22 04:39 Albumin 3.5 g/dL (3.5-5.2) 11/23/22 04:39 Globulin 2.4 g/dL (1.3-4.6) 11/23/22 04:39 Vitals Last Vital Signs Temp 99.1 F 11/23/22 09:55 Pulse 81 11/23/22 09:55 Resp 24 H 11/23/22 09:55 BP 121/93 11/23/22 09:55 Pulse Ox 96 11/23/22 09:55 O2 Del Method Nasal Cannula 11/23/22 09:55 O2 Flow Rate 2 11/23/22 09:55 Discharge Plan Discharge Patient Disposition: Home Condition: Stable Prescriptions: New pantoprazole 40 mg Tablet,Delayed Release (Dr/Ec) 40 mg PO BID Qty: 60 0RF losartan 50 mg Tablet 50 mg PO DAILY Qty: 30 0RF metoprolol tartrate 25 mg Tablet 25 mg PO BID@0900,2100 Qty: 60 0RF Continued cyclobenzaprine 10 mg tablet 10 mg PO BID PRN (Reason: muscle spasm) 30 Days Qty: 60 2RF oxybutynin chloride 5 mg tablet 5 mg PO BID Qty: 60 2RF docusate sodium 50 mg capsule 200 mg PO ONCE Qty: 4 0RF Rx Instructions: Take day before Colonoscopy (DME) bilateral wrist brace See Rx Instructions .Route .MEDSUPPLY Qty: 1 0RF Rx Instructions: 99+ multivitamin Tablet 1 tab PO DAILY milk thistle 500 mg Capsule 500 mg PO DAILY Rx Instructions: give with meal/snack cholecalciferol (vitamin D3) [Vitamin D3] 10 mcg (400 unit) Tablet 10 mcg PO DAILY vitamin B complex [B Complex] Capsule 1 cap PO DAILY vitamin A 10,000 unit Tablet 10,000 unit PO DAILY [place] 3 Fish Oil Capsule 1,000 mg PO DAILY aspirin 81 mg Capsule 162 mg PO DAILY zinc acetate 25 mg (zinc) Capsule 25 mg PO DAILY magnesium 200 mg Tablet 200 mg PO DAILY Discontinued losartan 25 mg tablet 25 mg PO DAILY Qty: 30 2RF Discharge Orders: Discharge Order (Routine); Ordered 11/23/22 Ordered By: William Clark Referrals: Cathleen Kline FNP-C [Primary Care Provider] - 4-7 days (Recommend CT chest without contrast, follow-up chest x-ray and CT abnormality in 3 months.) Discharge Diet: Cardiac Discharge Activity: Increase activity as tolerated Patient Instructions: Chest Pain Stoplight, Opioid Safety Activity Restrictions/Additional Instructions: Take all medicine as prescribed Follow-up with your primary care provider 3 to 5 days You will need a CT chest noncontrast in 3 months for follow-up of CT abnormality right hilum with enlarged lymph nodes Call primary care provider for any fever. Patient's Health Concerns: Chest pain Assessment: Elevated troponin. Nuclear stress test no reversible ischemia Plan of Treatment: Improved control of blood pressure with addition of metoprolol, increase in losartan Secondary to some GI issues Protonix 40 mg twice daily for at least [address], repeat CT noncontrast 3 months Discharge Attestations Time Spent in Discharge Care*: greater than 30 min Quality Metrics Clinical Quality Measures [ No reported AMI, CVA or VTE this stay] Coding Level of Care Code 53056 Total time (in minutes) for Discharge: 40 Diagnoses Chest pain R07.9 Chest pain type: unspecified Elevated troponin R77.8
== END 2022-11-23 13:36 | disposition home or self-care (01) ==
LOC: ER 08:23 → CSU 12:06
PROVIDERS: Admitting Provider Internal Medicine; Emergency Provider Family Medicine; PCP Nurse Practitioner Family; Visit Provider Internal Medicine
DX: R77.8 Other specified abnormalities of plasma proteins (principal); R07.9 Chest pain, unspecified; R00.1 Bradycardia, unspecified; I10 Essential (primary) hypertension; R91.8 Other nonspecific abnormal finding of lung field; F10.90 Alcohol use, unspecified, uncomplicated; Z79.82 Long term (current) use of aspirin; I08.1 Rheumatic disorders of both mitral and tricuspid valves
CPT/HCPCS: 36415; 71045; 71260; 78452; 80053; 83735; 84484; 85025; 93005; 93017; 93306; 96361; 96365; 96372; 96375; 96376; 99285; A9500; G0378; J1650; J2405; J2785; J3475; J3490; J7030; Q9967

== ENCOUNTER → 2022-12-04 14:13 | Outpatient (BNVA) | payer MEDICARE, MEDICAID, SELFPAY | PROVIDERS: PCP Nurse Practitioner Family; Visit Provider Orthopaedic Surgery | DX: M54.9 Dorsalgia, unspecified (principal) | CPT/HCPCS: 72110; 99204 ==

== ENCOUNTER 2022-12-05 11:21 | Outpatient (CLI) | payer MEDICARE, MEDICAID, SELFPAY ==
--- NOTE | 2022-12-05 11:44 | US_ITS ---
WS: [id number] ULTRASOUND-GUIDED RIGHT BREAST BIOPSY CLINICAL INFORMATION: MASS IN R BREAST FINDINGS: The procedure including risks, benefits, and complications were discussed with the patient who agreed to proceed. Using sterile technique patient was prepped and draped in the usual sterile fashion. Aft er 1% lidocaine utilizing real-time ultrasound guidance 4 14-gauge cores were obtained of the RIGHT b reast lesion at the 11 o'clock position 4 cm from the nipple. Subsequently a titanium clip was placed in the biopsy cavity. No immediate complications. Pathology demonstrates A. Breast, right, 11 o'clock, 4 cm from nipple , ultrasound-guided biopsy: - Atypical ductal hyperplasia with microcalcifications in a background of usual ductal hyperplasia. - Two foci of duct ectasia with chronic inflammation. - No invasive carcinoma identified. US/[place] [id number] IMPRESSION: 1. Uncomplicated ultrasound-guided RIGHT breast biopsy. 2. The pathology demonstrates Atypical ductal hyperplasia with microcalcificat ions in a background of usual ductal hyperplasia. 3. Recommend lumpectomy due to the atypical ductal hyperplasia 4. Recommend Breast surgery consultation. 5. See pathology note for further discussion. BI-RADS: 4-Suspicious Finding-Biopsy Should Be Considered FOLLOW UP: Surgical Biopsy Recommended
== END 2022-12-05 11:22 | disposition home or self-care (01) ==
PROVIDERS: PCP Nurse Practitioner Family; Visit Provider Nurse Practitioner Family
DX: N63.11 Unspecified lump in the right breast, upper outer quadrant (principal); N60.91 Unspecified benign mammary dysplasia of right breast; N60.41 Mammary duct ectasia of right breast
CPT/HCPCS: 19083; 88305

== ENCOUNTER → 2023-01-14 15:09 | Outpatient (BNVA) | payer MEDICARE, MEDICAID, SELFPAY | PROVIDERS: PCP Nurse Practitioner Family; Visit Provider Specialist | DX: M17.11 Unilateral primary osteoarthritis, right knee; M23.8X1 Other internal derangements of right knee | CPT/HCPCS: 73560; 73565; 99203; 99204 ==

== ENCOUNTER → 2023-01-25 11:42 | Outpatient (BNVA) | payer MEDICARE, MEDICAID, SELFPAY | PROVIDERS: PCP Nurse Practitioner Family; Visit Provider Surgery | DX: N60.99 Unspecified benign mammary dysplasia of unspecified breast (principal) | CPT/HCPCS: 99204 ==

== ENCOUNTER → 2023-02-06 14:19 | Outpatient (BNVA) | payer MEDICARE, MEDICAID, SELFPAY | PROVIDERS: PCP Nurse Practitioner Family; Visit Provider Specialist | DX: M67.432 Ganglion, left wrist (principal) | CPT/HCPCS: 20612; 73110; 99204 ==

== ENCOUNTER → 2023-02-07 10:18 | Outpatient (BNVA) | payer MEDICARE, MEDICAID, SELFPAY | PROVIDERS: PCP Nurse Practitioner Family; Visit Provider Internal Medicine | DX: M45.0 Ankylosing spondylitis of multiple sites in spine (principal); M17.11 Unilateral primary osteoarthritis, right knee; L40.9 Psoriasis, unspecified; M46.1 Sacroiliitis, not elsewhere classified | CPT/HCPCS: 36415; 72202; 73120; 82550; 83516; 83520; 85651; 86140; 86200; 86704; 86803; 86812; 87340; 99214 ==

== ENCOUNTER 2023-02-12 14:09 | Outpatient (CLI) | payer MEDICARE, MEDICAID, SELFPAY ==
--- NOTE | 2023-02-12 14:30 | MR_ITS ---
WS: [id number] MRI RIGHT KNEE HISTORY: rule out loose body COMPARISON: Radiographs 01/14/2023 Anterior cruciate ligament: No identifiable ACL. Complete ACL tear. There is mild anterior subluxatio n of the tibia with respect to the femoral condyles. Posterior cruciate ligament: Mild buckling of the PCL due to the ACL tear. Medial collateral ligament: Intact. Posterior lateral corner structures: Intact. Medial menisci: Abnormal anterior and posterior horns. Only a very small portion of the posterior men iscus is identified but is abnormal. Lateral meniscus: Abnormal anterior and posterior horns. Menisci are torn. Extensor mechanism: Distal quadriceps tendon and patellar tendons are intact. Fluid and soft tissue: Moderate suprapatellar joint effusion. No loose body identified within the stephanie nt fluid. Mild soft tissue edema surrounding the knee. No Buchanan's cyst. Osseous and articular structures: Patellofemoral compartment: Mild narrowing of the patellofemoral joint space. Cartilage is intact. Medial compartment: Moderate narrowing medial compartment with moderate chondromalacia. Near bone upo n bone. Lateral compartment: Moderate narrowing of the lateral compartment. Diffuse chondromalacia. Small mar ginal osteophytes. There is a small amount of marrow edema in the tibial plateau. IMPRESSION: 1. Complete ACL tear. 2. Abnormal menisci in both the medial and lateral knee joint. Complete tears with abnormal signal th roughout both the anterior and posterior horns. 3. Moderate narrowing of the lateral compartment with diffuse chondromalacia, joint space narrowing a nd osteophytes. Small amount of marrow edema in the lateral tibial plateau. 4. Mild narrowing of the patellofemoral compartment. 5. Moderate narrowing medial compartment with moderate chondromalacia. 6. Moderate size joint effusion. No loose body identified.
== END 2023-02-12 14:10 | disposition home or self-care (01) ==
PROVIDERS: PCP Nurse Practitioner Family; Visit Provider Specialist
DX: M25.561 Pain in right knee (principal); M23.8X1 Other internal derangements of right knee; S83.512A Sprain of anterior cruciate ligament of left knee, initial encounter; M94.261 Chondromalacia, right knee; X58.XXXA Exposure to other specified factors, initial encounter
CPT/HCPCS: 73721

== ENCOUNTER → 2023-03-28 11:26 | Outpatient (BNVA) | payer MEDICARE, MEDICAID, SELFPAY | PROVIDERS: PCP Nurse Practitioner Family; Visit Provider Nurse Practitioner | DX: M17.11 Unilateral primary osteoarthritis, right knee (principal); M23.51 Chronic instability of knee, right knee; Z46.89 Encounter for fitting and adjustment of other specified devices | CPT/HCPCS: 20610; 73560; 73565; 97760; 99215; J1100; J2795; J3301; L1812 ==

== ENCOUNTER 2023-03-28 12:21 | Outpatient (CLI) | payer MEDICARE, MEDICAID, SELFPAY | END 2023-03-28 12:22 | disposition home or self-care (01) | LOC: SPT 13:18 | PROVIDERS: PCP Nurse Practitioner Family; Visit Provider Nurse Practitioner | DX: Z46.89 Encounter for fitting and adjustment of other specified devices (principal); M17.11 Unilateral primary osteoarthritis, right knee; M23.51 Chronic instability of knee, right knee | CPT/HCPCS: 20610; 97760; 99215; J1100; J2795; J3301; L1812 ==

== ENCOUNTER 2023-04-02 12:22 | Outpatient (CLI) | payer MEDICARE, MEDICAID, SELFPAY ==
--- NOTE | 2023-04-02 14:30 | XR_ITS ---
WS: [id number] SCREENING DEXA SCAN [employer] [facility] CLINICAL INFORMATION: Z00.00 - Encounter for general adult medical examination ... COMPARISON: None. FINDINGS: The L2-L4 bone mineral density measures 1.38. This corresponds to a T score score of 1.5 and Z score of 2.2. Left femoral neck bone mineral density measures 1.124 (g/cm2). This corresponds to a T score of 0.9 ( no units) and Z score of 1.5 (no units). LEFT forearm bone mineral density measures 0.876. This corresponds to a T score 0.0 and Z score of 1. 4. IMPRESSION: Normal bone mineralization. Patient's FRAX calculated 10 year probability for major osteoporotic fracture is 11.6% and osteoporot ic hip fracture is 0.6%.
== END 2023-04-02 12:23 | disposition home or self-care (01) ==
LOC: RAD 12:22
PROVIDERS: PCP Nurse Practitioner Family; Visit Provider Nurse Practitioner Family
DX: Z00.00 Encounter for general adult medical examination without abnormal findings (principal); Z13.820 Encounter for screening for osteoporosis
CPT/HCPCS: 77080

== ENCOUNTER → 2023-05-14 10:16 | Outpatient (BNVA) | payer MEDICARE, MEDICAID, SELFPAY | PROVIDERS: PCP Nurse Practitioner Family; Visit Provider Nurse Practitioner Family | DX: R19.7 Diarrhea, unspecified (principal); I10 Essential (primary) hypertension | CPT/HCPCS: 80053; 80061; 82607; 82746; 84443; 85025 ==

== ENCOUNTER → 2023-05-15 10:18 | Outpatient (BNVA) | payer MEDICARE, MEDICAID, SELFPAY | PROVIDERS: PCP Nurse Practitioner Family; Referring Provider Nurse Practitioner Family; Visit Provider Anesthesiology Pain Medicine | DX: M51.16 Intervertebral disc disorders with radiculopathy, lumbar region; M47.816 Spondylosis without myelopathy or radiculopathy, lumbar region | CPT/HCPCS: 99204 ==

== ENCOUNTER 2023-06-29 21:32 | Emergency (ER) | payer MEDICARE, MEDICAID, SELFPAY ==
[2023-06-29 21:36] VITALS: BP 157/91; PULSE 84; RESP 17; TEMP 36.6; O2SAT 98; BMI 35.4
--- NOTE | 2023-06-29 23:04 | XRR_ITS ---
PROCEDURE INFORMATION: Exam: XR Lumbosacral Spine Exam date and time: 06/29/2023 11:09 PM Age: 63 years old Clinical indication: Lumbago; Patient HX: Radiculopathy; Lower back pain TECHNIQUE: Imaging protocol: Radiologic exam of the lumbosacral spine. Views: 2 or 3 views. COMPARISON: CR XR sacrum coccyx min 2V [id number] 12/12/2021 9:43 AM FINDINGS: Bones/joints: There is degenerative change in the lower lumbar spine with severe narrowing of the L4-L5 and L5-S1 disc spaces with small anterior osteophytes. No lumbar spine fracture is identified. There is essentially no motion between the vertebrae in flexion or extension. No abnormal motion is identified. Soft tissues: Unremarkable. XR/XR lumbar spine f/e only [id number] IMPRESSION: Degenerative changes. No fracture is identified.
[2023-06-29] MEDS: orphenadrine 30 mg/mL Inj 2 mL 60 MG IM (23:32)
[2023-06-29] MEDS: dexamethasone 10 mg/mL INJ IM (23:32)
[2023-06-29] MEDS: ketorolac 30 mg/mL INJ IM (23:33)
--- NOTE | 2023-06-29 23:43 | W.ED.EXTPRO ---
HPI - Extremity Problem General: Chief complaint: Extremity Problem,Nontraumatic Stated complaint: LEG PAIN Time Seen by Provider: 06/29/23 22:28 History of Present Illness: Denia desouza is a 63-year-old female that presents to the emergency department with complaints of right lower extremity pain. Patient reports she has hip pain and pain that radiates into the knee and just distal. The patient also reports she does have chronic back pain. 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 She denies weakness. She denies falls. Associated symptoms: Deny chest pain, fever(s) or rash Review of Systems General: Reports: 10 or more systems reviewed and unremarkable except in HPI and below Const: Denies: fever(s), chills, change in appetite, change in weight, fatigue or malaise Eyes: Denies: change in vision, eye discomfort, eye discharge or eye redness ENMT: Denies: throat pain, enlarged tonsils, odynophagia, hoarseness, ear or mastoid pain, ear discharge, change in hearing, tinnitus, nasal discharge, nasal congestion, post nasal drip or sinus pain Card: Denies: chest pain, palpitations, irregular heart rhythm, edema, dyspnea on exertion, orthopnea or leg pain with exertion Resp: Denies: dyspnea, productive cough, non-productive cough, wheezing, stridor or chest congestion GI: Denies: abdominal pain, nausea, vomiting, dysphagia, diarrhea, constipation, bloating, GI cramping or hematochezia : Denies: flank pain, difficulty voiding, dysuria, urinary frequency, urinary urgency, urinary hesitancy, oliguria or hematuria Musc: Reports: back pain and extremity pain; Denies: neck pain, joint pain, joint swelling, joint redness, joint warmth or muscle weakness Skin/Breast: Denies: rash, pruritus, erythema, photosensitivity or new lesions Neuro: Denies: headache(s), numbness in extremities, weakness in extremities, sensory changes, lack of coordination, difficulty walking, frequent falls, dizziness, confusion, Slurred speech present, difficulty communicating thoughts, seizure-like activity or involuntary movements Endo: Denies: polyuria, polydipsia or tired all the time Mello/Lymph: Denies: easy bruising or easy bleeding PFSH ED PFSH: Medical History Recurrent right knee instability HTN (hypertension) History of hypertension Surgical History History of shoulder surgery History of surgery on lower extremity History of right hip replacement Status post splenectomy Family History Mother CAD (coronary artery disease) S/P CABG x 3 Father Stroke Social History Smoking and tobacco/nicotine status: never used tobacco/nicotine Alcohol intake: current Alcohol intake frequency: 0-2 Drinks per Day Alcohol type: beer, hard liquor and other Substance/Drug Use: never Lives independently: Yes Household members: none Marital status: Physical Exam Narrative: EXAM NARRATIVE: Physical Exam Const COMMON NORMALS: no acute distress, patient oriented x3 and no limitations HENMT COMMON NORMALS: normocephalic, COMMON NORMALS: normal respiratory effort, No use of accessory muscles Back/Pelvis LUMBAR SPINE/LOWER BACK: Yes ROM limited, Yes pain with ROM, Yes lumbar spinal tenderness, Yes paraspinal muscle tenderness, Yes straight leg raise positive right and Yes straight leg raise positive left OTHER: axial loading positive bilaterally Extremity GENERAL: Yes normal exam except as noted Neuro COMMON NORMALS: patient oriented x3 MOTOR EXAM: 5/5 motor strength present throughout DEEP TENDON REFLEXES: Right patellar reflex intensity grade: 2+, Left patellar reflex intensity grade: 2+, Right ankle reflex intensity grade: 2+ and Left ankle reflex intensity grade: 2+ Psych COMMON NORMALS: mental status grossly normal, Normal thought process present and speech normal APPEARANCE: Yes grossly normal ATTITUDE: Yes calm ACTIVITY/MOTOR BEHAVIOR: Yes appropriate eye contact SPEECH: Yes normal speech MOOD & AFFECT: Yes euthymic mood THOUGHT PROCESS: Normal thought process present THOUGHT CONTENT: Yes Normal thought content present ATTENTION/CONCENTRATION: Yes attention grossly intact MEMORY/COGNITION: Yes memory grossly intact INSIGHT: Good insight present (Psych) JUDGEMENT: Good judgement present (Psych) Course Vital Signs: Vital signs: Vital Signs Temperature 97.8 F 06/29/23 21:36 Pulse Rate 84 06/29/23 21:36 Respiratory Rate 17 06/29/23 21:36 Blood Pressure 157/91 06/29/23 21:36 Pulse Oximetry 98 06/29/23 21:36 Oxygen Delivery Me thod Room Air 06/29/23 21:36 MDM - Extremity (Nontraumatic) Medical Decision Making Patient was evaluated in the emergency department today for back and right lower extremity pain. She underwent XR imaging of the lumbar spine flexion extension which revealed degenerative disc disease at L4/5 and L5/S1. There is severe loss of disc space height, foraminal narrowing and osteophyte formation. She originally believed her symptoms to be the only but they do follow the L4 distribution which correlates with XR imaging. She is likely going to require a MRI lumbar spine to further evaluate. In the interim I have given her a dose of Toradol, Decadron, Norflex. Patient had good resolution of her symptoms. Her x-ray does show degenerative changes in her lumbar spine that may be responsible for her symptomatology. However, she has had recent issues with a total hip arthroplasty done in 2014. She is working with an orthopedic surgeon regarding arthritic knee pain as well. She is going to be seeing a chiropractor in the next week. I advised her to start working on core strengthening and continue to work on weight loss. Amazingly, she is down from 300+ pounds to 185ish Going to send her home with Robaxin, Toradol and a Medrol Dosepak. 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 All questions answered Lab Data Radiology Impressions Lumbar Spine X-Ray 06/29/23 23:04 IMPRESSION: Degenerative changes. No fracture is identified. All radiology interpretation(s) finalized by discharge Discharge Plan Discharge Patient Disposition: Home Clinical Impression: Facet arthropathy, lumbar, Lumbar back pain, Radiculopathy Condition: Stable Prescriptions: New methocarbamol 500 mg tablet 500 mg PO TID PRN (Reason: Muscle spasms) Qty: 30 0RF Medrol (Rafi) 4 mg tablets,dose pack See Rx Instructions .ROUTE .COMPLEX Qty: 21 0RF Rx Instructions: orally per package directions ketorolac 10 mg tablet 10 mg PO Q8H 5 Days Qty: 15 0RF No Action celecoxib [Celebrex] 200 mg capsule 200 mg PO BID Qty: 60 5RF metoprolol tartrate 25 mg tablet 25 mg PO BID Qty: 180 1RF cyclobenzaprine 10 mg tablet 10 mg PO DAILY PRN (Reason: muscle spasm) Qty: 90 1RF oxybutynin chloride 5 mg tablet 5 mg PO BID Qty: 180 1RF losartan 50 mg tablet 50 mg PO DAILY Qty: 90 1RF (DME) hinged knee brace See Rx Instructions .Route .MEDSUPPLY Qty: 1 0RF Rx Instructions: As directed Monovisc 88 mg/4 mL syringe 4 ml intra-articular ONCE Qty: 1 0RF Rx Instructions: 1 syringe to the right knee. Synvisc-One 48 mg/6 mL syringe 48 mg intra-articular .COMPLEX PRN (Reason: right knee OA) Qty: 6 0RF Rx Instructions: 48 mg intra-articularly every 6 months and one day PRN; multivitamin Tablet 1 tab PO DAILY milk thistle 500 mg Capsule 500 mg PO DAILY Rx Instructions: give with meal/snack cholecalciferol (vitamin D3) [Vitamin D3] 10 mcg (400 unit) Tablet 10 mcg PO DAILY vitamin B complex Capsule 1 cap PO DAILY vitamin A 10,000 unit Tablet 10,000 unit PO DAILY omega-3 fatty acids Capsule 1,000 mg PO DAILY aspirin 81 mg Capsule 162 mg PO DAILY zinc acetate 25 mg (zinc) Capsule 25 mg PO DAILY magnesium 200 mg Tablet 200 mg PO DAILY Discharge Orders: Discharge ED (Routine); Ordered 06/30/23 Ordered By: Cuba Osborne Referrals: Cathleen Kline FNP-C [Primary Care Provider] - Patient Instructions: Low Back Strain (ED), Lower Back Exercises (ED), Core Strengthening Exercises (ED), Opioid Safety, Pain Management Activity Restrictions/Additional Instructions: Please return to the emergency department as needed for new concerning or worsening symptoms Coding Level of Care Code ED Neonatal Intensive Care Nurse for Louie Reyes
== END 2023-06-30 00:47 | disposition home or self-care (01) ==
PROVIDERS: Emergency Provider Nurse Practitioner; PCP Nurse Practitioner Family
DX: M47.896 Other spondylosis, lumbar region (principal); M54.16 Radiculopathy, lumbar region; Z79.82 Long term (current) use of aspirin; I10 Essential (primary) hypertension
CPT/HCPCS: 72120; 96372; 99284; J1100; J1885; J2360

== ENCOUNTER → 2023-07-09 12:22 | Outpatient (BNVA) | payer MEDICARE, MEDICAID, SELFPAY | PROVIDERS: PCP Nurse Practitioner Family; Visit Provider Surgery | DX: N64.59 Other signs and symptoms in breast (principal); N63.10 Unspecified lump in the right breast, unspecified quadrant; N60.99 Unspecified benign mammary dysplasia of unspecified breast | CPT/HCPCS: 99214 ==

== ENCOUNTER → 2023-07-17 13:12 | Outpatient (BNVA) | payer MEDICARE, MEDICAID, SELFPAY | PROVIDERS: PCP Nurse Practitioner Family; Visit Provider Nurse Practitioner | DX: M17.11 Unilateral primary osteoarthritis, right knee; M23.51 Chronic instability of knee, right knee; M51.16 Intervertebral disc disorders with radiculopathy, lumbar region; M47.816 Spondylosis without myelopathy or radiculopathy, lumbar region; M25.569 Pain in unspecified knee | CPT/HCPCS: 36415; 73560; 73565; 80053; 81001; 85025; 99214 ==

== ENCOUNTER → 2023-11-13 11:49 | Outpatient (BNVA) | payer MEDICARE, MEDICAID, SELFPAY | PROVIDERS: PCP Nurse Practitioner Family; Visit Provider Nurse Practitioner Family | DX: I10 Essential (primary) hypertension (principal); I48.91 Unspecified atrial fibrillation | CPT/HCPCS: 80053; 80061; 82607; 84443; 85025 ==

== ENCOUNTER 2023-11-16 07:56 | Emergency (ER) | payer MEDICARE, MEDICAID, SELFPAY ==
[2023-11-16 08:00] VITALS: BP 138/90; PULSE 78; RESP 17; TEMP 36.6; O2SAT 97
--- NOTE | 2023-11-16 08:04 | XRR_ITS ---
PROCEDURE INFORMATION: Exam: XR Chest Exam date and time: 11/16/2023 8:20 AM Age: 63 years old Clinical indication: Shortness of breath TECHNIQUE: Imaging protocol: Radiologic exam of the chest. Views: 2 views. COMPARISON: 1. CR XR chest 1V portable [id number] 02/05/2022 1:[address] chest w con* [id number] 11/22/2022 2:53 PM FINDINGS: Lungs: Mild left basilar and right lower lung zone linear atelectasis versus scarring. No consolidation. Pleural spaces: Unremarkable. No pleural effusion. No pneumothorax. Heart/Mediastinum: Unremarkable. No cardiomegaly. Bones/joints: Degenerative changes along the spine and left acromioclavicular joint. Chronically shortened right distal clavicle may be postsurgical. Soft tissues: Small right axillary calcifications are stable. XR/XR chest 2V* [id number] IMPRESSION: No acute findings.
--- NOTE | 2023-11-16 08:05 | ECG_ITS ---
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 Measurements Intervals Anderson Rate: 83 P: 45 DC: 179 QRS: 19 QRSD: 93 T: 57 QT: 360 QTc: 424 Interpretive Statements SINUS RHYTHM Compared to ECG 11/22/2022 10:08:17 No significant changes Electronically Signed On 11-17-2023 9:51:35 CDT by Pola Boyer M.D. [email or web address]
[2023-11-16 08:21] LABS: Basophils % 0.2 %; Eosinophils # 0.4 10^3/uL (0.0-0.8); Eosinophils % 3.9 %; Hematocrit 36.7 % (36-47); Lymphocytes # 3.7 10^3/uL (0.8-4.8); Mean Corpuscular HGB Conc 32.2 g/dL (30-55); Mean Corpuscular Hemoglobin 33.1 pg (27-33); Mean Corpuscular Volume 103.1 fl (85-98); Mean Platelet Volume 9.1 fL (7.4-10.4); Monocytes # 0.4 10^3/uL (0.2-0.9); Monocytes % 4.8 %; Neutrophils # 4.63 10^3/uL (1.8-7.7); Neutrophils % 50.6 %; Nucleated Red Blood Cells % 0 %; Platelet Count 266 10^3/cmm (157-399); Red Blood Count 3.56 10^6/uL (3.85-5.65); Red Cell Distribution Width 14.4 % (12.1-15.1); White Blood Count 9.16 10^3/uL (3.29-11.43)
[2023-11-16 08:44] LABS: Anion Gap 13.9 (5-19); Blood Urea Nitrogen 27 mg/dL (8-23); Calcium 9.1 mg/dL (8.5-10.5); Carbon Dioxide 25 mmol/L (22-29); Chloride 108 mmol/L (98-107); Creatinine Clr Calc Pharmacy 72.5203; Glomerular Filtration Rate 62.8 mL/min (90-130); Glucose 83 mg/dL (65-115); Osmolality Calculated 298 mOsm/kg (285-295); Potassium 4.9 mmol/L (3.5-5.1); Sodium 142 mmol/L (136-145)
--- NOTE | 2023-11-16 08:48 | W.ED.SOB ---
HPI - SOB/Dyspnea General: Chief Complaint: Shortness of Breath/Dyspnea Stated Complaint: SOB Time Seen by Provider: 11/16/23 07:57 History of Present Illness: HPI Narrative: 63-year-old female presents with feeling of shortness of breath this morning. She reports she has had a cough and some symptoms of being on for couple weeks. She saw her primary care provider couple days ago and was started on azithromycin. She reports that when she awoke this morning she is very short of breath. She was given a DuoNeb in a row and her symptoms resolved. Patient is feeling significantly better at this time. Associated symptoms: Deny abdominal pain, chest pain, fever(s), nausea, palpitations or vomiting Review of Systems Const: Denies: fever(s) or chills Card: Denies: chest pain or palpitations Resp: Reports: dyspnea, productive cough and wheezing GI: Denies: abdominal pain, nausea or vomiting Skin/Breast: Denies: rash PFSH ED PFSH: Medical History Recurrent right knee instability HTN (hypertension) History of hypertension Surgical History History of shoulder surgery History of surgery on lower extremity History of right hip replacement Status post splenectomy Family History Mother CAD (coronary artery disease) S/P CABG x 3 Father Stroke Social History Smoking and tobacco/nicotine status: never used tobacco/nicotine Alcohol intake: current Alcohol intake frequency: 0-2 Drinks per Day Alcohol type: beer, hard liquor and other Substance/Drug Use: never Lives independently: Yes Household members: none Marital status: Physical Exam Const: COMMON NORMALS: no acute distress, patient oriented x3 and alert Resp: COMMON NORMALS: normal respiratory effort, No retractions, No use of accessory muscles and clear to auscultation bilaterally AUSCULTATION: clear to auscultation bilaterally Cardio: COMMON NORMALS: regular rate and regular rhythm RATE: regular rate RHYTHM: regular rhythm GI: COMMON NORMALS: Soft to palpation and non-tender PALPATION: Yes Soft to palpation Neuro: COMMON NORMALS: patient oriented x3, no focal motor deficits and no sensory deficits noted SENSORIUM/ORIENTATION: Yes alert Psych: COMMON NORMALS: mental status grossly normal, cooperative and normal affect Skin: COMMON NORMALS: no rashes or lesions noted GENERAL SKIN EXAM: no rashes or lesions noted Course Vital Signs: Vital signs: Vital Signs Temperature 97.8 F 11/16/23 08:00 Pulse Rate 78 11/16/23 08:00 Respiratory Rate 17 11/16/23 08:00 Blood Pressure 138/90 11/16/23 08:00 Pulse Oximetry 97 11/16/23 08:00 Oxygen Delivery Me thod Room Air 11/16/23 08:00 MDM - SOB/Dyspnea Medical Decision Making Patient is x-rays and labs were ordered reviewed and interpreted by me. There is no acute findings. Patient's symptoms are likely due to some mild reactive airway related to bronchitis versus allergies. Patient is already on a Z-Rafi which I recommend she continue. I will give her 1 dose of Decadron along with started on Ventolin inhaler recommend she use Zyrtec, Bel or similar antiallergy medication. She should follow with her primary care provider in about a week if not improving. She is stable and discharged home. Lab Data 11/16/23 08:17 11/16/23 08:17 Labs/Radiology: Radiology Impressions Chest X-Ray 11/16/23 08:04 IMPRESSION: No acute findings. Laboratory Results WBC 9.16 10^3/uL (3.29-11.43) 11/16/23 08:17 RBC 3.56 10^6/uL (3.85-5.65) L 11/16/23 08:17 Hgb 11.80 g/dL (11.27-16.99) 11/16/23 08:17 Hct 36.7 % (36-47) 11/16/23 08:17 MCV 103.1 fl (85-98) H 11/16/23 08:17 MCH 33.1 pg (27-33) H 11/16/23 08:17 MCHC 32.2 g/dL (30-55) 11/16/23 08:17 RDW 14.4 % (12.1-15.1) 11/16/23 08:17 Plt Count 266 10^3/cmm (157-399) 11/16/23 08:17 MPV 9.1 fL (7.4-10.4) 11/16/23 08:17 Neut % (Auto) 50.6 % 11/16/23 08:17 Lymph % (Auto) 40.0 % 11/16/23 08:17 [place] % (Auto) 4.8 % 11/16/23 08:17 Eos % (Auto) 3.9 % 11/16/23 08:17 Baso % (Auto) 0.2 % 11/16/23 08:17 Neut # (Auto) 4.63 10^3/uL (1.8-7.7) 11/16/23 08:17 Lymph # (Auto) 3.7 10^3/uL (0.8-4.8) 11/16/23 08:17 [place] # (Auto) 0.4 10^3/uL (0.2-0.9) 11/16/23 08:17 Eos # (Auto) 0.4 10^3/uL (0.0-0.8) 11/16/23 08:17 Baso # (Auto) 0.0 10^3/uL (0.0-0.1) 11/16/23 08:17 Nucleated RBC % (auto) 0 % 11/16/23 08:17 Nucleated RBCs # 0.0 /100WBC 11/16/23 08:17 Sodium 142 mmol/L (136-145) 11/16/23 08:17 Potassium 4.9 mmol/L (3.5-5.1) 11/16/23 08:17 Chloride 108 mmol/L (98-107) H 11/16/23 08:17 Carbon Dioxide 25 mmol/L (22-29) 11/16/23 08:17 Anion Gap 13.9 (5-19) 11/16/23 08:17 BUN 27 mg/dL (8-23) H 11/16/23 08:17 Creatinine 0.9 mg/dL (0.5-0.9) 11/16/23 08:17 GFR Calculation 62.8 mL/min (90-130) L 11/16/23 08:17 Glucose 83 mg/dL (65-115) 11/16/23 08:17 Calculated Osmolality 298 mOsm/kg (285-295) H 11/16/23 08:17 Calcium 9.1 mg/dL (8.5-10.5) 11/16/23 08:17 All radiology interpretation(s) finalized by discharge Discharge Plan Discharge Patient Disposition: Home Clinical Impression: Acute seasonal allergic rhinitis, Mild reactive airways disease Condition: Stable Prescriptions: New albuterol sulfate [Ventolin HFA] 90 mcg/actuation HFA aerosol inhaler 2 inh inhalation Q6H PRN (Reason: shortness of breath or wheezing) Qty: 8.5 0RF dexamethasone 4 mg tablet 8 mg PO DAILY Qty: 2 0RF No Action diclofenac sodium 1 % gel 4 g topical QID Qty: 100 5RF Rx Instructions: apply to single knee, ankle, knee, foot; for foot includes sole/toes/top of foot diclofenac sodium 75 mg tablet,delayed release (DR/EC) 75 mg PO BID PRN (Reason: pain) Qty: 60 5RF cyclobenzaprine 10 mg tablet 10 mg PO DAILY PRN (Reason: muscle spasm) Qty: 90 1RF losartan 50 mg tablet 50 mg PO DAILY Qty: 90 1RF metoprolol tartrate 25 mg tablet 25 mg PO BID Qty: 180 1RF azithromycin 250 mg tablet See Rx Instructions PO .COMPLEX Qty: 6 0RF Rx Instructions: For 250 mg dose pack: take 500 mg today (day 1), then 250 mg for 4 days (days 2-5) PO (DME) hinged knee brace See Rx Instructions .Route .MEDSUPPLY Qty: 1 0RF Rx Instructions: As directed (DME) Rollator Walker See Rx Instructions .Route .MEDSUPPLY Qty: 1 0RF Rx Instructions: As directed multivitamin Tablet 1 tab PO DAILY milk thistle 500 mg Capsule 500 mg PO DAILY Rx Instructions: give with meal/snack cholecalciferol (vitamin D3) [Vitamin D3] 10 mcg (400 unit) Tablet 10 mcg PO DAILY vitamin B complex Capsule 1 cap PO DAILY vitamin A 10,000 unit Tablet 10,000 unit PO DAILY omega-3 fatty acids Capsule 1,000 mg PO DAILY aspirin 81 mg Capsule 162 mg PO DAILY zinc acetate 25 mg (zinc) Capsule 25 mg PO DAILY magnesium 200 mg Tablet 200 mg PO DAILY Discharge Orders: Discharge ED (Routine); Ordered 11/16/23 Ordered By: Lawrence Delcid Referrals: Cathleen Kline FNP-C [Primary Care Provider] - Discharge Diet: Usual diet Discharge Activity: Resume usual activity Patient Instructions: Opioid Safety, Pain Management, Reactive Airways Disease (ED), Allergies (ED) Activity Restrictions/Additional Instructions: Please use prescribed inhaler every 6 hours while you are awake for the next 24 hours then as needed. Please take your dexamethasone 1 dose tonight or tomorrow. Please start and antiallergy medication such as Zyrtec, Bel or Claritin as directed on package. Follow-up with your primary care provider in about a week for recheck of your symptoms. Coding Level of Care Code ED Financial Representative for Louie Reyes
[2023-11-16 09:00] VITALS: BP 125/89; PULSE 73; O2SAT 99
[2023-11-16] MEDS: ondansetron 4 MG Tablet PO (09:25)
[2023-11-16 10:00] VITALS: BP 134/82; PULSE 66; O2SAT 98
[2023-11-16 10:20] VITALS: BP 117/73; PULSE 63; O2SAT 98
== END 2023-11-16 10:22 | disposition home or self-care (01) ==
PROVIDERS: Emergency Provider Student in an Organized Health Care Education/Training Program; PCP Nurse Practitioner Family
DX: J30.2 Other seasonal allergic rhinitis (principal); J45.909 Unspecified asthma, uncomplicated; Z79.82 Long term (current) use of aspirin; I10 Essential (primary) hypertension
CPT/HCPCS: 36415; 71046; 80048; 85025; 93005; 99285; Q0162

== ENCOUNTER → 2024-01-20 13:23 | Outpatient (BNVA) | payer MEDICARE, SELFPAY | PROVIDERS: PCP Nurse Practitioner Family; Visit Provider Nurse Practitioner | DX: M25.561 Pain in right knee (principal); M25.562 Pain in left knee; M17.0 Bilateral primary osteoarthritis of knee; M23.51 Chronic instability of knee, right knee; M51.16 Intervertebral disc disorders with radiculopathy, lumbar region | CPT/HCPCS: 73560; 73565; 99214 ==

== ENCOUNTER → 2024-03-11 11:20 | Outpatient (BNVA) | payer MEDICARE, SELFPAY | PROVIDERS: PCP Nurse Practitioner; Visit Provider Nurse Practitioner | DX: I10 Essential (primary) hypertension (principal); D64.9 Anemia, unspecified | CPT/HCPCS: 80053; 80061; 82607; 82728; 82746; 83010; 83550; 83615; 84238; 84443; 85025; 85045 ==

== ENCOUNTER 2024-03-24 13:23 | Oncology outpatient (recurring) (ONCR) | payer MEDICARE, MEDICAID, SELFPAY ==
[2024-03-24 14:22] LABS: Basophils % 0.5 %; Eosinophils # 0.2 10^3/uL (0.0-0.8); Eosinophils % 4.2 %; Hematocrit 35.3 % (36-47); Lymphocytes # 2.2 10^3/uL (0.8-4.8); Lymphocytes % 39.5 %; Mean Corpuscular HGB Conc 32.9 g/dL (30-55); Mean Corpuscular Hemoglobin 33.1 pg (27-33); Mean Corpuscular Volume 100.9 fl (85-98); Mean Platelet Volume 9.7 fL (7.4-10.4); Monocytes # 0.6 10^3/uL (0.2-0.9); Neutrophils # 2.51 10^3/uL (1.8-7.7); Neutrophils % 45.4 %; Nucleated Red Blood Cells % 0 %; Platelet Count 208 10^3/cmm (157-399); Red Cell Distribution Width 14.5 % (12.1-15.1); Reticulocyte % 2.3 % (0.5-2.0); White Blood Count 5.52 10^3/uL (3.29-11.43)
[2024-03-24 14:44] LABS: Alanine Aminotransferase 24 U/L (0-33); Alkaline Phosphatase 74 U/L (35-105); Anion Gap 11.4 (5-19); Aspartate Amino Transferase 32 U/L (0-32); Blood Urea Nitrogen 15 mg/dL (8-23); Calcium 9.1 mg/dL (8.5-10.5); Carbon Dioxide 29 mmol/L (22-29); Chloride 103 mmol/L (98-107); Creatinine Clr Calc Pharmacy 84.0641; Ferritin 791 ng/mL (15-150); Globulin 2.2 g/dL (1.3-4.6); Glomerular Filtration Rate 83.7 mL/min (90-130); Glucose 106 mg/dL (65-115); Iron 107 ug/dL (37-145); Lactate Dehydrogenase 159 U/L (135-214); Osmolality Calculated 289 mOsm/kg (285-295); Percent Saturation 41.4 % (20-50); Potassium 4.4 mmol/L (3.5-5.1); Sodium 139 mmol/L (136-145); Total Bilirubin 0.3 mg/dL (0.15-1.2); Total Iron Binding Capacity 258 mcg/dl; Total Protein 6.2 g/dL (6.6-8.7); Unsaturated Iron Binding 151 ug/dL (112-347)
[2024-03-24 14:58] LABS: Vitamin B12 566 pg/mL (232-1245)
[2024-03-24 15:27] LABS: Folate Level 17.6 ng/mL (4.8-37.3)
[2024-03-30 13:05] LABS: Soluble Transferrin Receptor 0.96 mg/L (0.76-1.76)
== END 2024-03-26 23:59 | disposition home or self-care (01) ==
PROVIDERS: PCP Nurse Practitioner Family; Visit Provider Internal Medicine Hematology & Oncology
DX: D64.9 Anemia, unspecified (principal); I48.91 Unspecified atrial fibrillation
CPT/HCPCS: 36415; 80053; 82607; 82728; 82746; 83010; 83540; 83550; 83615; 84238; 85025; 85045; 99204

== ENCOUNTER → 2024-06-10 11:57 | Outpatient (BNVA) | payer MEDICARE, MEDICAID, SELFPAY | PROVIDERS: PCP Nurse Practitioner; Visit Provider Nurse Practitioner | DX: I10 Essential (primary) hypertension (principal); E55.9 Vitamin D deficiency, unspecified; D53.9 Nutritional anemia, unspecified | CPT/HCPCS: 80053; 80061; 82306; 83540; 85025 ==

== ENCOUNTER 2024-06-23 12:22 | Oncology outpatient (recurring) (ONCR) | payer MEDICARE, SELFPAY ==
[2024-06-23 12:48] LABS: Basophils % 0.6 %; Eosinophils # 0.4 10^3/uL (0.0-0.8); Eosinophils % 6.3 %; Hematocrit 39.6 % (36-47); Lymphocytes # 2.9 10^3/uL (0.8-4.8); Mean Corpuscular HGB Conc 32.6 g/dL (30-55); Mean Corpuscular Hemoglobin 32.9 pg (27-33); Mean Platelet Volume 9.8 fL (7.4-10.4); Monocytes # 0.4 10^3/uL (0.2-0.9); Monocytes % 6.2 %; Neutrophils # 3.04 10^3/uL (1.8-7.7); Neutrophils % 44.6 %; Nucleated Red Blood Cells % 0 %; Platelet Count 296 10^3/cmm (157-399); Red Blood Count 3.92 10^6/uL (3.85-5.65); Red Cell Distribution Width 13.5 % (12.1-15.1); White Blood Count 6.81 10^3/uL (3.29-11.43)
[2024-06-23 13:07] LABS: Alanine Aminotransferase 23 U/L (0-33); Albumin Level 3.9 g/dL (3.5-5.2); Alkaline Phosphatase 85 U/L (35-105); Anion Gap 11.2 (5-19); Aspartate Amino Transferase 26 U/L (0-32); Blood Urea Nitrogen 8 mg/dL (8-23); Calcium 9.5 mg/dL (8.5-10.5); Carbon Dioxide 30 mmol/L (22-29); Chloride 103 mmol/L (98-107); Ferritin 705 ng/mL (15-150); Globulin 2.9 g/dL (1.3-4.6); Glomerular Filtration Rate 159.7 mL/min (90-130); Glucose 87 mg/dL (65-115); Iron 67 ug/dL (37-145); Lactate Dehydrogenase 139 U/L (135-214); Osmolality Calculated 288 mOsm/kg (285-295); Percent Saturation 25.3 % (20-50); Potassium 4.2 mmol/L (3.5-5.1); Sodium 140 mmol/L (136-145); Total Bilirubin 0.3 mg/dL (0.15-1.2); Total Iron Binding Capacity 264 mcg/dl; Total Protein 6.8 g/dL (6.6-8.7); Unsaturated Iron Binding 197 ug/dL (112-347)
[2024-06-23 13:22] LABS: Vitamin B12 723 pg/mL (232-1245)
[2024-06-23 13:40] LABS: Folate Level 9.1 ng/mL (4.8-37.3)
== END 2024-06-26 23:59 | disposition home or self-care (01) ==
PROVIDERS: Internal Medicine Medical Oncology; PCP Nurse Practitioner; Visit Provider Internal Medicine Hematology & Oncology
DX: D53.9 Nutritional anemia, unspecified (principal); I48.91 Unspecified atrial fibrillation; Z87.891 Personal history of nicotine dependence; R79.0 Abnormal level of blood mineral; D75.89 Other specified diseases of blood and blood-forming organs
CPT/HCPCS: 36415; 80053; 82607; 82728; 82746; 83540; 83550; 83615; 85025; 99214

== ENCOUNTER 2024-06-29 12:20 | Outpatient (CLI) | payer MEDICARE, SELFPAY ==
--- NOTE | 2024-06-29 13:00 | MM_ITS ---
WS: [id number] BILATERAL 3D TOMOSYNTHESIS DIGITAL SCREENING MAMMOGRAPHY WITH CAD CLINICAL INFORMATION: Z12.31 - Encounter for screening mammogram for malignant ... HISTORY: Screening mammogram. No current complaints. COMPARISON: 2022 TECHNIQUE: Bilateral CC and MLO views. FINDINGS: Scattered fibroglandular densities bilaterally. No suspicious focal mass, asymmetry, calcifications, or architectural distortion. No evidence of malignancy. Vascular calcification. Previously biopsied p artially calcified lesion in RIGHT breast is unchanged. Associated biopsy marker. MM/MM scr tomosynthesis [id number] IMPRESSION: DENSITY: There are scattered areas of fibroglandular density. BI-RADS: 2 - Benign. FOLLOW UP: 1 Year Follow-up Recommend return to annual screening mammography.
== END 2024-06-29 12:21 | disposition home or self-care (01) ==
LOC: RAD 12:22
PROVIDERS: PCP Nurse Practitioner; Visit Provider Nurse Practitioner
DX: Z12.31 Encounter for screening mammogram for malignant neoplasm of breast (principal); R92.323 Mammographic fibroglandular density, bilateral breasts; R92.1 Mammographic calcification found on diagnostic imaging of breast; N64.9 Disorder of breast, unspecified
CPT/HCPCS: 77063; 77067

== ENCOUNTER 2024-07-19 23:17 | Emergency (ER) | payer MEDICARE, SELFPAY ==
[2024-07-19 23:19] VITALS: BP 99/53; PULSE 66; RESP 14; TEMP 36.7; O2SAT 96; BMI 42.5
--- NOTE | 2024-07-19 23:31 | ECG_ITS ---
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
--- NOTE | 2024-07-19 23:40 | XRR_ITS ---
PROCEDURE INFORMATION: Exam: XR Chest Exam date and time: 07/19/2024 11:50 PM Age: 64 years old Clinical indication: Chest pressure; Prior surgery; Surgery date: 6+ months; Surgery type: Splenectomy; C/O chest pain; Additional info: Cp TECHNIQUE: Imaging protocol: Radiologic exam of the chest. Views: 1 view. COMPARISON: CR XR chest 2V* [id number] 11/16/2023 8:20 AM FINDINGS: Lungs: Unremarkable. Pleural spaces: Unremarkable. Heart/Mediastinum: Nonenlarged heart. Bones/joints: No acute fracture. Unchanged right AC joint widening. XR/XR chest 1V portable [id number] IMPRESSION: No acute abnormality.
--- NOTE | 2024-07-20 00:05 | W.ED.CHESTPA ---
HPI - Chest Pain General: Chief Complaint: Chest Pain Stated Complaint: CP Time Seen by Provider: 07/19/24 23:25 History of Present Illness: 64-year-old female no prior history of coronary disease. She presents with chest discomfort after a worsening of her chronic lower back and hip pain at home. She had an episode where the pain went to 10 she says, and shot up into her chest. She had some pressure in her chest with some transient shortness of breath. This is resolved. She received aspirin, nitroglycerin, and Nitropaste in the ambulance. Now her only concern is her chronic hip and back pain. Related Data Home Medications ?Medication ?Instructions ?Recorded ?Confirmed ascorbic acid (vitamin C) 1,000 mg 1 g PO Q6H 06/23/24 06/23/24 capsule omega 9-jes-dai-fish oil 60 mg-90 1 cap PO DAILY 06/23/24 06/23/24 mg-500 mg capsule (Fish Oil) red yeast rice 600 mg capsule 600 mg PO DAILY 06/23/24 06/23/24 vitamin B complex (Complex B-100 1 tab PO DAILY 06/23/24 06/23/24 tablet,extended release) Previous Rx's ?Medication ?Instructions ?Recorded Rollator Walker #1 ea 07/24/23 cyclobenzaprine 10 mg tablet 10 mg PO DAILY PRN muscle spasm 03/11/24 #90 tabs losartan 100 mg tablet 100 mg PO DAILY #90 tabs 06/10/24 metoprolol tartrate 25 mg tablet 25 mg PO BID #180 tabs 06/10/24 naltrexone 50 mg tablet 50 mg PO DAILY #30 tabs 06/10/24 ketorolac 10 mg tablet 10 mg PO TID PRN pain #10 tabs 07/20/24 Allergies Allergy/AdvReac Type Severity Reaction Status Date / Time cephalexin (From Keflex) Allergy ADR-Nausea Verified 06/23/24 14:06 hydrocodone (From Vicodin) Allergy ADR-Nausea Verified 06/23/24 14:06 propoxyphene (From Darvon) Allergy ADR-Nausea Verified 06/23/24 14:06 zolpidem (From Ambien) Allergy ADR-Agitate Verified 06/23/24 14:06 d [facility] ED PFSH: Medical History Atrial fibrillation Obesity, morbid, BMI 40.0-49.9 Primary osteoarthritis of left knee Recurrent right knee instability HTN (hypertension) Surgical History History of shoulder surgery History of surgery on lower extremity History of right hip replacement Status post splenectomy Family History Mother CAD (coronary artery disease) S/P CABG x 3 Father Stroke Social History Smoking and tobacco/nicotine status: former use of tobacco/nicotine Alcohol intake: current Alcohol intake frequency: 0-2 Drinks per Day Alcohol type: beer, hard liquor and other Substance/Drug Use: never Lives independently: Yes Household members: none Marital status: Physical Exam Const: COMMON NORMALS: no acute distress GENERAL APPEARANCE: cooperative; not ill appearing and not frail appearing HENMT: COMMON NORMALS: normocephalic, atraumatic and Normal external nose present HEAD & SCALP: normocephalic and atraumatic FACE & SINUS: normal facial exam and face symmetric NOSE: Normal external nose present Eye: COMMON NORMALS: Equal, round and reactive pupils present and EOMs intact bilaterally PUPIL: Yes Equal, round and reactive pupils present Neck/C-Spine: GENERAL: Yes trachea midline Chest: CHEST: Yes Symmetrical chest wall rise Resp: COMMON NORMALS: normal respiratory effort, No retractions, No use of accessory muscles and clear to auscultation bilaterally AUSCULTATION: clear to auscultation bilaterally Cardio: COMMON NORMALS: regular rate and regular rhythm RATE: regular rate RHYTHM: regular rhythm GI: COMMON NORMALS: Normal to inspection, nondistended, normoactive bowel sounds present Extremity: COMMON NORMALS: no pedal edema Neuro: NICKY COMA SCALE: document GCS findings Nicky coma scale eye opening: Spontaneous [place] coma scale verbal response: Orientated Nicky coma scale motor response: Obey commands Nicky coma scale total score: 15 SENSORY EXAM: Yes extremities (intact) Psych: COMMON NORMALS: speech normal SPEECH: Yes normal speech Skin: COMMON NORMALS: no rashes or lesions noted GENERAL SKIN EXAM: no rashes or lesions noted Course Vital Signs: Vital signs: Vital Signs Temperature 98.0 F 07/19/24 23:19 Pulse Rate 72 07/20/24 00:15 Respiratory Rate 16 07/20/24 00:17 Blood Pressure 98/57 07/20/24 00:15 Pulse Oximetry 95 07/20/24 00:17 Oxygen Delivery Me thod Room Air 07/19/24 23:19 MDM - Chest Pain Medical Decision Making 64-year-old female with chronic back and hip pain. She presents after brief episode of chest discomfort. Her troponin is nondetectable. BNP is nondetectable. Her EKG is normal. Chest x-ray shows no acute abnormality. CBC and BMP are normal. Liver enzymes are normal. She will be allowed discharge. She was given morphine for her back pain. Pain is resolved after morphine. She does take naltrexone. She will be given a prescription for Toradol for pain for the next few days. She is encouraged to follow-up. Lab Data 07/20/24 00:08 07/20/24 00:08 Radiology Impressions Chest X-Ray 07/19/24 23:40 IMPRESSION: No acute abnormality. Laboratory Results WBC 7.39 10^3/uL (3.29-11.43) 07/20/24 00:08 RBC 3.81 10^6/uL (3.85-5.65) L 07/20/24 00:08 Hgb 12.40 g/dL (11.27-16.99) 07/20/24 00:08 Hct 38.0 % (36-47) 07/20/24 00:08 MCV 99.7 fl (85-98) H 07/20/24 00:08 MCH 32.5 pg (27-33) 07/20/24 00:08 MCHC 32.6 g/dL (30-55) 07/20/24 00:08 RDW 13.9 % (12.1-15.1) 07/20/24 00:08 Plt Count 301 10^3/cmm (157-399) 07/20/24 00:08 MPV 9.4 fL (7.4-10.4) 07/20/24 00:08 Neut % (Auto) 43.7 % 07/20/24 00:08 Lymph % (Auto) 43.8 % 07/20/24 00:08 [place] % (Auto) 7.4 % 07/20/24 00:08 Eos % (Auto) 4.2 % 07/20/24 00:08 Baso % (Auto) 0.5 % 07/20/24 00:08 Neut # (Auto) 3.22 10^3/uL (1.8-7.7) 07/20/24 00:08 Lymph # (Auto) 3.2 10^3/uL (0.8-4.8) 07/20/24 00:08 [place] # (Auto) 0.6 10^3/uL (0.2-0.9) 07/20/24 00:08 Eos # (Auto) 0.3 10^3/uL (0.0-0.8) 07/20/24 00:08 Baso # (Auto) 0.0 10^3/uL (0.0-0.1) 07/20/24 00:08 Nucleated RBC % (auto) 0 % 07/20/24 00:08 Nucleated RBCs # 0.0 /100WBC 07/20/24 00:08 PT 11.30 SECONDS (12.1-14.9) L 07/20/24 00:08 INR 0.77 (0.8-1.2) L 07/20/24 00:08 APTT 26.5 SECONDS (23.9-36.7) 07/20/24 00:08 Sodium 139 mmol/L (136-145) 07/20/24 00:08 Potassium 3.8 mmol/L (3.5-5.1) 07/20/24 00:08 Chloride 104 mmol/L (98-107) 07/20/24 00:08 Carbon Dioxide 25 mmol/L (22-29) 07/20/24 00:08 Anion Gap 13.8 (5-19) 07/20/24 00:08 BUN 18 mg/dL (8-23) 07/20/24 00:08 Creatinine 0.6 mg/dL (0.5-0.9) 07/20/24 00:08 GFR Calculation 100.0 mL/min (90-130) 07/20/24 00:08 Glucose 105 mg/dL (65-115) 07/20/24 00:08 Calculated Osmolality 290 mOsm/kg (285-295) 07/20/24 00:08 Calcium 9.0 mg/dL (8.5-10.5) 07/20/24 00:08 Total Bilirubin 0.4 mg/dL (0.15-1.2) 07/20/24 00:08 AST 19 U/L (0-32) 07/20/24 00:08 ALT 13 U/L (0-33) 07/20/24 00:08 Alkaline Phosphatase 78 U/L (35-105) 07/20/24 00:08 Troponin T Baseline < 6 ng/L (0-10) 07/20/24 00:08 NT-Pro-B Natriuret Pep < 36 pg/mL (0-125) 07/20/24 00:08 Total Protein 6.6 g/dL (6.6-8.7) 07/20/24 00:08 Albumin 3.9 g/dL (3.5-5.2) 07/20/24 00:08 Globulin 2.7 g/dL (1.3-4.6) 07/20/24 00:08 Urine Color Dark yellow (Yellow) A 07/20/24 00:56 Urine Appearance Cloudy (CLEAR) A 07/20/24 00:56 Urine pH 5.5 (5-7) 07/20/24 00:56 Ur Specific Preemption 1.025 (1.005-1.030) 07/20/24 00:56 Urine Protein Trace (Negative) A 07/20/24 00:56 Urine Glucose (UA) Negative (Normal) 07/20/24 00:56 Urine Ketones Trace (Negative) 07/20/24 00:56 Urine Blood Negative (Negative) 07/20/24 00:56 Urine Nitrate Negative (Negative) 07/20/24 00:56 Urine Bilirubin 1+ (Negative) H 07/20/24 00:56 Urine Urobilinogen 1.0 mg/dL (Negative) 07/20/24 00:56 Ur Leukocyte Esterase 1+ (Negative) A 07/20/24 00:56 Urine RBC 0-4 /hpf (0-2) H 07/20/24 00:56 Urine WBC 0-4 /hpf (0-5) H 07/20/24 00:56 Ur Squamous Epith Cells 5-10 /hpf (0-5) H 07/20/24 00:56 Amorphous Sediment Not Reportable 07/20/24 00:56 Urine Bacteria 1+ /hpf (NONE) H 07/20/24 00:56 All radiology interpretation(s) finalized by discharge Discharge Plan Discharge Patient Disposition: Home Clinical Impression: Chest pain, Lumbar disc disease with radiculopathy Condition: Stable Prescriptions: New ketorolac 10 mg tablet 10 mg PO TID PRN (Reason: pain) Qty: 10 0RF No Action cyclobenzaprine 10 mg tablet 10 mg PO DAILY PRN (Reason: muscle spasm) Qty: 90 1RF losartan 100 mg tablet 100 mg PO DAILY Qty: 90 1RF naltrexone 50 mg tablet 50 mg PO DAILY Qty: 30 0RF metoprolol tartrate 25 mg tablet 25 mg PO BID Qty: 180 1RF Complex B-100 Tablet Extended Release 1 tab PO DAILY ascorbic acid (vitamin C) 1,000 mg capsule 1 g PO Q6H omega 7-wzg-nxt-fish oil [Fish Oil] 60-90-500 mg capsule 1 cap PO DAILY red yeast rice 600 mg capsule 600 mg PO DAILY Rx Instructions: give with meal/snack (DME) Rollator Walker See Rx Instructions .Route .MEDSUPPLY Qty: 1 0RF Rx Instructions: As directed Discharge Orders: Discharge ED (Routine); Ordered 07/20/24 Ordered By: Lm Warner Referrals: Frank Carrasco, ARRANGING FUNERAL DIRECTOR-C [Primary Care Provider] - 1-3 days Patient Instructions: Back Pain (ED), Opioid Safety, Pain Management Activity Restrictions/Additional Instructions: Return for repeated episodes of chest discomfort, shortness of breath, fever, other concerning symptoms. Follow-up with your doctor this week. Call tomorrow for an appointment. Print Language: Albanian Coding Level of Care Code ED Fitness And Wellness Manager for Louie Reyes
[2024-07-20 00:15] VITALS: BP 98/57; PULSE 72; RESP 23; O2SAT 97
[2024-07-20 00:17] VITALS: RESP 16; O2SAT 95
[2024-07-20] MEDS: ondansetron 2 mg/ML SDV 2 mL 4 MG IVP (00:17)
[2024-07-20] MEDS: morphine 4 mg/mL SDV 1 mL IVP (00:17)
[2024-07-20 00:23] LABS: INR 0.77 (0.8-1.2)
[2024-07-20 00:24] LABS: Basophils % 0.5 %; Eosinophils # 0.3 10^3/uL (0.0-0.8); Eosinophils % 4.2 %; Lymphocytes # 3.2 10^3/uL (0.8-4.8); Lymphocytes % 43.8 %; Mean Corpuscular HGB Conc 32.6 g/dL (30-55); Mean Corpuscular Hemoglobin 32.5 pg (27-33); Mean Corpuscular Volume 99.7 fl (85-98); Mean Platelet Volume 9.4 fL (7.4-10.4); Monocytes # 0.6 10^3/uL (0.2-0.9); Monocytes % 7.4 %; Neutrophils # 3.22 10^3/uL (1.8-7.7); Neutrophils % 43.7 %; Nucleated Red Blood Cells % 0 %; Partial Thromboplastin Time 26.5 SECONDS (23.9-36.7); Platelet Count 301 10^3/cmm (157-399); Red Blood Count 3.81 10^6/uL (3.85-5.65); Red Cell Distribution Width 13.9 % (12.1-15.1); White Blood Count 7.39 10^3/uL (3.29-11.43)
[2024-07-20 00:31] LABS: Troponin(5th) Baseline < 6 ng/L (0-10)
[2024-07-20 00:41] LABS: Alanine Aminotransferase 13 U/L (0-33); Albumin Level 3.9 g/dL (3.5-5.2); Alkaline Phosphatase 78 U/L (35-105); Anion Gap 13.8 (5-19); Aspartate Amino Transferase 19 U/L (0-32); Blood Urea Nitrogen 18 mg/dL (8-23); Carbon Dioxide 25 mmol/L (22-29); Chloride 104 mmol/L (98-107); Creatinine Clr Calc Pharmacy 81.8844; Globulin 2.7 g/dL (1.3-4.6); Glucose 105 mg/dL (65-115); NT Pro B Type Natriuretic Pept < 36 pg/mL (0-125); Osmolality Calculated 290 mOsm/kg (285-295); Potassium 3.8 mmol/L (3.5-5.1); Sodium 139 mmol/L (136-145); Total Bilirubin 0.4 mg/dL (0.15-1.2); Total Protein 6.6 g/dL (6.6-8.7)
[2024-07-20 01:12] LABS: Bilirubin Urine 1+ (Negative); Blood Urine Negative (Negative); Glucose Urine UA Negative (Normal); Ketones Urine Trace (Negative); Leukocyte Esterase Urine 1+ (Negative); Nitrate Urine Negative (Negative); Protein Urine Trace (Negative); Specific Gravity, Urine 1.025 (1.005-1.030); Urine Appearance Cloudy (CLEAR); Urine Color Dark Yellow (Yellow); pH Urine 5.5 (5-7)
[2024-07-20 01:32] LABS: Add Urine Microscopic? YES; Bacteria Urine 1+ /hpf; RBC Urine 0-4 /hpf (0-2); WBC Urine 0-4 /hpf (0-5)
[2024-07-20 01:48] VITALS: BP 148/90; PULSE 95; RESP 17; O2SAT 98
== END 2024-07-20 01:49 | disposition home or self-care (01) ==
PROVIDERS: Emergency Provider Emergency Medicine; PCP Nurse Practitioner
DX: R07.9 Chest pain, unspecified (principal); M51.16 Intervertebral disc disorders with radiculopathy, lumbar region; Z87.891 Personal history of nicotine dependence; Z95.1 Presence of aortocoronary bypass graft; I10 Essential (primary) hypertension
CPT/HCPCS: 71045; 80053; 81001; 83880; 84484; 85025; 85610; 85730; 93005; 96374; 96375; 99285; J2270; J2405

== ENCOUNTER → 2024-07-28 10:06 | Outpatient (BNVA) | payer MEDICARE, SELFPAY | PROVIDERS: PCP Nurse Practitioner; Visit Provider Anesthesiology Pain Medicine | DX: M51.16 Intervertebral disc disorders with radiculopathy, lumbar region (principal); M47.816 Spondylosis without myelopathy or radiculopathy, lumbar region | CPT/HCPCS: 99214 ==

== ENCOUNTER → 2024-08-03 14:42 | Outpatient (BNVA) | payer MEDICARE, SELFPAY | PROVIDERS: PCP Nurse Practitioner; Visit Provider Anesthesiology Pain Medicine | DX: M79.18 Myalgia, other site (principal); M54.9 Dorsalgia, unspecified; M51.16 Intervertebral disc disorders with radiculopathy, lumbar region; M47.816 Spondylosis without myelopathy or radiculopathy, lumbar region; Z87.891 Personal history of nicotine dependence | CPT/HCPCS: 20553; 99214; J1010; J3490 ==

== ENCOUNTER → 2024-08-31 15:36 | Outpatient (BNVA) | payer MEDICARE, SELFPAY | PROVIDERS: PCP Nurse Practitioner; Visit Provider Anesthesiology Pain Medicine | DX: M54.9 Dorsalgia, unspecified (principal); M51.16 Intervertebral disc disorders with radiculopathy, lumbar region; M47.816 Spondylosis without myelopathy or radiculopathy, lumbar region; Z87.891 Personal history of nicotine dependence | CPT/HCPCS: 99214 ==

== ENCOUNTER → 2024-10-12 10:23 | Outpatient (BNVA) | payer MEDICARE, SELFPAY | PROVIDERS: PCP Nurse Practitioner; Visit Provider Clinical Nurse Specialist Adult Health | DX: Z91.89 Other specified personal risk factors, not elsewhere classified (principal) | CPT/HCPCS: 86618; 86666; 86757 ==

== ENCOUNTER → 2024-11-19 14:18 | Outpatient (BNVA) | payer MEDICARE, SELFPAY | PROVIDERS: PCP Nurse Practitioner; Visit Provider Nurse Practitioner | DX: Z13.6 Encounter for screening for cardiovascular disorders (principal); D53.9 Nutritional anemia, unspecified; R19.7 Diarrhea, unspecified; I48.91 Unspecified atrial fibrillation | CPT/HCPCS: 80053; 80061; 82607; 82728; 82746; 83550; 84155; 84165; 84443; 85025; 86334 ==

== ENCOUNTER 2024-11-25 18:24 | Emergency (ER) | payer OTHER, SELFPAY ==
[2024-11-25 18:25] VITALS: BP 163/86; PULSE 56; RESP 18; O2SAT 95; BMI 54.9
--- NOTE | 2024-11-25 18:51 | CTR_ITS ---
PROCEDURE INFORMATION: Exam: CT Head Without Contrast Exam date and time: 11/25/2024 7:35 PM Age: 64 years old Clinical indication: Pain; Headache; Migraine; Without aura; Does respond to medication; Additional info: Headache, atypical TECHNIQUE: Imaging protocol: Computed tomography of the head without contrast. Radiation optimization: All CT scans at this facility use at least one of these dose optimization techniques: automated exposure control; mA and/or kV adjustment per patient size (includes targeted exams where dose is matched to clinical indication); or iterative reconstruction. COMPARISON: No relevant prior studies available. RADIATION DOSE METRICS: Total DLP (mGy-cm): 1314.31 FINDINGS: Brain: Mild generalized cortical volume loss. No hemorrhage. Periventricular and subcortical white matter hypodensities likely represent chronic small vessel ischemic changes. No mass effect. Cerebral ventricles: No ventriculomegaly. Paranasal sinuses: Mucosal thickening in bilateral maxillary sinuses and ethmoid air cells. No air-fluid levels. Mastoid air cells: Visualized mastoid air cells are well aerated. Bones: Unremarkable. No acute fracture. Soft tissues: Unremarkable. Vasculature: Vascular calcifications along the carotid siphons. CT/CT head wo con* [id number] IMPRESSION: 1. No acute intracranial abnormality. 2. Mild paranasal sinus disease.
[2024-11-25 19:05] LABS: Hematocrit 36.9 % (36-47); Hemoglobin 12.30 g/dL (11.27-16.99); Mean Corpuscular HGB Conc 33.3 g/dL (30-55); Mean Corpuscular Hemoglobin 33.2 pg (27-33); Mean Corpuscular Volume 99.5 fl (85-98); Nucleated Red Blood Cells % 0 %; Platelet Count 198 10^3/cmm (157-399); Red Blood Count 3.71 10^6/uL (3.85-5.65); White Blood Count 6.13 10^3/uL (3.29-11.43)
[2024-11-25] MEDS: diphenhydrAMINE 50 mg/mL SDV 1mL IVP (19:06)
[2024-11-25 19:09] VITALS: BP 187/95; PULSE 61; RESP 18; O2SAT 94
[2024-11-25 19:18] LABS: Alanine Aminotransferase 17 U/L (0-33); Albumin Level 3.8 g/dL (3.5-5.2); Alkaline Phosphatase 77 U/L (35-105); Anion Gap 21.7 (5-19); Aspartate Amino Transferase 28 U/L (0-32); Blood Urea Nitrogen 14 mg/dL (8-23); Calcium 8.9 mg/dL (8.5-10.5); Carbon Dioxide 18 mmol/L (22-29); Chloride 104 mmol/L (98-107); Creatinine Clr Calc Pharmacy 95.7539; Globulin 2.7 g/dL (1.3-4.6); Glucose 101 mg/dL (65-115); Osmolality Calculated 291 mOsm/kg (285-295); Potassium 3.7 mmol/L (3.5-5.1); Sodium 140 mmol/L (136-145); Total Protein 6.5 g/dL (6.6-8.7)
--- NOTE | 2024-11-25 19:23 | ECG_ITS ---
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 Measurements Intervals [place] Rate: 58 P: 52 OR: 175 QRS: 15 QRSD: 97 T: 46 QT: 447 QTc: 440 Interpretive Statements SINUS BRADYCARDIA POSSIBLE LEFT ATRIAL ENLARGEMENT [-0.1mV P-WAVE IN V1/V2] Compared to ECG 07/19/2024 23:25:10 No significant changes Electronically Signed On 11-26-2024 08:53:20 CDT by Roc Rivera M.D. [email or web address] [id number]
--- NOTE | 2024-11-25 21:28 | ED_ITS ---
HPI - Headache 2 General: Chief Complaint: Headache Stated Complaint: HTN, SMITH Time Seen by Provider: 11/25/24 18:34 History of Present Illness: Pt with Hx of HTN presents to the ED with new-onset headache and elevated BP. Pt reports not typically experiencing headaches and describes this as unusual. Over the past few days, pt has had increased social interaction, leading to anxiety for which two different anxiety medications were trialed; both were discontinued due to side effects, including elevated heart rate. Last night, pt consumed approximately four drinks (vodka) with friends. This morning, BP was 147/87 with HR 66. Pt monitors BP four times daily and is attempting to reduce antihypertensive use through diet, exercise, and supplements. At 2 PM, pt developed a headache as BP increased to 167 systolic, then later to 187 despite taking 100 mg and then 50 mg of losartan. Pt also took a muscle relaxant for degenerative disc disease, but symptoms persisted. Pt denies prior history of headaches, reports some blurry vision, and does not routinely seek medical care. No chest pain, SOB, or other acute symptoms reported. Pt is motivated to avoid statins and prefers lifestyle modification. Related Data Home Medications ?Medication ?Instructions ?Recorded ?Confirmed ascorbic acid (vitamin C) 1,000 mg 1 g PO Q6H 06/23/24 11/19/24 capsule Previous Rx's ?Medication ?Instructions ?Recorded Rollator Walker #1 ea 07/24/23 tizanidine 4 mg tablet 4 mg PO BID PRN muscle spast icity 11/18/24 #60 tabs topiramate 50 mg tablet 50 mg PO BID pain 30 days # 60 tabs 11/18/24 hydroxyzine pamoate 25 mg capsule 25 mg PO BID PRN anx iety #60 caps 11/19/24 losartan 50 mg tablet 50 mg PO DAILY #90 tabs 10/26 11/18 metoprolol tartrate 25 mg tablet See Rx Instructions P O BID #180 11/19/24 tabs Allergies Allergy/AdvReac Type Severity Reaction Status Date / Time cephalexin (From Keflex) Allergy ADR-Nausea Verified 11/19/24 13:23 hydrocodone (From Vicodin) Allergy ADR-Nausea Verified 11/19/24 13:23 propoxyphene (From Darvon) Allergy ADR-Nausea Verified 11/19/24 13:23 zolpidem (From Ambien) Allergy ADR-Agitate Verified 11/19/24 13:23 d PFSH ED 2 PFSH: Medical History Atrial fibrillation Obesity, morbid, BMI 40.0-49.9 Primary osteoarthritis of left knee Recurrent right knee instability HTN (hypertension) Surgical History History of shoulder surgery History of surgery on lower extremity History of right hip replacement Status post splenectomy Family History Mother CAD (coronary artery disease) S/P CABG x 3 Father Stroke Social History Smoking and tobacco/nicotine status: never used tobacco/nicotine (She states NEVER smoke) Alcohol intake: current Alcohol intake frequency: 0-2 Drinks per Day Alcohol type: beer, hard liquor and other Substance/Drug Use: never Adopted: No Caregiver/support person: No Lives independently: Yes Household members: significant other Housing: House Marital status: service: No Current occupational status: retired Do you think of yourself as: Straight/Heterosexual Current gender identity: Female Physical Exam 2 Const: COMMON NORMALS: no acute distress, patient oriented x3 and alert HENMT: COMMON NORMALS: normocephalic and atraumatic HEAD & SCALP: n ormocephalic and atraumatic Eye: COMMON NORMALS: Equal, round and reactive pupils present, EOMs intact bilaterally and no scleral icterus PUPIL: Yes Equal, round and reactive pupils present Resp: COMMON NORMALS: normal respiratory effort and No retractions Cardio: COMMON NORMALS: regular rate, regular rhythm and No murmurs present (Cardio) RATE: regular rate RHYTHM: regular rhythm GI: COMMON NORMALS: Normal to inspection, nondistended, normoactive bowel sounds present, Soft to palpation and non-tender PALPATION: Yes Soft to palpation Neuro: COMMON NORMALS: patient oriented x3 SENSORIUM/ORIENTATION: Yes alert Psych: OTHER: mildly anxious Skin: COMMON NORMALS: no rashes or lesions noted GENERAL SKIN EXAM: no rashes or lesions noted Course 2 Vital Signs: Vital signs: Vital Signs Pulse Rate 68 07/02/25 21:35 Respiratory Rate 17 11/25/24 21:35 Blood Pressure 149/81 11/25/24 21:35 Pulse Oximetry 94 11/25/24 21:35 Oxygen Delivery Me thod Room Air 11/25/24 19:09 MDM - Headache Medical Decision Making In summary, patient is seen for headache and accelerated hypertension which causes her some concern. She has no lateralizing deficits or visual field deficits to imply stroke. CT brain shows nothing acute. Headache is better with IV fluids and treatment. Blood pressure has come down with pain control of the headache. I do not appreciate any endorgan damage on the labs, EKG, or head CT. We discussed all this. She will continue to take daily blood pressure readings and follow-up with primary care not emergently to see whether they would like to augment her medication regimen. She shows good understanding and agrees to the plan Lab Data 11/25/24 18:55 11/25/24 18:[address] 11/25/24 18:51 IMPRESSION: 1. No acute intracranial abnormality. 2. Mild paranasal sinus disease. Laboratory Results WBC 6.13 10^3/uL (3.29-11.43) 11/25/24 18:55 RBC 3.71 10^6/uL (3.85-5.65) L 11/25/24 18:55 Hgb 12.30 g/dL (11.27-16.99) 11/25/24 18:55 Hct 36.9 % (36-47) 11/25/24 18:55 MCV 99.5 fl (85-98) H 11/25/24 18:55 MCH 33.2 pg (27-33) H 11/25/24 18:55 MCHC 33.3 g/dL (30-55) 11/25/24 18:55 RDW 13.6 % (12.1-15.1) 11/25/24 18:55 Plt Count 198 10^3/cmm (157-399) 11/25/24 18:55 MPV 9.7 fL (7.4-10.4) 11/25/24 18:55 Neut % (Auto) 52.4 % 11/25/24 18:55 Lymph % (Auto) 33.3 % 11/25/24 18:55 Moody % (Auto) 9.6 % 11/25/24 18:55 Eos % (Auto) 3.8 % 11/25/24 18:55 Baso % (Auto) 0.7 % 11/25/24 18:55 Neut # (Auto) 3.22 10^3/uL (1.8-7.7) 11/25/24 18:55 Lymph # (Auto) 2.0 10^3/uL (0.8-4.8) 11/25/24 18:55 Moody # (Auto) 0.6 10^3/uL (0.2-0.9) 11/25/24 18:55 Eos # (Auto) 0.2 10^3/uL (0.0-0.8) 11/25/24 18:55 Baso # (Auto) 0.0 10^3/uL (0.0-0.1) 11/25/24 18:55 Nucleated RBC % (auto) 0 % 11/25/24 18:55 Nucleated RBCs # 0.0 /100WBC 11/25/24 18:55 Sodium 140 mmol/L (136-145) 11/25/24 18:55 Potassium 3.7 mmol/L (3.5-5.1) 11/25/24 18:55 Chloride 104 mmol/L (98-107) 11/25/24 18:55 Carbon Dioxide 18 mmol/L (22-29) L 11/25/24 18:55 Anion Gap 21.7 (5-19) H 11/25/24 18:55 BUN 14 mg/dL (8-23) 11/25/24 18:55 Creatinine 0.5 mg/dL (0.5-0.9) 11/25/24 18:55 GFR Calculation 123.4 mL/min (90-130) 11/25/24 18:55 Glucose 101 mg/dL (65-115) 11/25/24 18:55 Calculated Osmolality 291 mOsm/kg (285-295) 11/25/24 18:55 Calcium 8.9 mg/dL (8.5-10.5) 11/25/24 18:55 Total Bilirubin 0.9 mg/dL (0.15-1.2) 11/25/24 18:55 AST 28 U/L (0-32) 11/25/24 18:55 ALT 17 U/L (0-33) 11/25/24 18:55 Alkaline Phosphatase 77 U/L (35-105) 11/25/24 18:55 Total Protein 6.5 g/dL (6.6-8.7) L 11/25/24 18:55 Albumin 3.8 g/dL (3.5-5.2) 11/25/24 18:55 Globulin 2.7 g/dL (1.3-4.6) 11/25/24 18:55 All radiology interpretation(s) finalized by discharge Discharge Plan Discharge Patient Disposition: Home Clinical Impression: Accelerated hypertension, Headache Condition: Stable Prescriptions: No Action ascorbic acid (vitamin C) 1,000 mg capsule 1 g PO Q6H losartan 50 mg tablet 50 mg PO DAILY Qty: 90 1RF metoprolol tartrate 25 mg tablet See Rx Instructions PO BID Qty: 180 1RF Rx Instructions: 12.5mg-25mg orally twice a day; no meds sent has at home hydroxyzine pamoate 25 mg capsule 25 mg PO BID PRN (Reason: anxiety) Qty: 60 0RF (DME) Rollator Walker See Rx Instructions .Route .MEDSUPPLY Qty: 1 0RF Rx Instructions: As directed topiramate 50 mg tablet 50 mg PO BID 30 Days Qty: 60 0RF tizanidine 4 mg tablet 4 mg PO BID PRN (Reason: muscle spasticity) Qty: 60 0RF Discharge Orders: Discharge ED (Routine); Ordered 11/25/24 Ordered By: Yung Bush Referrals: Frank Carrasco, [facility] [Primary Care Provider, Family Practice] Discharge Diet: Usual diet Discharge Activity: Increase activity as tolerated Patient Instructions: Hypertension (ED), Patient Portal & [facility] Instructions Activity Restrictions/Additional Instructions: CT scan of your brain, EKG, and blood work are all reassuring with no evidence of endorgan damage from your high blood pressure. Is safe to follow-up with primary care. Please continue to take at least once a day blood pressure readings so that you can make informed decisions with your primary care doctor whether changes to medication for blood pressure should be made. 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
[2024-11-25 21:35] VITALS: BP 149/81; PULSE 68; RESP 17; O2SAT 94
== END 2024-11-25 21:37 | disposition home or self-care (01) ==
PROVIDERS: Emergency Provider Student in an Organized Health Care Education/Training Program; PCP Nurse Practitioner
DX: I10 Essential (primary) hypertension (principal); R51.9 Headache, unspecified
CPT/HCPCS: 70450; 80053; 85025; 93005; 96361; 96374; 96375; 99285; J0780; J1200; J7030

== ENCOUNTER → 2024-12-23 09:17 | Outpatient (BNVA) | payer OTHER, SELFPAY | PROVIDERS: PCP Nurse Practitioner; Visit Provider Nurse Practitioner | DX: I10 Essential (primary) hypertension (principal); T67.5XXA Heat exhaustion, unspecified, initial encounter | CPT/HCPCS: 80053; 81000; 83735 ==

== ENCOUNTER → 2025-01-11 14:33 | Outpatient (BNVA) | payer OTHER, SELFPAY | PROVIDERS: PCP Nurse Practitioner; Visit Provider Anesthesiology Pain Medicine | DX: M54.9 Dorsalgia, unspecified (principal); M51.16 Intervertebral disc disorders with radiculopathy, lumbar region; M47.816 Spondylosis without myelopathy or radiculopathy, lumbar region | CPT/HCPCS: 99214 ==

== ENCOUNTER 2025-01-12 11:45 | Oncology outpatient (recurring) (ONCR) | payer OTHER, SELFPAY ==
[2025-01-12 12:08] LABS: Hematocrit 39.7 % (36-47); Hemoglobin 13.30 g/dL (11.27-16.99); Mean Corpuscular HGB Conc 33.5 g/dL (30-55); Mean Corpuscular Hemoglobin 32.8 pg (27-33); Mean Corpuscular Volume 98.0 fl (85-98); Nucleated Red Blood Cells % 0 %; Platelet Count 243 10^3/cmm (157-399); Red Blood Count 4.05 10^6/uL (3.85-5.65); White Blood Count 6.70 10^3/uL (3.29-11.43)
[2025-01-12 12:36] LABS: Alanine Aminotransferase 19 U/L (0-33); Albumin Level 4.1 g/dL (3.5-5.2); Alkaline Phosphatase 77 U/L (35-105); Anion Gap 17.4 (5-19); Aspartate Amino Transferase 26 U/L (0-32); Blood Urea Nitrogen 12 mg/dL (8-23); Calcium 9.4 mg/dL (8.5-10.5); Carbon Dioxide 24 mmol/L (22-29); Chloride 104 mmol/L (98-107); Creatinine Clr Calc Pharmacy 83.2713; Ferritin 549 ng/mL (15-150); Globulin 2.8 g/dL (1.3-4.6); Glucose 111 mg/dL (65-115); Iron 143 ug/dL (37-145); Osmolality Calculated 292 mOsm/kg (285-295); Potassium 4.4 mmol/L (3.5-5.1); Sodium 141 mmol/L (136-145); Total Iron Binding Capacity 244 mcg/dl; Total Protein 6.9 g/dL (6.6-8.7); Unsaturated Iron Binding 101 ug/dL (112-347)
[2025-01-12 12:51] LABS: Vitamin B12 607 pg/mL (232-1245)
[2025-01-13 07:20] LABS: PROTEIN, TOTAL 6.7 g/dL (6.1-8.1)
[2025-01-13 21:54] LABS: ALPHA 1 GLOBULIN 0.3 g/dL (0.2-0.3); ALPHA 2 GLOBULIN 0.7 g/dL (0.5-0.9); BETA 1 GLOBULIN 0.4 g/dL (0.4-0.6); BETA 2 GLOBULIN 0.4 g/dL (0.2-0.5)
== END 2025-01-24 23:59 | disposition home or self-care (01) ==
PROVIDERS: PCP Nurse Practitioner; Visit Provider Nurse Practitioner
DX: D53.9 Nutritional anemia, unspecified (principal); I48.91 Unspecified atrial fibrillation; Z87.891 Personal history of nicotine dependence; F10.21 Alcohol dependence, in remission; M54.9 Dorsalgia, unspecified
CPT/HCPCS: 36415; 80053; 82607; 82728; 82746; 83540; 83550; 84155; 84165; 85025; 99214

== ENCOUNTER → 2025-02-18 13:56 | Outpatient (BNVA) | payer OTHER, SELFPAY | PROVIDERS: PCP Nurse Practitioner; Visit Provider Nurse Practitioner | DX: I10 Essential (primary) hypertension (principal) | CPT/HCPCS: 80053; 80061; 85025 ==